=== PATIENT | female | born 1950 | race Caucasian/White ===

== ENCOUNTER 2017-06-29 15:04 | Outpatient (CLI) | payer MEDICARE, OTHER | END 2017-06-29 15:05 | disposition critical access hospital (66) | LOC: EMS 15:04 | PROVIDERS: ATTEND Surgery | DX: R51 Headache (principal); M79.602 Pain in left arm; W01.198A Fall on same level from slipping, tripping and stumbling with subsequent striking against other object, initial encounter; Y93.01 Activity, walking, marching and hiking; Y92.512 Supermarket, store or market as the place of occurrence of the external cause | CPT/HCPCS: A0425; A0429 ==

== ENCOUNTER 2017-06-29 19:14 | Outpatient (CLI) | payer MEDICARE, OTHER | END 2017-06-29 19:15 | disposition short-term general hospital (02) | LOC: EMS 19:14 | PROVIDERS: ATTEND Surgery | DX: R51 Headache (principal); M25.532 Pain in left wrist | CPT/HCPCS: A0425; A0428 ==

== ENCOUNTER 2017-07-17 08:43 | Day surgery (SDC) | payer MEDICARE, OTHER ==
[~2017-07-17 08:43] MED LIST: ceFAZolin 2 GM/50 ML 2 GM/50 ML BAG IV ONE
[2017-07-17] MEDS ORDERED: LACTATED RINGERS 1,000 ML IV ONE ×2 (09:26→12:40)
[2017-07-17] MEDS ORDERED: MIDAZOLAM 2 MG/2 ML VIAL IVP ONE (12:00)
[2017-07-17] MEDS ORDERED: LIDOCAINE-MPF 2% 5 ML VIAL IM ONE (12:00)
[2017-07-17] MEDS ORDERED: DEXAMETHASONE 4 MG/ML VIAL IVP ONE (12:00)
[2017-07-17] MEDS ORDERED: ONDANSETRON 4 MG/2 ML VIAL IVP ONE (12:00)
[2017-07-17] MEDS ORDERED: PROPOFOL 200 MG/20 ML VIAL IVP ONE (12:00)
[2017-07-17] MEDS ORDERED: fentaNYL 100 MCG/2 ML VIAL IVP ONE (12:00)
[2017-07-17] MEDS ORDERED: ROPIVACAINE 0.5% PF 20 ML AMPULE EP ONE (12:00)
--- NOTE | 2017-07-17 12:46 | XRAY Report ---
INTRAOPERATIVE IMAGING OF LEFT RADIUS FRACTURE FIXATION: 07/17/2017 CLINICAL INDICATION: Radial fracture. COMPARISON: 06/29/2017. FINDINGS: Intraoperative frontal and lateral images of the distal radius demonstrate side plate and screw fixation. 12 seconds of fluoroscopy time was provided to Dr. Hill; 9 spot images obtained. IMPRESSION: INTRAOPERATIVE IMAGING OF DISTAL RADIAL FRACTURE FIXATION. JOB #: [id number] EXT JOB #:[id number]
[2017-07-17 13:56] VITALS: BP 127/92
--- NOTE | 2017-07-17 17:54 | OPERATIVE REPORT ---
Operative Report - General Procedure Date: 07/17/17 Planned Procedure: ORIF left distal radius Pre-Op Diagnosis: Left wrist closed comminuted distal radius and ulna fracture Procedure Performed: ORIF left distal radius with volar locking plate Post Op Diagnosis: same - Procedure Note Primary Surgeon: STORM Secondary Surgeon: GERMAIN Anesthesia Provider: JORDIN Anesthesia Technique: General LMA, Regional block Pathology: NONE Estimated Blood Loss (mL): 10 Complications: NONE - Other Other Information/Narrative: Gecko dvr SET ([employer])
--- NOTE | 2017-07-19 03:56 | OPERATIVE REPORT ---
DATE OF SURGERY: 07/17/2017 00:00:00 SURGEON: Jai Hill MD. LENS SILVERER: None. ANESTHESIA: PHILLIP Banerjee. PREOPERATIVE DIAGNOSIS: Closed comminuted distal radius fracture on the left with ulnar styloid fract ure. POSTOPERATIVE DIAGNOSIS: Closed comminuted distal radius fracture on the left with ulnar styloid frac ture. PROCEDURE PERFORMED: Open reduction internal fixation of the left distal radius. IMPLANT: The Biomet distal volar radial locking set. TOURNIQUET TIME: About 19 minutes. ESTIMATED BLOOD LOSS: A few mL. INDICATIONS: This woman had suffered the above-mentioned injury 3 weeks prior to surgery. It took a w hile to get into referral to the clinic and have surgery set up. She was tilted into greater than 20 degrees dorsal tilt, had shortening of the radius and loss of inclination. DESCRIPTION OF PROCEDURE: The patient was brought into the operating room and placed under adequate g eneral anesthesia after a supraclavicular block was administered in the preop area. The left upper ex tremity was then prepped and sterilely draped in the usual fashion. An arm tourniquet was placed to 2 50 mmHg for about 90 minutes. Timeout was then held to identify the patient, site and procedure. The usual volar incision was made along the course of the flexor carpi radialis running distally into a zigzag to allow better radial visualization. The skin was cut sharply. The subcutaneous tissue was spread with scissors and bleeding points cauter ized with the bipolar device. The inner sheath of the flexor carpi radialis was then split longitudinally after displacement of the tendon to the ulnar side. A resolving hemorrhagic muscle was encountered. This was stripped off the margin of the radius carefully. Pronator elevation was carried out around the distal radius. A self-r etaining retractor was placed. This pushed the pronator to the ulnar side and helped protect the medi an nerve from direct pressure. After muscle was removed from the radius and the surface could be seen easily, attention was directed to the radial styloid. Here the brachial radialis tendon was encountered and the distal end cut was a zigzag to allow for healing in the length and position. The fracture line was not evident. Feeling along the volar radius with a Blauvelt, I eventually identifi ed the fracture line. It was possible to introduce a Blauvelt and later an osteotome into the fracture a garry. Osteotome was angled proximally so as to gather the most distal radius as possible. A levering m otion then could be done opening up the dorsum of the fracture where it had been trying to heal. It w as possible to bring the distal fragment back to a neutral tilt position, although further tilting re quired quite a lot of strain. Decision was made not to try to overdo this. The distal volar radial plate from the [employer] system was placed. It was the standard width, standard length. This was pinned in place. Positions were adjusted twice, moving the pins to allow for better positioning. A screw was gotten in the slot proximally and with tension, the plate could be levered down elevating the distal radius. Multiple smooth and threaded pins were placed in the distal segment. One additional bicortical screw was placed proximally, as well as 2 locking screws. C-arm fluoroscopy was used throughout the procedure with good views. At the end of the procedure, the construct was checked carefully. There did not appear to be any scre ws entering the joint. The radial styloid screw appeared to be very well anchored. The radial inclina tion had been restored. There was still possibly a small amount of radial length not restored. The wound was irrigated throughout the procedure and at the end. The pronator could not be reapproxim ated. The flexor carpi radialis sheath was then reapproximated superficial to the flexor carpi radial is tendon. The skin was closed with running 3-0 Prolene subcuticular stitches. A sterile bandage was applied. A bulky bandage was used to allow for some stiffening at the wrist, but avoid over-compressi on. The patient was awakened, extubated and taken to recovery room in good condition having tolerated the procedure well. 13:9:00 JOB #: [id number] EXT JOB #:[id number]
== END 2017-07-17 08:44 | disposition home or self-care (01) ==
LOC: SDS 08:43
PROVIDERS: ATTEND Orthopaedic Surgery
PROC: 0PSJ04Z Reposition Left Radius with Internal Fixation Device, Open Approach (ICD-10-PCS; principal; 2017-07-17 09:45)
DX: S52.612A Displaced fracture of left ulna styloid process, initial encounter for closed fracture (principal); S52.552A Other extraarticular fracture of lower end of left radius, initial encounter for closed fracture
CPT/HCPCS: 25607; C1713; J0690; J7120

== ENCOUNTER 2018-07-01 14:36 | Outpatient (CLI) | payer MEDICARE, OTHER | END 2018-07-01 14:37 | disposition critical access hospital (66) | LOC: EMS 14:36 | PROVIDERS: ATTEND Surgery | DX: S09.90XA Unspecified injury of head, initial encounter (principal); M25.562 Pain in left knee; M25.531 Pain in right wrist; W18.30XA Fall on same level, unspecified, initial encounter; Z91.81 History of falling; Y92.002 Bathroom of unspecified non-institutional (private) residence as the place of occurrence of the external cause | CPT/HCPCS: A0425; A0429 ==

== ENCOUNTER 2018-07-01 14:39 | Inpatient (IN) | payer MEDICARE, OTHER ==
[2018-07-01] MEDS ORDERED: HYDROcod/ACETAM 5/325 MG TABLET PO STA (14:45)
--- NOTE | 2018-07-01 14:48 | ED Physician Documentation ---
PD HPI Fall - Stated complaint Stated Complaint: GLF - History obtained from History obtained from: Patient, EMS - History of Present Illness Mechanism of injury: Lost balance (67-year-old woman with frequent falls. She was last seen here about a year ago, had a wrist fracture and also a tiny traumatic intracranial hemorrhage and was transferred. She falls frequently but has not really been hurt since that time. Today she was walking at home and fell and hit the back of her head on the drywall and also hurt her right wrist and left greater than right knee. She is unable to walk or bear weight. There was no syncopal episode today. She does not know why she falls. She is supposed to follow-up with a neurologist but has not yet made an appointment. She is on a couple of medications that might make her dizzy including Seroquel and Ativan.) Review of Systems Ten Systems: 10 systems reviewed and negative Constitutional: reports: Reviewed and negative Nose: reports: Reviewed and negative Throat: reports: Reviewed and negative Cardiac: reports: Reviewed and negative Respiratory: reports: Reviewed and negative PD PAST MEDICAL HISTORY - Past Medical History Cardiovascular: High cholesterol, Atrial fibrillation Respiratory: Pneumonia Endocrine/Autoimmune: HyPOthyroidism GI: Chronic diarrhea, Chronic constipation, Hemorrhoids : Incontinence, Nocturia, Frequency HEENT: Chronic vision loss Psych: Depression, Anxiety, Bipolar disorder, Panic attacks, ADD/ADHD, Post traumatic stress disorder, Obsessive compulsive disorder, Eating disorder Musculoskeletal: None Derm: None - Past Surgical History General: 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, 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, 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, Other - Present Medications Home Medications: Ambulatory Orders Medication Instructions Recorded Confirmed Lorazepam [Ativan] 1 mg PO DAILY PRN 07/14/17 07/01/18 Quetiapine Fumarate [Seroquel] 400 mg PO DAILY PM 07/14/17 07/01/18 RX: Buspirone HCl 30 mg PO QPM 07/14/17 07/01/18 RX: Levothyroxine Sodium 75 mcg PO QDAC 07/14/17 07/01/18 buPROPion HCl [Bupropion HCl Sr] 200 mg PO 0600,1500 07/14/17 07/01/18 RX: Amphetamine Sulfate [Evekeo] 20 mg PO QPMX3D 07/01/18 07/01/18 RX: Clomipramine HCl 200 mg PO QPM 07/01/18 07/01/18 - Allergies Allergies/Adverse Reactions: Allergies Allergy/AdvReac Type Severity Reaction Status Date / Time tetracycline Allergy Unknown Verified 06/29/17 15:38 - Social History Does the pt smoke?: No Smoking Status: Never smoker Does the pt drink ETOH?: No Does the pt have substance abuse?: No PD ED PE NORMAL - Vitals Vital signs reviewed: Yes - General General: Alert and oriented X 3, No acute distress - HEENT HEENT: PERRL, EOMI (No nystagmus) - Neck Neck: Supple, no meningeal sign, No bony TTP - Cardiac Cardiac: RRR, No murmur, Other (TTP R lat Chest wall) - Respiratory Respiratory: No respiratory distress, Clear bilaterally - Abdomen Abdomen: Normal bowel sounds, Soft, Non tender - Extremities Extremities: Other (There is a slight deformity of the right wrist and it is exquisitely tender and she is unable to range it at all. She has normal neurovascular function in the hand. She is tender over the left patella and tibial plateau and unable to lift it off the bed, she is less tender over the right knee, that is more at the proximal fibular head. Also Mild TTP about the right elbow, but decent ROM.) - Neuro Neuro: Alert and oriented X 3, Normal speech Eye Opening: Spontaneous Motor: Obeys Commands Verbal: Oriented GCS Score: 15 - Psych Psych: Normal mood, Normal affect Results - Vitals Vitals: Vital Signs - 24 hr 07/01/18 14:46 Temperature 36.8 C Heart Rate 81 Respiratory 18 Rate Blood Pressure 133/88 H O2 Saturation 100 Oxygen O2 Source Room air - Labs Labs: Laboratory Tests 07/01/18 07/01/18 07/01/18 16:45 16:45 16:45 WBC 5.6 RBC 4.04 L Hgb 13.3 Hct 38.9 MCV 96.1 MCH 32.9 H MCHC 34.2 RDW 13.7 Plt Count 110 L MPV 7.6 L Neut # (Auto) 3.8 Lymph # (Auto) 1.2 L [place] # (Auto) 0.5 Eos # (Auto) 0.1 Baso # (Auto) 0.0 Absolute Nucleated RBC 0.00 Nucleated RBC % 0.0 PT 13.4 H INR 1.2 Sodium 140 Potassium 4.0 Chloride 101 Carbon Dioxide 29 Anion Gap 10.0 BUN 19 Creatinine 1.0 Estimated GFR (MDRD) 55 L Glucose 98 Calcium 9.0 Total Bilirubin 0.3 AST 27 ALT 35 Alkaline Phosphatase 62 Total Protein 5.8 L Albumin 4.1 Globulin 1.7 L Albumin/Globulin Ratio 2.4 H Lipase 43 - Rads (name of study) 3 views of the right elbow Radiology: EMP read contemporaneously (Negative) 4 views of both knees Radiology: EMP read contemporaneously (Comminuted displaced left patellar fracture with large effusion) CT of the head Radiology: EMP read contemporaneously (No acute disease) R wrist 4v Radiology: EMP read contemporaneously (Comminuted intra-articular impaction distal radius fracture) Procedures - Splint (location) R wrist Splint applied by: Physician Type of splint: Fiberglass, Short arm, Volar cock up Other: Patient tolerated well, No complications, Neurovascular intact PD MEDICAL DECISION MAKING - ED course ED course: 67-year-old woman is with balance problems and frequent today, thoroughly imaged and findings include a comminuted impacted right wrist fracture and a displaced patellar fracture and unable to fire the quadricep. Given the multiple orthopedic injuries and bad baseline status should probably stay in the hospital until this is fixed and I spoke with Dr. Morin, the on-call orthopedist who agrees and defers to the hospitalist for observation and I spoke with Dr. Viramontes for observation at 4:30 PM. Departure - Departure Disposition: ED Place in Observation Clinical Impression: Head injury, Neck sprain, Right wrist fracture, Left patella fracture, Contusion of right chest wall Condition: Serious Discharge Date/Time: 07/01/18 18:11
--- NOTE | 2018-07-01 15:52 | XRAY Report ---
Reason: fall, r wrist inj Procedure Date: 07/01/2018 Accession Number: [id number] / [id number] Procedure: XR - Wrist 4 View RT CPT Code: FULL RESULT: EXAM: RIGHT WRIST RADIOGRAPHY EXAM DATE: 07/01/2018 03:05 PM. CLINICAL HISTORY: Fall, r wrist inj. COMPARISON: None. TECHNIQUE: 3 views. FINDINGS: Bones: Normal. No fractures or bone lesions. Joints: Comminuted intra-articular impaction fracture of the distal right radial metaphysis. Soft Tissues: Normal. No soft tissue swelling. IMPRESSION: Comminuted intra-articular impaction fracture of the distal right radial metaphysis. RADIA
--- NOTE | 2018-07-01 15:53 | XRAY Report ---
Reason: elbow inj fall Procedure Date: 07/01/2018 Accession Number: [id number] / [id number] Procedure: XR - Elbow 3 View RT CPT Code: FULL RESULT: EXAM: RIGHT ELBOW RADIOGRAPHY EXAM DATE: 07/01/2018 03:05 PM. CLINICAL HISTORY: Elbow inj fall. COMPARISON: None. TECHNIQUE: 3 views. FINDINGS: Bones: Normal. No fractures or bone lesions. Joints: Normal. No effusion. No subluxation. Soft Tissues: Normal. No soft tissue swelling. IMPRESSION: Normal elbow radiography. RADIA
--- NOTE | 2018-07-01 15:54 | XRAY Report ---
Reason: fall, both knee inj Procedure Date: 07/01/2018 Accession Number: [id number] / [id number] Procedure: XR - Knee 4 View BILAT CPT Code: FULL RESULT: EXAMS: 1. Right Knee Radiography 2. Left Knee Radiography EXAM DATE:07/01/2018 03:05 PM. CLINICAL HISTORY:Fall, both knee inj. COMPARISON: None. TECHNIQUE: 4 views each. FINDINGS: Right Knee: Bones: Normal. No fractures or bone lesions. Joints: Normal. No effusion. No subluxations. Soft Tissues: Normal. No soft tissue swelling. Left Knee: Bones: Comminuted displaced fracture of the left patella. Joints: Large joint effusion. Soft Tissues: Normal. No soft tissue swelling. IMPRESSION: Comminuted displaced fracture of the left patella with a large joint effusion. RADIA
--- NOTE | 2018-07-01 16:14 | CT Report ---
Reason: fall, head inj Procedure Date: 07/01/2018 Accession Number: [id number] / [id number] Procedure: CT - Head W/O CPT Code: FULL RESULT: EXAM: CT HEAD EXAM DATE: 07/01/2018 03:56 PM. CLINICAL HISTORY: Fall, head inj. COMPARISON: None. TECHNIQUE: Multiaxial CT images were obtained from the foramen magnum to the vertex. Reformats: Sagittal and coronal. IV contrast: None. In accordance with CT protocol optimization, one or more of the following dose reduction techniques were utilized for this exam: automated exposure control, adjustment of mA and/or KV based on patient size, or use of iterative reconstructive technique. FINDINGS: Parenchyma: No intraparenchymal hemorrhage. No evidence of mass, midline shift, or CT findings of infarction. Schultz-white differentiation is distinct. Extraaxial Spaces: Normal for age. No subdural or epidural collections identified. Ventricles: Normal in size and position. Sinuses and Orbits: Imaged paranasal sinuses, orbits, and mastoids show no significant abnormality. Bones: No evidence of fracture or calvarial defect. Other: None. IMPRESSION: No acute intracranial abnormality. RADIA
--- NOTE | 2018-07-01 16:20 | CT Report ---
Reason: R chest wall inj Procedure Date: 07/01/2018 Accession Number: [id number] / [id number] Procedure: CT - Chest W/O CPT Code: FULL RESULT: EXAM: CT CHEST EXAM DATE: 07/01/2018 03:56 PM. CLINICAL HISTORY: R chest wall inj. COMPARISONS: None. TECHNIQUE: Routine helical CT imaging was performed through the chest. IV contrast: None. Reconstructions: Coronal and sagittal. In accordance with CT protocol optimization, one or more of the following dose reduction techniques were utilized for this exam: automated exposure control, adjustment of mA and/or KV based on patient size, or use of iterative reconstructive technique. FINDINGS: Lungs/Pleura: No nodules, bronchial thickening, consolidation, or edema. Pulmonary vasculature is normal. No pericardial or pleural effusion. No pneumothorax. Mediastinum: Small hiatal hernia.. No adenopathy or masses. The heart and great vessels are normal. Bones: Healed fracture of the right 11th, 10th and ninth ribs. Visualized Abdomen: Unremarkable. Other: None. IMPRESSION: 1. Healing nondisplaced fractures of the right ninth, 10th and 11th ribs. 2. No focal consolidation or pleural effusion or pneumothorax. RADIA
--- NOTE | 2018-07-01 16:32 | CT Report ---
Reason: fall, head inj Procedure Date: 07/01/2018 Accession Number: [id number] / [id number] Procedure: CT - Cervical Spine W/O CPT Code: FULL RESULT: EXAM: CT CERVICAL SPINE WITHOUT CONTRAST DATE: 07/01/2018 03:56 PM. HISTORY: Fall, head inj. COMPARISONS: None. TECHNIQUE: Thin-section axial images were acquired of the cervical spine without contrast. Post-processing: Coronal and sagittal reformats. Other: None. In accordance with CT protocol optimization, one or more of the following dose reduction techniques were utilized for this exam: automated exposure control, adjustment of mA and/or KV based on patient size, or use of iterative reconstructive technique. FINDINGS: Alignment: No scoliosis or spondylolisthesis. Bones: No fracture or bone lesion. Interspace Levels/Facets: C1-C2: Unremarkable. C2-C3: Unremarkable. C3-C4: Unremarkable. C4-C5: Unremarkable. C5-C6: Unremarkable. C6-C7: Unremarkable. C7-T1: Unremarkable. Musculature: Normal. No fatty atrophy. Other: The paravertebral and prevertebral soft tissues are unremarkable. The lung apices are clear. IMPRESSION: No acute cervical spine fracture or listhesis. RADIA
[2018-07-01] MEDS ORDERED: ONDANSETRON 4 MG/2 ML VIAL IVP PRN (16:51)
[2018-07-01] MEDS ORDERED: PROCHLORPERAZINE 10 MG/2 ML VIAL IVP PRN (16:51)
[2018-07-01] MEDS ORDERED: TEMAZEPAM 15 MG CAPSULE PO PRN (16:51)
[2018-07-01 16:55] LABS: BASOPHILS % (AUTO) 0.3 %; EOSINOPHILS # (AUTO) 0.1 10^3/uL (0.0-0.7); EOSINOPHILS % (AUTO) 1.6 %; HGB - HEMOGLOBIN 13.3 g/dL (12.0-16.0); LYMPHOCYTES # (AUTO) 1.2 10^3/uL (1.5-3.5); LYMPHOCYTES % (AUTO) 21.4 %; MEAN CORPUSCULAR HEMOGLOBIN 32.9 pg (27.0-31.0); MEAN CORPUSCULAR HGB CONC 34.2 g/dL (32.0-36.0); MEAN CORPUSCULAR VOLUME 96.1 fL (81.0-99.0); MEAN PLATELET VOLUME 7.6 fL (7.9-10.8); MONOCYTES # (AUTO) 0.5 10^3/uL (0.0-1.0); MONOCYTES % (AUTO) 9.2 %; NEUTROPHILS # (AUTO) 3.8 10^3/uL (1.5-6.6); NEUTROPHILS % (AUTO) 67.5 %; PLT - PLATELET COUNT 110 10^3/uL (130-450); RED BLOOD COUNT 4.04 10^6/uL (4.20-5.40); RED CELL DISTRIBUTION WIDTH 13.7 % (12.0-15.0); WHITE BLOOD COUNT 5.6 x10^3/uL (4.8-10.8)
[2018-07-01 17:02] LABS: INR 1.2 (0.8-1.2); PT - PROTHROMBIN TIME 13.4 secs (9.9-12.6)
[2018-07-01 17:04] LABS: ALBUMIN 4.1 g/dL (3.2-5.5); ALBUMIN/GLOBULIN RATIO 2.4 (1.0-2.2); BILIRUBIN,TOTAL 0.3 mg/dL (0.2-1.0); TOTAL PROTEIN 5.8 g/dL (6.7-8.2)
--- NOTE | 2018-07-01 18:20 | HISTORY & PHYSICAL EXAMINATION ---
Chief Complaint - Chief Complaint Chief Complaint: Knee and wrist pain History of Present Illness - Admitted From Admitted From:: ED - History Obtained From Records Reviewed: Previous hospital records in [facility] History obtained from: Patient Exam Limitations: R arm and L knee in splint - History of Present Illness HPI Comment/Other: Pt is a 67 y.o. female with PMH of recurrent falling, known since > 10 years, and hx of PTSD, OCD, bipolar, anxiety, agoraphobia who was walking in her home today and sustained an unprovoked fall in her bathroom. She fell in a manner to hit her head on the drywall (which left a dent) and land on vinyl floor and injured her L knee and R wrist. She reports that she was "out of it" for the fall, but denies true LOC, which is apparently an ongoing issue for her according to her and her , and as per chart review. She denied chest pain, sob, or presyncope prior to the fall and denies any mechanical trigger to cause the fall. She was taken to ED by EMS where she was evaluated with multiple imaging modalities leading to most significantly a diagnosis of a transverse fracture of the L patella, and complex fracture of the R wrist. Orthopedics was called from ED and she was recommended to have fixation of the L patellar fracture, with probably non-operative management of the R wrist. The hospitalist service was called to admit the patient and perform a pre- operative evaluation and medical optimization. History - Past Medical History Cardiovascular: reports: High cholesterol. denies: Coronary artery disease, Angina, Arrhythmia Respiratory: denies: COPD, Shortness of breath, CPAP use Neuro: reports: Headaches, Seizure disorder (Possible - per pt has been told may be type of seizure (Petit mal?) but has not seen neuro), Other (Balance and gait abnormality). 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 Lifestyle related per pt), Father: Cancer, Brother: Cancer Family History Comment/Other: Pt one of 7 kids, knows limited info Re: FH Living arrangement: At home Living Situation: With spouse/s.o. - Substance History Use: Uses substance without health or social issues: NONE, Anxiolytic, Psychoactive Drug (High probability that falls are medicine related - but this has not yet been diagnosed) Abuse: Recurrent use of substance despite neg consequences: NONE Dependence: Experiences withdrawal or developed tolerances: NONE Tobacco Details: Other (Quit 20 years ago, 20 pack year hx) - POLST Patient has POLST: No POLST Status: Full Code Meds/Allgy - Home Medications Home Medications: Ambulatory Orders Medication Instructions Recorded Confirmed Buspirone HCl 30 mg PO QPM 07/14/17 07/01/18 Levothyroxine Sodium 75 mcg PO QDAC 07/14/17 07/01/18 Lorazepam [Ativan] 1 mg PO DAILY PRN 07/14/17 07/01/18 Quetiapine Fumarate [Seroquel] 400 mg PO DAILY PM 07/14/17 07/01/18 buPROPion HCl [Bupropion HCl Sr] 200 mg PO 0600,1500 07/14/17 07/01/18 Amphetamine Sulfate [Evekeo] 20 mg PO QPMX3D 07/01/18 07/01/18 Clomipramine HCl 200 mg PO QPM 07/01/18 07/01/18 - Allergies Allergies/Adverse Reactions: Allergies Allergy/AdvReac Type Severity Reaction Status Date / Time tetracycline Allergy Unknown Verified 06/29/17 15:38 Review of Systems - Constitutional Constitutional: reports: Weakness - Eyes Eyes: denies: Blurred vision, Vision loss, Dipolpia - Cardiovascular Cariovascular: denies: Irregular heart rate, Chest pain, Lightheadedness, Syncope, Exertional dyspnea, Decr. exercise tolerance, Orthopnea - Respiratory Respiratory: denies: Cough, Wheezing, SOB at rest, SOB with exertion - Gastrointestinal Gastrointestinal: reports: Constipation. denies: Abdominal pain, Diarrhea - Musculoskeletal Musculoskeletal: reports: Limited range of motion, Joint pain, Joint swelling - Neurological Neurological: reports: Abnormal gait - Psychiatric Psychiatric: reports: Anxiety Prior Level of Functionality: Independent in home but rarely goes out due to social anxiety Exam - Vital Signs Reviewed Vital Signs: Yes Vital Signs: Vital Signs x48h Temp Pulse Resp BP Pulse Ox 07/01/18 17:10 78 12 134/84 H 99 07/01/18 14:46 36.8 C 81 18 133/88 H 100 - Physical Exam General Appearance: positive: No acute distress Eyes Bilateral: positive: Normal inspection, EOMI Neck: positive: Nml inspection Respiratory: positive: No respiratory distress, Breath sounds nml, Wheezes Cardiovascular: positive: Regular rate & rhythm, No murmur, No gallop Abdomen: positive: Non-tender, No organomegaly, Nml bowel sounds, No distention Skin: positive: Color nml Extremities: positive: Other (L knee in extension splint, LLE neurovascularly intact. R Wrist in splint - neurovascularly intact) Neurologic/Psychiatric: positive: Oriented x3 Conclusion/Plan - Problem List (1) Pre-operative examination for internal medicine Conclusion/Plan: Pt has no known cardiac or pulmonary hx other than a-fib documented in chart but probable paroxysmal as pt sinus on exam. She has no limitations due to chest pain or sob. No known dyspnea on exertion or orthopnea. She has remote hx of smoking. She has tolerated surgery in the past as recently as 1 year ago in this hospital with no post operative complications She has no known FH of anasthesia complications such as malignant hyperthermia. Her revised cardiac risk index is 0.4%-0.5%. I do not identify any barriers or contraindications for orthopedic surgery and feel that she is medically optimized (2) Falls frequently Conclusion/Plan: Possible medication related. Chronic problem, extent of workup unclear, but would recommend completion as outpt. May need placement in SNF due to likely prolonged non-weight bearing status of the LLE and poor home support with hx of falling and elderly spouse. Will get PT consult. Will try to minimize sedating meds and PRN anxiet meds. (3) Left patella fracture Conclusion/Plan: Transverse - medically indicated to fix surgically as patellar tendon and quad tendon will continue to sperate if not fixed. Ortho on board, will keep NPO PM and OR in am. Qualifiers: Encounter type: initial encounter Fracture type: closed Fracture morphology: comminuted Fracture alignment: displaced Qualified Code(s): S82.042A - Displaced comminuted fracture of left patella, initial encounter for closed fracture (4) Right wrist fracture Qualifiers: Encounter type: initial encounter Fracture type: closed Qualified Code(s): S62.101A - Fracture of unspecified carpal bone, right wrist, initial encounter for closed fracture - Lab Results Lab results reviewed: Yes Fish Bones: 07/01/18 16:45 07/01/18 16:45 - Diagnostic Imaging Results Diagnostic Imaging Results: positive: Final report reviewed, Read independently
[2018-07-01] MEDS: ACETAMINOPHEN 325 MG TABLET PO PRN ×2 (18:50→22:25)
[2018-07-01] MEDS: oxyCODONE 5 MG TABLET PO PRN ×2 (18:50→22:24)
[2018-07-01] MEDS: SODIUM CHLORIDE FLUSH 0.9% 10 ML SYRINGE IVP PRN (19:13)
[2018-07-01] MEDS: SODIUM CHLORIDE FLUSH 0.9% 10 ML SYRINGE IVP SCH (19:21)
[2018-07-01] MEDS ORDERED: AMPHETAMINE SULFATE PO SCH (21:00)
[2018-07-01] MEDS: busPIRone 5 MG TABLET PO SCH (22:07)
[2018-07-01] MEDS: QUEtiapine 100 MG TABLET PO SCH (22:07)
[2018-07-01] MEDS: CLOMIPRAMINE HCL 200 MG PO SCH (22:26)
[2018-07-02] MEDS: SODIUM CHLORIDE FLUSH 0.9% 10 ML SYRINGE IVP SCH ×3 (02:15→17:00)
[2018-07-02] MEDS: buPROPion SR 100 MG TABLET PO SCH ×2 (05:26→14:34)
[2018-07-02] MEDS: oxyCODONE 5 MG TABLET PO PRN ×4 (05:26→18:17)
[2018-07-02] MEDS: SODIUM CHLORIDE FLUSH 0.9% 10 ML SYRINGE IVP PRN (05:42)
[2018-07-02] MEDS: SODIUM CHLORIDE 0.9% 1,000 ML IV SCH ×2 (05:42→18:17)
[2018-07-02] MEDS: LEVOTHYROXINE 75 MCG TABLET PO SCH (07:18)
[2018-07-02] MEDS ORDERED: AMPHETAMINE SULFATE PO SCH (08:07)
[2018-07-02] MEDS: ACETAMINOPHEN 325 MG TABLET PO PRN (08:20)
[2018-07-02] MEDS: LORazepam 1 MG TABLET PO PRN (08:21)
[2018-07-02] MEDS: FAMOTIDINE 20 MG/50 ML 50 ML IV SCH (08:25)
[2018-07-02] MEDS: POLYETHYLENE GLYCOL 3350 17 GM PACKET PO SCH ×2 (08:27→16:59)
--- NOTE | 2018-07-02 10:34 | PROVIDER PROGRESS NOTE ---
Subjective - Prog Note Date Prog Note Date: 07/02/18 Prog Note Time: 10:33 - Subjective Pt reports feeling: No change Subjective: Pt c/o pain in the upper back, and along the R thorax/ribs/chest wall. Current Medications - Current Medications Current Medications: Active Medications Acetaminophen (Tylenol) 650 mg PO Q4HR PRN PRN Reason: Pain 1 to 4 Last Admin: 07/02/18 08:20 Dose: 650 mg Bupropion HCl (Wellbutrin Sr) 200 mg PO 0600,1500 [facility] Last Admin: 07/02/18 05:26 Dose: 200 mg Buspirone HCl (Buspar) 30 mg PO QPM [facility] Last Admin: 07/01/18 22:07 Dose: 30 mg Famotidine (Pepcid 20 Mg/50 Ml) 50 mls @ 100 mls/hr IV DAILY [facility] Last Infusion: 07/02/18 09:00 Dose: Infused Sodium Chloride (Normal Saline 0.9%) 1,000 mls @ 83.333 mls/hr IV .Q12H [facility] Last Admin: 07/02/18 05:42 Dose: 83.333 mls/hr Levothyroxine Sodium (Synthroid) 75 mcg PO QDAC [facility] Last Admin: 07/02/18 07:18 Dose: 75 mcg Lorazepam (Ativan) 1 mg PO DAILY PRN PRN Reason: Anxiety Last Admin: 07/02/18 08:21 Dose: 1 mg Non-Formulary Medication (Clomipramine Hcl [Clomipramine Hcl]) 200 mg PO QPM [facility] Last Admin: 07/01/18 22:26 Dose: 200 mg Ondansetron HCl (Zofran Inj) 4 mg IVP Q6HR PRN PRN Reason: Nausea / Vomiting Oxycodone HCl (Roxicodone) 10 mg PO Q4HR PRN PRN Reason: Pain 8 to 10 Last Admin: 07/02/18 05:26 Dose: 10 mg (Amphetamine Sulfate (20 Mg) Tab) 1 each PO QPM [facility] Stop: 07/03/18 21:01 Polyethylene Glycol (Miralax) 17 gm PO DAILY [facility] Last Admin: 07/02/18 08:27 Dose: Not Given Prochlorperazine Edisylate (Compazine Inj) 10 mg IVP Q6HR PRN PRN Reason: Nausea / Vomiting Quetiapine Fumarate (Seroquel) 400 mg PO QPM [facility] Last Admin: 07/01/18 22:07 Dose: 400 mg Sodium Chloride (Normal Saline Flush 0.9%) 10 ml IVP PRN PRN PRN Reason: NEEDED PER PROVIDER ORDERS Last Admin: 07/02/18 05:42 Dose: 10 ml Sodium Chloride (Normal Saline Flush 0.9%) 10 ml IVP 0100,0900,1700 [facility] Last Admin: 07/02/18 08:28 Dose: Not Given Temazepam (Restoril) 15 mg PO QPM PRN PRN Reason: Insomnia Last Admin: 07/01/18 22:25 Dose: 15 mg Buspirone HCl 30 mg PO QPM 07/14/17 Levothyroxine Sodium 75 mcg PO QDAC 07/14/17 Lorazepam [Ativan] 1 mg PO DAILY PRN 07/14/17 Quetiapine Fumarate [Seroquel] 400 mg PO DAILY PM 07/14/17 buPROPion HCl [Bupropion HCl Sr] 200 mg PO 0600,1500 07/14/17 Amphetamine Sulfate [Evekeo] 20 mg PO QPMX3D 07/01/18 Clomipramine HCl 200 mg PO QPM 07/01/18 Objective - Vital Signs/Intake & Output Vital Signs: Vital Signs x48h Temp Pulse Pulse Resp BP Pulse Ox 07/02/18 08:36 36.7 C 85 19 94 07/02/18 07:57 36.7 C 85 19 115/72 93 07/02/18 03:37 104/66 Intake & Output: Intake & Output 06/29/18 06/30/18 07/01/18 07/02/18 23:59 23:59 23:59 23:59 Intake Total 700 170 Output Total 500 Balance 700 -330 - Objective General Appearance: positive: No acute distress Eyes Bilateral: positive: Normal inspection Neck: positive: Nml inspection, Thyroid nml Respiratory: positive: Breath sounds nml Cardiovascular: positive: Regular rate & rhythm, No murmur, No gallop Abdomen: positive: Non-tender, No organomegaly, Nml bowel sounds Back: positive: Other (TTP along the R upper back, w/ bruising) Skin: positive: Other (Echymosis to the R upper back and less so chest wall) Extremities: positive: Other (RUE in short arm splint - not removed for exam, neurovascularly intact to the distal extremities) Neurologic/Psychiatric: positive: Oriented x3, CN's nml (2-12), Motor nml, Sensation nml - Lab Results Fish Bones: 07/01/18 16:45 07/01/18 16:45 Other Labs: Lab Results x24hrs 07/01/18 07/01/18 07/01/18 Range/Units 16:45 16:45 16:45 WBC 5.6 (4.8-10.8) x10^3/uL RBC 4.04 L (4.20-5.40) 10^6/uL Hgb 13.3 (12.0-16.0) g/dL Hct 38.9 (37.0-47.0) % MCV 96.1 (81.0-99.0) fL MCH 32.9 H (27.0-31.0) pg MCHC 34.2 (32.0-36.0) g/dL RDW 13.7 (12.0-15.0) % Plt Count 110 L (130-450) 10^3/uL MPV 7.6 L (7.9-10.8) fL Neut # (Auto) 3.8 (1.5-6.6) 10^3/uL Lymph # (Auto) 1.2 L (1.5-3.5) 10^3/uL [place] # (Auto) 0.5 (0.0-1.0) 10^3/uL Eos # (Auto) 0.1 (0.0-0.7) 10^3/uL Baso # (Auto) 0.0 (0.0-0.1) 10^3/uL Absolute Nucleated RBC 0.00 x10^3/uL Nucleated RBC % 0.0 /100WBC PT 13.4 H (9.9-12.6) secs INR 1.2 (0.8-1.2) Sodium 140 (135-145) mmol/L Potassium 4.0 (3.5-5.0) mmol/L Chloride 101 (101-111) mmol/L Carbon Dioxide 29 (21-32) mmol/L Anion Gap 10.0 (6-13) BUN 19 (6-20) mg/dL Creatinine 1.0 (0.4-1.0) mg/dL Estimated GFR (MDRD) 55 L (>89) Glucose 98 (70-100) mg/dL Calcium 9.0 (8.5-10.3) mg/dL Total Bilirubin 0.3 (0.2-1.0) mg/dL AST 27 (10-42) IU/L ALT 35 (10-60) IU/L Alkaline Phosphatase 62 (42-121) IU/L Total Protein 5.8 L (6.7-8.2) g/dL Albumin 4.1 (3.2-5.5) g/dL Globulin 1.7 L (2.1-4.2) g/dL Albumin/Globulin Ratio 2.4 H (1.0-2.2) Lipase 43 (22-51) U/L - Diagnostic Imaging Diagnostic Imaging Results: positive: Final report reviewed, Read independently ABX Reporting Has patient been on IV antibiotics over the past 48 hours?: No Assessment/Plan - Problem List (2) Falls frequently Impression: Chronic problem, not acute syncope. Has had some outpt w/u, but not with neurology. Likely 2/2 polypharmacy with varios psych meds. Cont to monitor, but no reversible metabolic sources identified up to this point on this admission. (3) Left patella fracture Impression: D/W Dr De La Garza this am at bedside. Will need fixation, pending availability of hardware needed for [place] have to be [place]. Not having surgery today, probably tomorrow. Qualifiers: Encounter type: initial encounter Fracture type: closed Fracture morphology: comminuted Fracture alignment: displaced Qualified Code(s): S82.042A - Displaced comminuted fracture of left patella, initial encounter for closed fracture (4) Right wrist fracture Impression: Impacted articular fracture of radial metaphysis. Ortho currently decided on operative vs non-operative tx, pending results of CT. Not going to OR today, and if this is operable, will need prolonged OR time. Meanwhile, pain controlled with current pain meds, cont splint. Qualifiers: Encounter type: initial encounter Fracture type: closed Qualified Code(s): S62.101A - Fracture of unspecified carpal bone, right wrist, initial encounter for closed fracture (5) Psychiatric disorder Impression: Per pt, pt has multiple pscyh problems including bipolar, OCD, PTSD. Unclear extend of true diagosis. Pt states she recently "fired" her psychiatrist. For now, cont home meds. These may need to be adjusted outpt, but will need to be weaned.
--- NOTE | 2018-07-02 13:03 | CT Report ---
Reason: RIGHT WRIST EVAL INTRARTIC RADIUS. Procedure Date: 07/02/2018 Accession Number: [id number] / [id number] Procedure: CT - Upper Extremity Right W/O CPT Code: FULL RESULT: EXAM: RIGHT WRIST CT WITHOUT CONTRAST EXAM DATE: 07/02/2018 11:05 AM. CLINICAL HISTORY: Fracture. COMPARISON: Radiographs 06/23/2018. TECHNIQUE: Thin-section axial images were acquired of the wrist without contrast. Post-processing: Coronal and sagittal reformats. Other: None. In accordance with CT protocol optimization, one or more of the following dose reduction techniques were utilized for this exam: automated exposure control, adjustment of mA and/or KV based on patient size, or use of iterative reconstructive technique. FINDINGS: Bones: Mildly comminuted, displaced, and impacted intra-articular fracture distal radius. Primary fracture line extends transversely through the metaphysis with extension into the distal radial ulnar joint. Impaction at the dorsal and ulnar aspect of the articular surface results in dorsal angulation of the articular surface measuring 21 degrees relative to the diaphysis. Comminution of the fracture results in a region of articular surface disruption measuring 0.5 x 2.1 cm, AP by transverse. A 2 mm linear fracture fragment present between the articular surfaces at this site. Additional fracture line extends obliquely into the volar aspect of the articular surface. Overall, fracture involves greater than 50% of the articular surface. Mildly comminuted and displaced ulnar styloid fracture. No discrete displaced fracture visualized in the carpus. Joints: Dorsal angulation of the articular surface distal radius. Widening of the scapholunate interval measuring 0.5 cm. Mild widening also present in the pisotriquetral joint with diastases of the osseous fragments measuring 0.5 cm. Small radiocarpal and midcarpal joint effusions. Punctate ossific fragments at the dorsal aspect of the proximal pole of the scaphoid and triquetral. Musculature: No gross fatty atrophy. Evaluation for muscle edema limited on CT. Evaluation of the tendons limited on CT. Other: Mild subcutaneous edema over the dorsal and volar aspects of the wrist. IMPRESSION: 1. Mildly comminuted, displaced, and impacted intra-articular fracture distal radius. 2. 21 degrees dorsal angulation of the articular surface distal radius. 3. Fracture also extends into the distal radial ulnar joint. 4. Small radiocarpal and midcarpal joint effusions. 5. 2 mm ossific fragment between the articular surfaces distal radius and lunate. Two punctate ossific fragments project at the dorsal margin radiocarpal joint. 6. Mildly comminuted and displaced ulnar styloid fracture. 7. Widening of the scapholunate interval, age-indeterminate, suggestive of scapholunate ligament injury. 8. Widening of the pisotriquetral joint, age-indeterminate. RADIA
--- NOTE | 2018-07-02 13:12 | CONSULTATION NOTE ---
Referring Provider Name of Referring Provider:: Amador Escobar MD Consult Date: 07/02/18 (asked to evaluate patient for left patella fracture) Chief Complaint - Chief Complaint Chief Complaint: consultation requested for left patella fracture History of Present Illness - History of Present Illness HPI Comment/Other: Nika is a 67-year-old female with multiple medical/psychiatric history in her usual state of health until 07/01/2018 when she sustained a fall. She reportedly has been falling quite a bit over the last number of months for unclear reasons. Patient reportedly injured her left patella and orthopedics was consulted to evaluate for left patella fracture. Incidentally the patient was reported to have a right wrist fracture as well. The patient was admitted form multiple reasons including safety and inability to care for herself given the concommitant right upper extremity and left lower extremity injuries as well as her history and unclear reasons for her falling. History - Past Medical History Cardiovascular: reports: High cholesterol, Atrial fibrillation Respiratory: reports: Pneumonia Neuro: reports: Headaches, Seizure disorder, Other Endocrine/Autoimmune: reports: HyPOthyroidism GI: reports: Chronic diarrhea, Chronic constipation, Hemorrhoids : reports: Incontinence, Nocturia, Frequency HEENT: reports: Chronic vision loss Psych: reports: Depression, Anxiety, Bipolar disorder, Panic attacks, ADD/ADHD, Post traumatic stress disorder, Obsessive compulsive disorder, Eating disorder Musculoskeletal: reports: None Derm: reports: None MRSA Hx?: No Other Past Medical History: possible seizures, loss of balance with frequent falls (unaware of falling). Difficulty with word finding. 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 Lifestyle related per pt), Father: Cancer, Brother: Cancer Family History Comment/Other: Pt one of 7 kids, knows limited info Re: FH Living arrangement: At home Living Situation: With spouse/s.o. - Substance History Use: Uses substance without health or social issues: NONE, Anxiolytic, Psychoactive Drug (High probability that falls are medicine related - but this has not yet been diagnosed) Abuse: Recurrent use of substance despite neg consequences: NONE Dependence: Experiences withdrawal or developed tolerances: NONE Tobacco Details: Other (Quit 20 years ago, 20 pack year hx) - POLST Patient has POLST: No POLST Status: Full Code Meds/Allgy - Home Medications Home Medications: Ambulatory Orders Medication Instructions Recorded Confirmed Buspirone HCl 30 mg PO QPM 07/14/17 07/01/18 Levothyroxine Sodium 75 mcg PO QDAC 07/14/17 07/01/18 Lorazepam [Ativan] 1 mg PO DAILY PRN 07/14/17 07/01/18 Quetiapine Fumarate [Seroquel] 400 mg PO DAILY PM 07/14/17 07/01/18 buPROPion HCl [Bupropion HCl Sr] 200 mg PO 0600,1500 07/14/17 07/01/18 Amphetamine Sulfate [Evekeo] 20 mg PO QPMX3D 07/01/18 07/01/18 Clomipramine HCl 200 mg PO QPM 07/01/18 07/01/18 Calcium Carbonate [Antacid] 400 mg PO BID 07/02/18 07/02/18 Polyethylene Glycol 3350 [Miralax] 17 gm PO Q3D 07/02/18 07/02/18 - Allergies Allergies/Adverse Reactions: Allergies Allergy/AdvReac Type Severity Reaction Status Date / Time tetracycline Allergy Unknown Verified 06/29/17 15:38 Review of Systems - Other Findings Other Findings: Patient reports some minimal right wrist and left knee pain. She denies head or neck injury denies constitutional symptoms at this time or cardiovascular neurovascular type symptoms preceding or after the fall. Exam - Vital Signs Vital Signs: Vital Signs x48h Temp Pulse Pulse Resp BP Pulse Ox 07/02/18 08:36 36.7 C 85 19 94 07/02/18 07:57 36.7 C 85 19 115/72 93 - Physical Exam Comments/Other: Patient's right upper extremity is in a splint the edges of the splint noted to be padded no skin violation noted she is able to demonstrate gross radial median ulnar motor and sensory function with digits warm throughout with good cap refill less than 2 seconds generally. Patient's left lower extremity is in a knee immobilizer with soft padding underneath the knee skin is intact though there is significant effusion in the prepatellar and left knee joint region. Calf thigh soft nontender she is able to initiate flexion extension ankle and toes but is not able to actively extend the knee. Conclusion/Plan - Diagnosis Diagnosis: Comminuted intra-articular right distal radius fracture and left comminuted intra-articular patella fracture - Plan Plan: Discussed mary grace CT scan of her right wrist and her x-rays of the left knee. We talked about options and we forward for evaluation treatment and operative and nonoperative treatment. Talked about the natural history and relevant literature for these types of injuries. She has experience with a contralateral left distal radius fracture and surgery in the past. We discussed the severity of her injuries in particular the intra-articular and comminuted nature is. We talked about for the right wrist and potentially left knee the potential for failure of surgery the potential for hardware prominence and need to remove hardware all potential for need for additional procedures or even wrist fusion on the right side or other salvage procedure should the above fail specifically as it pertains to the fact that she has a significantly comminuted intra-articular component to her fracture. Went into general risk benefits alternatives of operative and nonoperative treatment. Talked about potential operative risks including but not limited to infection wound problems nerve or blood vessel injury numbness tingling weakness pain stiffness decreased range of motion decreased strength decreased function worsening of her condition failure to "cure" patient problem iatrogenic injury bleeding blood loss blood clot blood clot embolus positioning complications anesthetic complications including but not limited to . Nika verbalized understanding above she verbalized her experience with surgery in the past ve rbalized wish to proceed with operative intervention for the right wrist and left knee. Informed consent was given. We did discuss rehabilitation course. Talked about perioperative management. And we will plan to proceed with operative intervention once appropriate equipment and OR time have been established and patient is found to be optimized from medical perspective. see Hospitalist input. Procedure is right distal radius open reduction internal fixation left patella open reduction internal fixation. - Lab Results Lab results reviewed: Yes Fish Bones: 07/01/18 16:45 07/01/18 16:45
[2018-07-02] MEDS: busPIRone 5 MG TABLET PO SCH (20:57)
[2018-07-02] MEDS: CLOMIPRAMINE HCL 200 MG PO SCH (20:57)
[2018-07-02] MEDS: QUEtiapine 100 MG TABLET PO SCH (20:57)
[2018-07-03] MEDS: SODIUM CHLORIDE FLUSH 0.9% 10 ML SYRINGE IVP SCH ×3 (01:14→17:07)
[2018-07-03] MEDS: ACETAMINOPHEN 325 MG TABLET PO PRN (01:14)
[2018-07-03] MEDS: SODIUM CHLORIDE 0.9% 1,000 ML IV SCH ×2 (05:57→18:43)
[2018-07-03] MEDS: buPROPion SR 100 MG TABLET PO SCH ×2 (06:06→14:28)
[2018-07-03] MEDS: LEVOTHYROXINE 75 MCG TABLET PO SCH (06:06)
[2018-07-03] MEDS: oxyCODONE 5 MG TABLET PO PRN ×3 (06:06→21:25)
[2018-07-03] MEDS: FAMOTIDINE 20 MG/50 ML 50 ML IV SCH (09:18)
--- NOTE | 2018-07-03 11:00 | PROVIDER PROGRESS NOTE ---
Subjective - Prog Note Date Prog Note Date: 07/03/18 Prog Note Time: 11:02 - Subjective Pt reports feeling: No change Subjective: We are waiting for the hardware to arrive today. Surgery will be tomorrow. The plan is for the wrist and the need to be operated on. She is a right-handed dominant patient. Is on full disability and 100% service- connected with the [employer]. However she prefers to use her Medicare benefit. She is asking for home health aides. Current Medications - Current Medications Current Medications: Active Medications Acetaminophen (Tylenol) 650 mg PO Q4HR PRN PRN Reason: Pain 1 to 4 Last Admin: 07/03/18 01:14 Dose: 650 mg Bupropion HCl (Wellbutrin Sr) 200 mg PO 0600,1500 [facility] Last Admin: 07/03/18 06:06 Dose: 200 mg Buspirone HCl (Buspar) 30 mg PO QPM [facility] Last Admin: 07/02/18 20:57 Dose: 30 mg Famotidine (Pepcid 20 Mg/50 Ml) 50 mls @ 100 mls/hr IV DAILY [facility] Last Infusion: 07/03/18 10:49 Dose: Infused Sodium Chloride (Normal Saline 0.9%) 1,000 mls @ 83.333 mls/hr IV .Q12H [facility] Last Admin: 07/03/18 05:57 Dose: 83.333 mls/hr Levothyroxine Sodium (Synthroid) 75 mcg PO QDAC [facility] Last Admin: 07/03/18 06:06 Dose: 75 mcg Lorazepam (Ativan) 1 mg PO DAILY PRN PRN Reason: Anxiety Last Admin: 07/02/18 08:21 Dose: 1 mg Non-Formulary Medication (Clomipramine Hcl [Clomipramine Hcl]) 200 mg PO QPM [facility] Last Admin: 07/02/18 20:57 Dose: 200 mg Ondansetron HCl (Zofran Inj) 4 mg IVP Q6HR PRN PRN Reason: Nausea / Vomiting Oxycodone HCl (Roxicodone) 10 mg PO Q4HR PRN PRN Reason: Pain 8 to 10 Last Admin: 07/03/18 10:12 Dose: 10 mg (Amphetamine Sulfate (20 Mg) Tab) 1 each PO QPM [facility] Stop: 07/03/18 21:01 Last Admin: 07/02/18 21:07 Dose: 1 each Polyethylene Glycol (Miralax) 17 gm PO DAILY [facility] Last Admin: 07/02/18 16:59 Dose: 17 gm Prochlorperazine Edisylate (Compazine Inj) 10 mg IVP Q6HR PRN PRN Reason: Nausea / Vomiting Quetiapine Fumarate (Seroquel) 400 mg PO QPM [facility] Last Admin: 07/02/18 20:57 Dose: 400 mg Sodium Chloride (Normal Saline Flush 0.9%) 10 ml IVP PRN PRN PRN Reason: NEEDED PER PROVIDER ORDERS Last Admin: 07/02/18 05:42 Dose: 10 ml Sodium Chloride (Normal Saline Flush 0.9%) 10 ml IVP 0100,0900,1700 [facility] Last Admin: 07/03/18 09:18 Dose: Not Given Temazepam (Restoril) 15 mg PO QPM PRN PRN Reason: Insomnia Last Admin: 07/01/18 22:25 Dose: 15 mg Buspirone HCl 30 mg PO QPM 07/14/17 Levothyroxine Sodium 75 mcg PO QDAC 07/14/17 Lorazepam [Ativan] 1 mg PO DAILY PRN 07/14/17 Quetiapine Fumarate [Seroquel] 400 mg PO DAILY PM 07/14/17 buPROPion HCl [Bupropion HCl Sr] 200 mg PO 0600,1500 07/14/17 Amphetamine Sulfate [Evekeo] 20 mg PO QPMX3D 07/01/18 Clomipramine HCl 200 mg PO QPM 07/01/18 Calcium Carbonate [Antacid] 400 mg PO BID 07/02/18 Polyethylene Glycol 3350 [Miralax] 17 gm PO Q3D 07/02/18 Objective - Vital Signs/Intake & Output Reviewed Vital Signs: Yes Vital Signs: Vital Signs x48h Temp Pulse Resp BP Pulse Ox 07/03/18 08:00 37.1 C 89 16 114/65 97 Intake & Output: Intake & Output 06/30/18 07/01/18 07/02/18 07/03/18 23:59 23:59 23:59 23:59 Intake Total 700 2440 1712.218 Output Total 2150 1200 Balance 700 290 512.218 - Objective General Appearance: positive: No acute distress, Alert, Other (Thin white female who looks her stated age, vivacious personality, is using her left hand to eat her breakfast of scrambled eggs and bravo.) Eyes Bilateral: positive: PERRL, EOMI ENT: positive: Pharynx nml Neck: positive: No JVD. negative: Stiff neck, Carotid bruit Respiratory: positive: Chest non-tender. negative: Wheezes, Rales, Rhonchi Cardiovascular: positive: Regular rate & rhythm, No murmur. negative: Gallop/S4, Friction rub Abdomen: positive: Non-tender, No organomegaly, Nml bowel sounds, No distention Skin: positive: No rash, Warm, Dry Extremities: positive: No pedal edema, Other (Right arm from elbow down to the hand is in a soft brace with Dereck wrap surrounding that. Fingertips are pink, mobile.) Neurologic/Psychiatric: positive: Oriented x3, CN's nml (2-12), Motor nml - Lab Results Fish Bones: 07/01/18 16:45 07/01/18 16:45 ABX Reporting Has patient been on IV antibiotics over the past 48 hours?: No Assessment/Plan - Problem List (1) Falls frequently Impression: Chronic problem, not acute syncope. Has had some outpt w/u, but not with neurology. Likely 2/2 polypharmacy with varios psych meds. Cont to monitor, but no reversible metabolic sources identified up to this point on this admission. I have asked case management to speak to the patient about her benefits under versus Medicare. She needs education on what she is qualified for in the home. The patient expresses fears regarding her home stay because her has his own "health issues" and may not be able to help take care of her. (2) Left patella fracture Impression: D/W Dr Morin at bedside 07/02 Will need fixation, pending availability of hardware needed for [place] have to be ordered. Surgery is tomorrow. Her revised cardiac index is 0 points, class I risk, 0.4% risk of major cardiac event. Qualifiers: Encounter type: initial encounter Fracture type: closed Fracture morpho logy: comminuted Fracture alignment: displaced Qualified Code(s): S82.042A - Displaced comminuted fracture of left patella, initial encounter for closed fracture (3) Right wrist fracture Impression: Impacted articular fracture of radial metaphysis. Ortho currently decided on operative vs non-operative tx. Not going to OR today bc no hardware available, will need prolonged OR time. Meanwhile, pain controlled with current pain meds, cont splint. Qualifiers: Encounter type: initial encounter Fracture type: closed Qualified Code(s): S62.101A - Fracture of unspecified carpal bone, right wrist, initial en counter for closed fracture (4) Psychiatric disorder Impression: Per pt, pt has multiple pscyh problems including bipolar, OCD, PTSD. Unclear extend of true diagosis. Pt states she recently "fired" her psychiatrist. For now, cont home meds. These may need to be adjusted outpt, but will need to be weaned.
--- NOTE | 2018-07-03 15:59 | PROVIDER PROGRESS NOTE ---
Subjective - Prog Note Date Prog Note Date: 07/03/18 - Subjective Pt reports feeling: No change (pt seen with Jg at bedside. She says she is approximately the same with regards to her right wrist and left knee.) Objective - Vital Signs/Intake & Output Vital Signs: Vital Signs x48h Temp Pulse Resp BP Pulse Ox 07/03/18 15:44 37.1 C 90 18 108/63 97 07/03/18 08:00 37.1 C 89 16 114/65 97 Intake & Output: Intake & Output 06/30/18 07/01/18 07/02/18 07/03/18 23:59 23:59 23:59 23:59 Intake Total 700 2440 2222.218 Output Total 2150 1200 Balance 295 212 7978.218 - Lab Results Fish Bones: 07/01/18 16:45 07/01/18 16:45 - Other Results/Comments Other Results/Comments: Patient's right upper extremity remains neurovascular unchanged distally left lower extremity remains neurovascular grossly unchanged distally. Skin edges around the right wrist splint intact. She is able to move her digits. Patient's left knee shows significant swelling but skin prepatellar is intact. Assessment/Plan - Problem List (1) Left patella fracture Impression: patient unchanged regarding right comminuted intraarticular distal radius fracture and left comminuted intraarticular patella fracture. discussed r/b/a of op and non op with patient again and with Jg. questions answered. reviewed dc planning and recommended rehab/snf given multi trauma and patient nor spouse not able to care for patient. they have interest in home nursing and will see if this is an option, though I have emphasized the concern for safety and need for 24hr help. A snf/rehab facility would also allow for PT opportunities. Plan for dc if post-op stable, on 07/05. reviewed with pt and . continue with plan for right distal radius orif with brachioradialis tenotomy and left patella orif tomorrow. npo past midnight. Qualifiers: Encounter type: subsequent encounter Fracture type: closed Fracture morphology: comminuted Fracture alignment: displaced (2) Right wrist fracture Qualifiers: Encounter type: subsequent encounter Fracture type: closed
[2018-07-03] MEDS: CLOMIPRAMINE HCL 200 MG PO SCH (21:29)
[2018-07-03] MEDS: busPIRone 5 MG TABLET PO SCH (21:29)
[2018-07-03] MEDS: QUEtiapine 100 MG TABLET PO SCH (21:29)
[2018-07-04] MEDS: SODIUM CHLORIDE FLUSH 0.9% 10 ML SYRINGE IVP SCH ×3 (01:38→16:34)
[2018-07-04] MEDS: buPROPion SR 100 MG TABLET PO SCH ×2 (06:17→14:17)
[2018-07-04] MEDS: oxyCODONE 5 MG TABLET PO PRN ×2 (06:18→16:32)
[2018-07-04] MEDS: LEVOTHYROXINE 75 MCG TABLET PO SCH (06:18)
[2018-07-04] MEDS ORDERED: BUPIVACAINE 0.25% PF 30 ML VIAL ONE (06:56)
[2018-07-04] MEDS ORDERED: BUPIVACAINE 0.5% PF 30 ML VIAL ONE (06:57)
--- NOTE | 2018-07-04 07:16 | ANESTHESIA ---
Pre-Anesthesia VS, & Labs - Diagnosis Diagnosis Comminuted intra-articular right distal radius fracture and left comminuted intra-articular patella fracture - Procedure left patella ORID, right radius ORIF Vital Signs: Temp Pulse Resp BP Pulse Ox 37.3 C 97 18 130/75 98 07/03/18 23:35 07/03/18 23:35 07/03/18 23:35 07/03/18 23:35 07/03/18 23:35 Height 5 ft Weight (kg) 60 kg Body Mass Index 25.4 - NPO >8 hours (except meds with sip at 6am) - Is Patient ?: Not Applicable - Lab Results Current Lab Results: Laboratory Tests 07/01/18 16:45: Sodium 140, Potassium 4.0, Chloride 101, Carbon Dioxide 29, Anion Gap 10.0, BUN 19, Creatinine 1.0, Estimated GFR (MDRD) 55 L, Glucose 98, Calcium 9.0, Total Bilirubin 0.3, AST 27, ALT 35, Alkaline Phosphatase 62, Total Protein 5.8 L, Albumin 4.1, Globulin 1.7 L, Albumin/Globulin Ratio 2.4 H, Lipase 43 07/01/18 16:45: PT 13.4 H, INR 1.2 07/01/18 16:45: WBC 5.6, RBC 4.04 L, Hgb 13.3, Hct 38.9, MCV 96.1, MCH 32.9 H, MCHC 34.2, RDW 13.7, Plt Count 110 L, MPV 7.6 L, Neut # (Auto) 3.8, Lymph # (Auto) 1.2 L, [place] # (Auto) 0.5, Eos # (Auto) 0.1, Baso # (Auto) 0.0, Absolute Nucleated RBC 0.00, Nucleated RBC % 0.0 Lab results reviewed: Yes Fish Bones: 07/01/18 16:45 07/01/18 16:45 Home Medications and Allergies Home Medications: Ambulatory Orders Amphetamine Sulfate [Evekeo] 20 mg PO QPMX3D 07/01/18 Clomipramine HCl 200 mg PO QPM 07/01/18 Calcium Carbonate [Antacid] 400 mg PO BID 07/02/18 Polyethylene Glycol 3350 [Miralax] 17 gm PO Q3D 07/02/18 Active Medications Acetaminophen (Tylenol) 650 mg PO Q4HR PRN PRN Reason: Pain 1 to 4 Last Admin: 07/03/18 01:14 Dose: 650 mg Bupropion HCl (Wellbutrin Sr) 200 mg PO 0600,1500 [facility] Last Admin: 07/04/18 06:17 Dose: 200 mg Buspirone HCl (Buspar) 30 mg PO QPM [facility] Last Admin: 07/03/18 21:29 Dose: 30 mg Famotidine (Pepcid 20 Mg/50 Ml) 50 mls @ 100 mls/hr IV DAILY [facility] Last Infusion: 07/03/18 10:49 Dose: Infused Sodium Chloride (Normal Saline 0.9%) 1,000 mls @ 83.333 mls/hr IV .Q12H [facility] Last Infusion: 07/04/18 07:04 Dose: Infused Levothyroxine Sodium (Synthroid) 75 mcg PO QDAC [facility] Last Admin: 07/04/18 06:18 Dose: 75 mcg Lorazepam (Ativan) 1 mg PO DAILY PRN PRN Reason: Anxiety Last Admin: 07/02/18 08:21 Dose: 1 mg Non-Formulary Medication (Clomipramine Hcl [Clomipramine Hcl]) 200 mg PO QPM [facility] Last Admin: 07/03/18 21:29 Dose: 200 mg Ondansetron HCl (Zofran Inj) 4 mg IVP Q6HR PRN PRN Reason: Nausea / Vomiting Oxycodone HCl (Roxicodone) 10 mg PO Q4HR PRN PRN Reason: Pain 8 to 10 Last Admin: 07/04/18 06:18 Dose: 10 mg (Amphetamine Sulfate (20 Mg) Tab) 1 each PO DAILY [facility] Stop: 07/05/18 09:01 Polyethylene Glycol (Miralax) 17 gm PO DAILY [facility] Last Admin: 07/02/18 16:59 Dose: 17 gm Prochlorperazine Edisylate (Compazine Inj) 10 mg IVP Q6HR PRN PRN Reason: Nausea / Vomiting Quetiapine Fumarate (Seroquel) 400 mg PO QPM [facility] Last Admin: 07/03/18 21:29 Dose: 400 mg Sodium Chloride (Normal Saline Flush 0.9%) 10 ml IVP PRN PRN PRN Reason: NEEDED PER PROVIDER ORDERS Last Admin: 07/02/18 05:42 Dose: 10 ml Sodium Chloride (Normal Saline Flush 0.9%) 10 ml IVP 0100,0900,1700 LISA Last Admin: 07/04/18 01:38 Dose: Not Given Temazepam (Restoril) 15 mg PO QPM PRN PRN Reason: Insomnia Last Admin: 07/01/18 22:25 Dose: 15 mg Buspirone HCl 30 mg PO QPM 07/14/17 Levothyroxine Sodium 75 mcg PO QDAC 07/14/17 Lorazepam [Ativan] 1 mg PO DAILY PRN 07/14/17 Quetiapine Fumarate [Seroquel] 400 mg PO DAILY PM 07/14/17 buPROPion HCl [Bupropion HCl Sr] 200 mg PO 0600,1500 07/14/17 Amphetamine Sulfate [Evekeo] 20 mg PO QPMX3D 07/01/18 Clomipramine HCl 200 mg PO QPM 07/01/18 Calcium Carbonate [Antacid] 400 mg PO BID 07/02/18 Polyethylene Glycol 3350 [Miralax] 17 gm PO Q3D 07/02/18 Allergies/Adverse Reactions: Allergies Allergy/AdvReac Type Severity Reaction Status Date / Time tetracycline Allergy Unknown Verified 06/29/17 15:38 Anes History & Medical History - Anesthetic History Anesthesia Complications: reports: No previous complications - Medical History Cardiovascular: reports: High cholesterol, Atrial fibrillation Pulmonary: reports: Pneumonia Gastrointestinal: reports: Chronic diarrhea, Chronic constipation, Hemorrhoids Urinary: reports: Incontinence, Nocturia, Frequency Neuro: reports: Headaches, Seizure disorder, Other (recurrent falls, was scheduled to see neurologist) Musculoskeletal: reports: None Endocrine/Autoimmune: reports: HyPOthyroidism Blood Disorders: reports: None Skin: reports: None Smoking Status: Never smoker Psychosocial: reports: Other (bipolar) Other Past Medical History: possible seizures, loss of balance with frequent falls (unaware of falling). Difficulty with word finding. T-11 fracture - Surgical History General: 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, Other Gynecologic: Hysterectomy, Oophrectomy, Other Exam General: Alert Dental: WNL Mouth Openin Fingerbreadth Mallampati classification: II Thyromental Distance: 4-6 cm Respiratory: Lungs clear Cardiovascular: Regular rate Mental/Cognitive Status: Alert/Oriented X3 Plan Anesthesia Type: General, Supraclavicular Block (if needed in PACU) Consent for Procedure(s) Verified and Reviewed: Yes Code Status: Attempt Resuscitation ASA classification: 2-Mild systemic disease Is this case an emergency?: No
--- NOTE | 2018-07-04 07:29 | PROVIDER PROGRESS NOTE ---
Objective - Vital Signs/Intake & Output Vital Signs: Vital Signs x48h Temp Pulse Resp BP Pulse Ox 07/03/18 23:35 37.3 C 97 18 130/75 98 Intake & Output: Intake & Output 07/01/18 07/02/18 07/03/18 07/04/18 23:59 23:59 23:59 23:59 Intake Total 700 2440 3858.218 1000 Output Total 2150 2500 500 Balance 191 675 7333.218 500 - Lab Results Fish Bones: 07/01/18 16:45 07/01/18 16:45 Assessment/Plan - Problem List (1) Left patella fracture Impression: Patient with right intra-articular comminuted displaced distal radius fracture and left displaced comminuted intra-articular left patella fracture. Patient was seen and examined this morning. Consent and risk benefits alternatives again reviewed. Will continue with plan for open reduction internal fixation right distal radius fracture with possible brachioradialis tenotomy. We will continue with plans for left patella open reduction internal fixation. Qualifiers: Encounter type: subsequent encounter Fracture type: closed Fracture morphology: comminuted Fracture alignment: displaced (2) Right wrist fracture Qualifiers: Encounter type: subsequent encounter Fracture type: closed
[2018-07-04] MEDS ORDERED: ceFAZolin 2 GM/50 ML 2 GM/50 ML BAG IV ONE (07:46)
[2018-07-04] MEDS ORDERED: BUPIVACAINE 0.25%-EPI 1:200000 PF 30 ML VIAL ONE (07:59)
[2018-07-04] MEDS ORDERED: BUPIVACAINE 0.25%-EPI 1:200000 PF 10 ML VIAL SUBQ ONE (08:20)
[2018-07-04] MEDS ORDERED: BUPIVACAINE 0.25% PF 30 ML VIAL SUBQ ONE (08:20)
[2018-07-04] MEDS ORDERED: LACTATED RINGERS 1,000 ML IV ONE ×2 (08:21→10:00)
--- NOTE | 2018-07-04 08:36 | PROVIDER PROGRESS NOTE ---
Subjective - Prog Note Date Prog Note Date: 07/04/18 Prog Note Time: 19:17 - Subjective Pt reports feeling: No change Subjective: She went to the operating room this morning. So far is tolerated everything well. Current Medications - Current Medications Current Medications: Active Medications Acetaminophen (Tylenol) 650 mg PO Q4HR PRN PRN Reason: Pain 1 to 4 Bupropion HCl (Wellbutrin Sr) 200 mg PO 0600,1500 ON LICENSE OF [facility] Last Admin: 07/04/18 14:17 Dose: 200 mg Buspirone HCl (Buspar) 30 mg PO QPM LISA Last Admin: 07/03/18 21:29 Dose: 30 mg Calcium Citrate () 250 mg PO BID ON LICENSE OF [facility] Last Admin: 07/04/18 16:33 Dose: 250 mg Cholecalciferol (Vitamin D3) 2,000 unit PO DAILY ON LICENSE OF [facility] Last Admin: 07/04/18 16:33 Dose: 2,000 unit Famotidine (Pepcid 20 Mg/50 Ml) 50 mls @ 100 mls/hr IV DAILY ON LICENSE OF [facility] Last Infusion: 07/04/18 15:10 Dose: Infused Sodium Chloride (Normal Saline 0.9%) 1,000 mls @ 83.333 mls/hr IV .Q12H ON LICENSE OF [facility] Last Admin: 07/04/18 14:18 Dose: 83.3 mls/hr Cefazolin Sodium/Dextrose (Ancef 2 Gm/50 Ml) 2 gm in 50 mls @ 100 mls/hr IV Q8H ON LICENSE OF [facility] Last Infusion: 07/04/18 17:59 Dose: Infused Levothyroxine Sodium (Synthroid) 75 mcg PO QDAC ON LICENSE OF [facility] Last Admin: 07/04/18 06:18 Dose: 75 mcg Lorazepam (Ativan) 1 mg PO DAILY PRN PRN Reason: Anxiety Last Admin: 07/02/18 08:21 Dose: 1 mg Morphine Sulfate (Morphine (Carpuject)) 1 - 2 mg IVP Q3HR PRN PRN Reason: PAIN Last Admin: 07/04/18 18:28 Dose: 2 mg Non-Formulary Medication (Clomipramine Hcl [Clomipramine Hcl]) 200 mg PO QPM LISA Last Admin: 07/03/18 21:29 Dose: 200 mg Ondansetron HCl (Zofran Inj) 4 mg IVP Q6HR PRN PRN Reason: Nausea / Vomiting Oxycodone HCl (Roxicodone) 10 mg PO Q4HR PRN PRN Reason: Pain 8 to 10 Last Admin: 07/04/18 16:32 Dose: 10 mg Oxycodone HCl (Roxicodone) 5 mg PO Q4HR PRN PRN Reason: Pain 5 to 7 (Amphetamine Sulfate (20 Mg) Tab) 1 each PO DAILY ON LICENSE OF [facility] Stop: 07/05/18 09:01 Last Admin: 07/04/18 14:18 Dose: 1 each Polyethylene Glycol (Miralax) 17 gm PO DAILY ON LICENSE OF [facility] Prochlorperazine Edisylate (Compazine Inj) 10 mg IVP Q6HR PRN PRN Reason: Nausea / Vomiting Quetiapine Fumarate (Seroquel) 400 mg PO QPM ON LICENSE OF [facility] Last Admin: 07/03/18 21:29 Dose: 400 mg Saccharomyces Boulardii (Florastor) 250 mg PO BIDWM ON LICENSE OF [facility] Last Admin: 07/04/18 16:33 Dose: 250 mg Sodium Chloride (Normal Saline Flush 0.9%) 10 ml IVP PRN PRN PRN Reason: NEEDED PER PROVIDER ORDERS Last Admin: 07/02/18 05:42 Dose: 10 ml Sodium Chloride (Normal Saline Flush 0.9%) 10 ml IVP 0100,0900,1700 ON LICENSE OF [facility] Last Admin: 07/04/18 16:34 Dose: Not Given Temazepam (Restoril) 15 mg PO QPM PRN PRN Reason: Insomnia Last Admin: 07/01/18 22:25 Dose: 15 mg Throat Lozenges (Cepacol) 1 lozenge MM Q2HR PRN PRN Reason: Throat pain Last Admin: 07/04/18 14:19 Dose: 1 lozenge Buspirone HCl 30 mg PO QPM 07/14/17 Levothyroxine Sodium 75 mcg PO QDAC 07/14/17 Lorazepam [Ativan] 1 mg PO DAILY PRN 07/14/17 Quetiapine Fumarate [Seroquel] 400 mg PO DAILY PM 07/14/17 buPROPion HCl [Bupropion HCl Sr] 200 mg PO 0600,1500 07/14/17 Amphetamine Sulfate [Evekeo] 20 mg PO QPMX3D 07/01/18 Clomipramine HCl 200 mg PO QPM 07/01/18 Calcium Carbonate [Antacid] 400 mg PO BID 10/29/18 Polyethylene Glycol 3350 [Miralax] 17 gm PO Q3D 07/02/18 Objective - Vital Signs/Intake & Output Reviewed Vital Signs: Yes Intake & Output: Intake & Output 07/01/18 07/02/18 07/03/18 07/04/18 23:59 23:59 23:59 23:59 Intake Total 700 2440 3858.218 1000 Output Total 2150 2500 500 Balance 453 419 0249.218 500 - Objective General Appearance: positive: No acute distress, Alert Eyes Bilateral: positive: PERRL, EOMI ENT: positive: Pharynx nml Neck: positive: No JVD. negative: Carotid bruit Respiratory: positive: Chest non-tender. negative: Wheezes, Rales, Rhonchi Cardiovascular: positive: Regular rate & rhythm. negative: Gallop/S4, Friction rub Abdomen: positive: Non-tender, No organomegaly, Nml bowel sounds, No distention Skin: positive: Warm, Dry Neurologic/Psychiatric: positive: Oriented x3, CN's nml (2-12), Motor nml - Lab Results Fish Bones: 07/01/18 16:45 07/01/18 16:45 ABX Reporting Has patient been on IV antibiotics over the past 48 hours?: No Assessment/Plan - Problem List (1) Left patella fracture Impression: D/W Dr Morin at bedside 07/02 Will need fixation, pending availability of hardware needed for surgery - [place] and will have to be ordered. Surgery was today. POD #0 for open reduction internal fixation right distal radius fracture with possible brachioradialis tenotomy as well as left patella open reduction internal fixation. Her revised cardiac index is 0 points, class I risk, 0.4% risk of major cardiac event. Qualifiers: Encounter type: initial encounter Fracture type: closed Fracture morphology: comminuted Fracture alignment: displaced Qualified Code(s): S82.042A - Displaced comminuted fracture of left patella, initial encounter for closed fracture (2) Right wrist fracture Impression: Impacted articular fracture of radial metaphysis. Ortho currently decided on operative vs non-operative tx. Did not go to OR yesterday bc no hardware available, will need prolonged OR time. Meanwhile, pain controlled with current pain meds, cont splint. Surgery was today. POD #0 Qualifiers: Encounter type: initial encounter Fracture type: closed Qualified Code(s): S62.101A - Fracture of unspecified carpal bone, right wrist, initial encounter for closed fracture (3) Psychiatric disorder Impression: Per pt, pt has multiple pscyh problems including bipolar, OCD, PTSD. Unclear extend of true diagosis. Pt states she recently "fired" her psychiatrist. For now, cont home meds. These may need to be adjusted outpt, but will need to be weaned. (5) Falls frequently Impression: Chronic problem, not acute syncope. Has had some outpt w/u, but not with neurology. Likely 2/2 polypharmacy with varios psych meds. Cont to monitor, but no reversible metabolic sources identified up to this point on this admission. I have asked case management to speak to the patient about her benefits under versus Medicare. She needs education on what she is qualified for in the home. The patient expresses fears regarding her home stay because her has his own "health issues" and may not be able to help take care of her. Case management did see her: I went and talked to the patient she said that she could use [facility] for [facility] out patient care and wanted to do that so called the [facility] talked to Deepthi who said they might pay for an aid at home. care manage needs to follow up with [facility] tomorrow Deepthi said to call the clinical social work aide at and talk to Shweta Dupree and she can help set up an aid for home message left for care manger to follow up on tomorrow.
[2018-07-04] MEDS ORDERED: ROPIVACAINE 0.5% PF 20 ML AMPULE ONE (09:12)
--- NOTE | 2018-07-04 11:37 | XRAY Report ---
Reason: ORIF PATELLA Procedure Date: 07/04/2018 Accession Number: [id number] / [id number] Procedure: [place] - OR C-Arm Procedure CPT Code: FULL RESULT: EXAM: FLUOROSCOPIC GUIDANCE EXAM DATE: 07/04/2018 09:24 AM. CLINICAL HISTORY: ORIF patella. COMPARISON: None. FINDINGS: Images demonstrate a patellar tension band construct. IMPRESSION: Fluoroscopic guidance provided for orthopedic procedure. Total fluoroscopy time: 0.3 minutes. Number of images: 3. RADIA
[2018-07-04] MEDS ORDERED: SENNA 8.6 MG TABLET PO SCH (12:00)
[2018-07-04] MEDS ORDERED: DOCUSATE SODIUM 250 MG CAPSULE PO SCH (12:00)
[2018-07-04] MEDS ORDERED: oxyCODONE 5 MG TABLET PO PRN (12:21)
[2018-07-04] MEDS ORDERED: ACETAMINOPHEN 325 MG TABLET PO PRN (12:21)
--- NOTE | 2018-07-04 12:21 | IMMEDIATE POSTOPERATIVE NOTE ---
Immediate Postoperative Note - Procedure Note Procedure Date: 07/04/18 Pre-Op Diagnosis: RIGHT DISTAL RADIUS FRACTURE, LEFT PATELLA FRACTURE Procedure: ORIF RIGHT DISTAL RADIUS, ORIF LEFT PATELLA Post-Op Diagnosis: SAME Primary Surgeon: VIANEY Pleater Hand: NONE Anesthesia Type: General LMA, Local, Regional block Complications: No complications Plan of Care: NWB RUE AND LLE, CONTINUE MEDICAL CARE, KEEP DRESSING CLEAN DRY INTACT. PLAN FOR SNF/REHAB TOMORROW
[2018-07-04] MEDS: ceFAZolin 2 GM/50 ML 2 GM/50 ML BAG IV SCH ×2 (13:11→16:33)
[2018-07-04] MEDS: SODIUM CHLORIDE 0.9% 1,000 ML IV SCH ×2 (14:18→20:09)
[2018-07-04] MEDS: FAMOTIDINE 20 MG/50 ML 50 ML IV SCH (14:18)
[2018-07-04] MEDS: AMPHETAMINE SULFATE PO SCH (14:18)
[2018-07-04] MEDS: BENZOCAINE/MENTHOL LOZENGE MM PRN (14:19)
[2018-07-04] MEDS: CHOLECALCIFEROL 1,000 UNIT TABLET PO SCH (16:33)
[2018-07-04] MEDS: CALCIUM CITRATE 250 MG TABLET PO SCH ×2 (16:33→20:58)
[2018-07-04] MEDS: SACCHAROMYCES BOULARDII 250 MG CAPSULE PO SCH (16:33)
[2018-07-04] MEDS: MORPHINE 2 MG/ML CARPUJECT IVP PRN ×2 (18:28→22:23)
[2018-07-04] MEDS: LORazepam 2 MG/ML VIAL IVP PRN ×2 (20:25→22:22)
[2018-07-04] MEDS: busPIRone 5 MG TABLET PO SCH (20:57)
[2018-07-04] MEDS: QUEtiapine 100 MG TABLET PO SCH (20:58)
[2018-07-04] MEDS: CLOMIPRAMINE HCL 200 MG PO SCH (21:00)
[2018-07-05] MEDS: LORazepam 2 MG/ML VIAL IVP PRN ×6 (00:24→23:32)
[2018-07-05] MEDS: SODIUM CHLORIDE FLUSH 0.9% 10 ML SYRINGE IVP SCH ×3 (00:24→18:21)
[2018-07-05] MEDS: ceFAZolin 2 GM/50 ML 2 GM/50 ML BAG IV SCH ×3 (00:25→18:18)
[2018-07-05] MEDS: oxyCODONE 5 MG TABLET PO PRN ×5 (00:25→20:09)
[2018-07-05] MEDS ORDERED: ACETAMINOPHEN 325 MG TABLET PO PRN (00:45)
--- NOTE | 2018-07-05 00:57 | XRAY Report ---
Reason: SOB and fever Procedure Date: 07/05/2018 Accession Number: [id number] / [id number] Procedure: XR - Chest 1 View X-Ray CPT Code: 79618 FULL RESULT: EXAM: CHEST RADIOGRAPHY EXAM DATE: 07/05/2018 12:47 AM. CLINICAL HISTORY: Shortness of breath and fever after knee surgery. COMPARISON: CHEST 1 VIEW 06/29/2017 4:19 PM. TECHNIQUE: 1 view. FINDINGS: Lungs/Pleura: Small lung volumes. Possible pulmonary vascular congestion. Mild bibasilar atelectasis or infiltrate. No pleural effusion. No pneumothorax. Mediastinum: Within exam limitations, the cardiomediastinal contour is normal. Other: None. IMPRESSION: 1. Small lung volumes with mild bibasilar atelectasis or infiltrate. 2. Possible mild pulmonary vascular congestion. RADIA
[2018-07-05 01:17] LABS: ALBUMIN/GLOBULIN RATIO 1.5 (1.0-2.2); ALKALINE PHOSPHATASE 46 IU/L (42-121); ALT ALANINE AMINOTRANSFERASE 27 IU/L (10-60); AST ASPARTATE AMINOTRANSFERASE 30 IU/L (10-42); BILIRUBIN,TOTAL 0.4 mg/dL (0.2-1.0); BUN - BLOOD UREA NITROGEN 13 mg/dL (6-20); CALCIUM 7.2 mg/dL (8.5-10.3); CARBON DIOXIDE - CO2 21 mmol/L (21-32); CHLORIDE 105 mmol/L (101-111); CREATININE 0.6 mg/dL (0.4-1.0); GFR - MDRD 100 (>89); GLUCOSE 132 mg/dL (70-100); SODIUM 135 mmol/L (135-145)
[2018-07-05 01:28] LABS: BILIRUBIN,URINE NEGATIVE (NEGATIVE); GLUCOSE, URINE (UA) NEGATIVE (NEGATIVE); KETONES,URINE (UA) NEGATIVE (NEGATIVE); LEUKOCYTE ESTERASE, URINE NEGATIVE (NEGATIVE); NITRITE,URINE NEGATIVE (NEGATIVE); OCCULT BLOOD,URINE SMALL (NEGATIVE); PH,URINE 7.5 PH (5.0-7.5); PROTEIN,URINE NEGATIVE (NEGATIVE); UROBILINOGEN,URINE 0.2 (NORMAL) E.U./dL (NORMAL)
[2018-07-05 01:37] LABS: BASOPHILS # (AUTO) 0.1 10^3/uL (0.0-0.1); BASOPHILS % (AUTO) 0.8 %; HGB - HEMOGLOBIN 9.9 g/dL (12.0-16.0); LYMPHOCYTES # (AUTO) 0.8 10^3/uL (1.5-3.5); LYMPHOCYTES % (AUTO) 10.4 %; MEAN CORPUSCULAR HEMOGLOBIN 33.1 pg (27.0-31.0); MEAN CORPUSCULAR HGB CONC 33.8 g/dL (32.0-36.0); MEAN CORPUSCULAR VOLUME 97.8 fL (81.0-99.0); MEAN PLATELET VOLUME 8.2 fL (7.9-10.8); MONOCYTES % (AUTO) 12.3 %; NEUTROPHILS # (AUTO) 6.2 10^3/uL (1.5-6.6); NEUTROPHILS % (AUTO) 76.5 %; PLT - PLATELET COUNT 99 10^3/uL (130-450); RED BLOOD COUNT 2.99 10^6/uL (4.20-5.40); RED CELL DISTRIBUTION WIDTH 13.7 % (12.0-15.0); WHITE BLOOD COUNT 8.1 x10^3/uL (4.8-10.8)
[2018-07-05 01:39] LABS: BACTERIA,URINE Rare /HPF (None Seen); CLARITY,URINE CLEAR (CLEAR); SQUAMOUS EPITHELIAL CELL,UR RARE Squamous (<= Few)
[2018-07-05 02:06] LABS: VBG PH 7.415 (7.31-7.41)
[2018-07-05] MEDS: SODIUM CHLORIDE 0.9% 1,000 ML IV SCH ×2 (03:05→18:18)
[2018-07-05] MEDS: buPROPion SR 100 MG TABLET PO SCH ×2 (05:23→14:00)
[2018-07-05] MEDS: LEVOTHYROXINE 75 MCG TABLET PO SCH (05:24)
--- NOTE | 2018-07-05 07:42 | PROVIDER PROGRESS NOTE ---
Subjective - Prog Note Date Prog Note Date: 07/05/18 - Subjective Subjective: Nika is seen and examined while in her hospital room. She is somnolent but arousable and somewhat cooperative with physical examination.She does not indicate any pain at this time. Objective - Vital Signs/Intake & Output Vital Signs: Vital Signs x48h Temp Pulse Resp BP Pulse Ox 07/05/18 04:30 37.8 C H 98 20 126/69 92 07/05/18 01:39 38.1 C H 07/04/18 23:58 39.1 C H 102 H 18 117/85 H 92 Intake & Output: Intake & Output 07/02/18 07/03/18 07/04/18 07/05/18 23:59 23:59 23:59 23:59 Intake Total 2440 3858.218 1600 1050.000 Output Total 2150 2500 2100 225 Balance 290 1358.218 -500 825.000 - Lab Results Fish Bones: 07/05/18 00:50 07/05/18 00:50 Other Labs: Lab Results x24hrs 07/05/18 07/05/18 07/05/18 Range/Units 02:00 01:15 00:50 WBC 8.1 (4.8-10.8) x10^3/uL RBC 2.99 L (4.20-5.40) 10^6/uL Hgb 9.9 L (12.0-16.0) g/dL Hct 29.3 L (37.0-47.0) % MCV 97.8 (81.0-99.0) fL MCH 33.1 H (27.0-31.0) pg MCHC 33.8 (32.0-36.0) g/dL RDW 13.7 (12.0-15.0) % Plt Count 99 L (130-450) 10^3/uL MPV 8.2 (7.9-10.8) fL Neut # (Auto) 6.2 (1.5-6.6) 10^3/uL Lymph # (Auto) 0.8 L (1.5-3.5) 10^3/uL [place] # (Auto) 1.0 (0.0-1.0) 10^3/uL Eos # (Auto) 0.0 (0.0-0.7) 10^3/uL Baso # (Auto) 0.1 (0.0-0.1) 10^3/uL Absolute Nucleated RBC 0.00 x10^3/uL Nucleated RBC % 0.0 /100WBC VBG pH 7.415 H (7.31-7.41) Sodium (135-145) mmol/L Potassium (3.5-5.0) mmol/L Chloride (101-111) mmol/L Carbon Dioxide (21-32) mmol/L Anion Gap (6-13) BUN (6-20) mg/dL Creatinine (0.4-1.0) mg/dL Estimated GFR (MDRD) (>89) Glucose (70-100) mg/dL Lactic Acid (0.5-2.2) mmol/L Calcium (8.5-10.3) mg/dL Ionized Calcium 0.97 L Total Bilirubin (0.2-1.0) mg/dL AST (10-42) IU/L ALT (10-60) IU/L Alkaline Phosphatase (42-121) IU/L Total Protein (6.7-8.2) g/dL Albumin (3.2-5.5) g/dL Globulin (2.1-4.2) g/dL Albumin/Globulin Ratio (1.0-2.2) Urine Color YELLOW Urine Clarity CLEAR (CLEAR) Urine pH 7.5 (5.0-7.5) PH Ur Specific [place] 1.015 (1.002-1.030) Urine Protein NEGATIVE (NEGATIVE) mg/dL Urine Glucose (UA) NEGATIVE (NEGATIVE) mg/dL Urine Ketones NEGATIVE (NEGATIVE) mg/dL Urine Occult Blood SMALL H (NEGATIVE) Urine Nitrite NEGATIVE (NEGATIVE) Urine Bilirubin NEGATIVE (NEGATIVE) Urine Urobilinogen 0.2 (NORMAL) (NORMAL) E.U./dL Ur Leukocyte Esterase NEGATIVE (NEGATIVE) Urine RBC 6-10 H (0-5) /HPF Urine WBC 0-3 (0-5) /HPF Ur Squamous Epith Cells RARE Squamous (<= Few) Urine Bacteria Rare (None Seen) /HPF Urine Culture Comments NOT INDICATED 07/05/18 07/05/18 Range/Units 00:50 00:50 WBC (4.8-10.8) x10^3/uL RBC (4.20-5.40) 10^6/uL Hgb (12.0-16.0) g/dL Hct (37.0-47.0) % MCV (81.0-99.0) fL MCH (27.0-31.0) pg MCHC (32.0-36.0) g/dL RDW (12.0-15.0) % Plt Count (130-450) 10^3/uL MPV (7.9-10.8) fL Neut # (Auto) (1.5-6.6) 10^3/uL Lymph # (Auto) (1.5-3.5) 10^3/uL [place] # (Auto) (0.0-1.0) 10^3/uL Eos # (Auto) (0.0-0.7) 10^3/uL Baso # (Auto) (0.0-0.1) 10^3/uL Absolute Nucleated RBC x10^3/uL Nucleated RBC % /100WBC VBG pH (7.31-7.41) Sodium 135 (135-145) mmol/L Potassium 3.9 (3.5-5.0) mmol/L Chloride 105 (101-111) mmol/L Carbon Dioxide 21 (21-32) mmol/L Anion Gap 9.0 (6-13) BUN 13 (6-20) mg/dL Creatinine 0.6 (0.4-1.0) mg/dL Estimated GFR (MDRD) 100 (>89) Glucose 132 H (70-100) mg/dL Lactic Acid 1.8 (0.5-2.2) mmol/L Calcium 7.2 L (8.5-10.3) mg/dL Ionized Calcium YES Total Bilirubin 0.4 (0.2-1.0) mg/dL AST 30 (10-42) IU/L ALT 27 (10-60) IU/L Alkaline Phosphatase 46 (42-121) IU/L Total Protein 5.0 L (6.7-8.2) g/dL Albumin 3.0 L (3.2-5.5) g/dL Globulin 2.0 L (2.1-4.2) g/dL Albumin/Globulin Ratio 1.5 (1.0-2.2) Urine Color Urine Clarity (CLEAR) Urine pH (5.0-7.5) PH Ur Specific [place] (1.002-1.030) Urine Protein (NEGATIVE) mg/dL Urine Glucose (UA) (NEGATIVE) mg/dL Urine Ketones (NEGATIVE) mg/dL Urine Occult Blood (NEGATIVE) Urine Nitrite (NEGATIVE) Urine Bilirubin (NEGATIVE) Urine Urobilinogen (NORMAL) E.U./dL Ur Leukocyte Esterase (NEGATIVE) Urine RBC (0-5) /HPF Urine WBC (0-5) /HPF Ur Squamous Epith Cells (<= Few) Urine Bacteria (None Seen) /HPF Urine Culture Comments - Other Results/Comments Other Results/Comments: Right upper extremity in a short arm splint. Good warmth throughout all digits. She is able to flex and extend first through fifth digits. She has good comfort with this. Splint is intact. No evidence of skin breakdown at the edges. Left lower extremity has knee immobilizer in place. Dressing clean dry and i ntact. Patient initiate flexion extension of her toes and her ankle with good comfort. No focal calf tenderness. Assessment/Plan - Problem List (1) Left patella fracture Impression: Postoperative day #1 for right distal radius open reduction internal fixation and left patella open reduction internal fixation. Patient is orthopedically stable. She is somewhat somnolent this morning but arousable. I would recomme nd stopping her IV morphine. She may ultimately be discharged to prison facility/rehab or other appropriate safe disposition from orthopedic perspective, if okay from the Medical Hospitalist's perspective. With regards to the right upper extremity and left lower extremity, the patient should be nonweightbearing. She is encouraged to move her fingers on the right hand but should not do any lifting pushing or pulling there. The splint should be kept clean dry and intact. With regards to the left knee she is asked to avoid active knee extension. The knee immobilizer should be kept in place. She is encouraged to move her foot and ankle. She will need assistance and assistive device for transfers and likely wheelchair ambulation. She may follow-up in 10-14 days in the orthopedic clinic or sooner on an as-needed basis. (2) Right wrist fracture Qualifiers: Encounter type: subsequent encounter Fracture type: closed
[2018-07-05] MEDS: SACCHAROMYCES BOULARDII 250 MG CAPSULE PO SCH ×2 (07:54→18:21)
[2018-07-05] MEDS: POLYETHYLENE GLYCOL 3350 17 GM PACKET PO SCH (10:23)
[2018-07-05] MEDS: FAMOTIDINE 20 MG/50 ML 50 ML IV SCH (10:23)
[2018-07-05] MEDS: AMPHETAMINE SULFATE PO SCH (10:24)
[2018-07-05] MEDS: CHOLECALCIFEROL 1,000 UNIT TABLET PO SCH (10:31)
[2018-07-05] MEDS: CALCIUM CITRATE 250 MG TABLET PO SCH ×3 (10:31→20:32)
--- NOTE | 2018-07-05 11:53 | OPERATIVE REPORT ---
DATE OF SERVICE: 07/04/2018 Physician: Kehinde Morin MD SURGEON: Kehinde Morin MD. TRIMMING CUTTER: None. ANESTHESIA TYPE/PROVIDER: General anesthesia; Franky Ram CRNA. FLUIDS: 1800 mL lactated Ringer's. TOURNIQUET TIME 1. Left knee 96 minutes at 250 mmHg. 2. 99 minutes right upper extremity at 250 mmHg. PREOPERATIVE ANTIBIOTICS: 2 grams weight-based IV Ancef. ESTIMATED BLOOD LOSS 1. On left patella ORIF 100 mL. 2. Right wrist 50 mL. ORTHOPEDIC IMPLANTS 1. Left knee include 18-gauge wire, as well as 0.062 K-wire x2, as well as stainless steel modular hand screw. 2. Right wrist include Biomet DVR narrow right plate with associated 2.7 locking and nonlocking screws. COMPRESSION DEVICE: Right calf SCD boot. POSTOPERATIVE DIAGNOSES 1. Right distal radius intraarticular comminuted displaced fracture. 2. Left patella intraarticular comminuted displaced fracture. POSTOPERATIVE DIAGNOSES 1. Right distal radius intraarticular comminuted displaced fracture. 2. Left patella intraarticular comminuted displaced fracture. NAME OF PROCEDURES 1. Left patella open reduction and internal fixation. 2. Right distal radius open reduction and internal fixation with brachioradialis tenotomy. HISTORY OF PRESENT ILLNESS AND INDICATIONS: The patient is a 67-year-old female, with multiple medical/psychiatric history, in her usual state of health until a number of days ago, when she injured both her right wrist and left knee from a fall. She has a history of falls of unclear origin. She was indicated for operative treatment, given the significant intraarticular displaced nature of her fractures. We previously reviewed with her and her risks, benefits, alternatives. Potential operative risks discussed included, but were not limited to, infection, wound problems, nerve or blood vessel injury, numbness, tingling, weakness, pain, stiffness, decreased range of motion, decreased function in any manner, worsening of her condition, failure to "cure" patient's problem, iatrogenic injury, bleeding, blood loss, blood clot embolus, tourniquet complications, positioning complications, anesthetic complications including, but not limited to, major cardiovascular/neurovascular complication, even . We talked about the significant comminuted nature of the injuries, particular of the distal radius fracture, and the potential for need for additional surgeries in the right wrist or left knee, potential need for hardware removal, potential hardware prominence, potential for failure of the surgery and joint irregularity, and need for additional procedures in the future all the way up through and including potential fusion. The patient verbalized understanding of the above. She verbalized her wish to proceed with operative treatment. Informed consent was given. DESCRIPTION OF PROCEDURE: On 07/04/2018, patient is identified in her hospital room. Her right wrist and left knee are signed. She is brought to the operating room. Antibiotics were given. General anesthesia is given. Patient is placed in a comfortable and safe position with regard to her head, neck, and extremities to avoid peripheral nerve stretch and compression. First portion of the procedure involved the left knee. Patient's left lower extremity has her immobilizer removed. A well-padded tourniquet is placed high in the left thigh, taking care to avoid encumbrance of genitalia. Patient's left knee and left lower extremity are then prescrubbed with chlorhexidine solution and then prepped and draped in the usual sterile fashion. At this time, surgical pause identifies the left patella as operative site. At this point, Esmarch bandage is used to exsanguinate the patient's limb, and tourniquet was inflated. At this point, a lengthwise incision made in the prepatellar region, spreading dissection carried out to the bursal tissues and down to the fracture site. Hematoma is evacuated. Fracture edges are freshened with a knife and cleared of periosteum and hematoma. This joint is copiously irrigated. There are 2 major fracture fragments distally, 1 major fracture fragment proximally. The smaller of the 2 distal fragments is identified and shown to have some compression and reduced to the proximal fragment and then ultimately held with a small held with a modular hand screw. It should be noted that the joint surface is within 1-2 mm, and this is secondary to where the fracture keys in and element of compression of the bone as it is anatomically reduced anteriorly and within 1-2 mm in the joint. This is similar for the more major distal fragment, as there is some compression that is within 1-2 mm on the articular surface, whereas it keys in for the remainder of the fracture and is otherwise anatomically reduced. After fixation of the small fragment, the larger fragment is held with a reduction clamp, and then K-wires are driven in parallel from proximal to distal for the planned tension band construct. Once they are fired, there are noted to be extraarticular. The fracture is noted to be maximally reduced, and then cerclage technique is used, and the tension band 18-gauge wire is passed just posterior to the wires proximally and distally, and then ultimately with tension relieved on the patella, the medial and lateral aspects of this tension band are tightened, and then ultimately the ends are cut and then bent posteriorly to avoid soft tissue irritation. This holds the patella well, and with range of motion, there is no notable creep in the system. At this point, the K-wires are bent and then twisted posteriorly again to avoid soft tissue irritation. They are cut appropriate length. At this point, the joint is copiously irrigated. Medial and lateral retinacular splits are repaired with 0 Vicryl. Skin is closed with 0 Vicryl, 2-0 Vicryl, interrupted nylon suture after copious irrigation, hemostasis at every level. At this point, the local anesthesia is infused, which is 30 mL 0.25% Marcaine with epinephrine, around the patellar incision, and then the skin washed and dried. Xeroform dressing applied. Dry sterile dressing, soft roll, GALDINO wrap, and the knee immobilizer are applied. At this point, attention is directed towards the right upper extremity. The patient is positioned appropriately for this, again avoiding awkward positioning and protecting head, neck and extremities. It should be noted that the left lower extremity tourniquet had been removed. At this point, the right upper extremity has a well-padded tourniquet placed high on the arm, taking care to avoid encumbrance of the axilla. The patient is prepared with removal of her splint, the right upper extremity prescrubbed with chlorhexidine solution and prepping and draping anew. The entire operative set is changed, and no instruments from the previous left patella procedure are used. At this point, surgical pause identifies the right distal radius as operative site. At this point, Esmarch bandage is used to exsanguinate the limb, and tourniquet is inflated. Incision is made then over the FCR and then angled towards the wrist crease, spreading dissection carried out to the FCR, which sheath is incised anteriorly. Then, the tendon is brought aside, and then the posterior aspect of the sheath is incised and then spreading dissection carried out down to the pronator quadratus, which is then elevated off the distal radius in an L-shaped fashion. At this point, the first dorsal extensor compartment is identified and protected, and the brachioradialis is lifted off the radial styloid. At this point, the fracture site is identified and removed of hematoma and periosteum. There is noted to be a sagittal split involving the lunate fossa, and this is reduced maximally with a reduction maneuver and held in place, such that the initial fixation would be of the ulnar compartment with a threaded screw and then ultimately fixation of the radial compartment. In fixation of the shaft, it should be noted that a narrow plate DVR fit the best and was seated to an appropriate position, such that the screws would remain extraarticular. They are intended to be immediately in the subchondral bone, as the thickness of the fragment was quite small, and there would be no purchase more proximally. Extraarticular positioning of the screw is confirmed with live fluoroscopic image and fluoroscopic images in multiple planes. After appropriate fixation, not only of the locking screws distally, but of the nonlocking and locking screws proximally in the shaft, fracture is noted to be acceptably reduced with fixation of radial and ulnar columns and extraarticular hardware with good range of motion of the wrist. At this point, the wound is copiously irrigated. The pronator quadratus is repaired using 0 Vicryl and then this is again copiously irrigated, and then the skin was closed in a layered fashion using 0 Vicryl, 2-0 Vicryl, and interrupted nylon suture. Skin was washed and dried. Xeroform dressing is applied. Dry sterile dressing applied. Soft roll is applied, and patient is placed in a clamshell splint. Patient tolerated the procedure well. Instrument and sponge counts were correct. Patient was transferred to the recovery room in stable condition. The patient did have a supraclavicular nerve block by Anesthesia prior to leaving the operating room. Patient would follow standard postoperative right distal radius ORIF and left patella ORIF protocol. Patient will be nonweightbearing right upper extremity and left lower extremity. She would avoid getting the splints wet. She will keep knee immobilizer on the left knee and avoid active knee extension. She would use assistance for ambulation presumably in wheelchair, though may use left upper extremity assistive device if needed. Patient would be on appropriate analgesic medications and SCDs for DVT prophylaxis. ADDITIONAL PROCEDURE: Patient had 4-view mini C-arm fluoroscopic image taken intraoperatively. RADIOGRAPHIC INDICATIONS: Evaluate for distal radius reduction and hardware placement. Radiographic findings demonstrate nearly anatomically reduced distal radius fracture with metallic plate and screw in place, appears to be extraarticular. There is noted to be some dorsal comminution, but significant improvement in fracture position compared to preoperative films, and there is no evidence of hardware in the DRUJ. RADIOGRAPHIC IMPRESSION: Right wrist x-rays as above. TD: 07/05/2018 08:39 VIMAL
[2018-07-05] MEDS: SODIUM CHLORIDE FLUSH 0.9% 10 ML SYRINGE IVP PRN (13:50)
--- NOTE | 2018-07-05 15:06 | PROVIDER PROGRESS NOTE ---
Subjective - Prog Note Date Prog Note Date: 07/05/18 Prog Note Time: 18:01 - Subjective Subjective: As the day wore on yesterday, the patient became increasingly more frightened. Panic stricken. She was demanding that the nurse call 911 because she was dying and no one was taking care of her. By 8:00 last night she had escalated to a full-blown panic attack where she was sobbing uncontrollably, yelling at the nurses, and had to have Ativan. She wanted to know what we had done to her. She had no recollection of being in the OR. Even though she had spoken to the orthopedic surgeon and had everything explained to her in the postoperative setting, she did not remember any of those conversations. She also did not remember having a conversation with social work. She was supposed to be going to a detention facility today because she is unable to take care of herself with the right hand and arm in a cast and the left knee being immobile. She was angry. Said that she never agreed to that. We needed to do a lot of proactive soothing to get her calm down last night and this morning. As such she has been sedated most of the day after being on Ativan last night. She also had a fever overnight. Up to 38.8. Not congested a chest x-ray, blood cultures, UA. No real source of infection found in that chest x-ray is negative, UA negative. She was placed on Ancef in the perioperative setting. All day today she is been afebrile. Now tonight, at 1800 she is again ramping up. She is angry. Wants to go home. She says that she can walk down the hallway, get in her car, and drive away without any help. She is oriented to place. Not time. Again does not remember that she had surgery. Again does not remember that she agreed to go to a detention facility for placement. Current Medications - Current Medications Current Medications: Active Medications Acetaminophen (Tylenol) 650 mg PO Q4HR PRN PRN Reason: Pain or Fever > 38C (100.4F) Bupropion HCl (Wellbutrin Sr) 200 mg PO 0600,1500 [facility] Last Admin: 07/05/18 14:00 Dose: 200 mg Buspirone HCl (Buspar) 30 mg PO QPM [facility] Last Admin: 07/04/18 20:57 Dose: 30 mg Calcium Citrate () 250 mg PO BID [facility] Last Admin: 07/05/18 10:31 Dose: 250 mg Cholecalciferol (Vitamin D3) 2,000 unit PO DAILY [facility] Last Admin: 07/05/18 10:31 Dose: 2,000 unit Docusate Sodium (Colace 250mg Capsule) 250 - 500 mg PO DAILY [facility] Famotidine (Pepcid 20 Mg/50 Ml) 50 mls @ 100 mls/hr IV DAILY [facility] Last Infusion: 07/05/18 11:33 Dose: Infused Sodium Chloride (Normal Saline 0.9%) 1,000 mls @ 83.333 mls/hr IV .Q12H [facility] Last Infusion: 07/05/18 15:43 Dose: Infused Cefazolin Sodium/Dextrose (Ancef 2 Gm/50 Ml) 2 gm in 50 mls @ 100 mls/hr IV Q8H [facility] Last Infusion: 07/05/18 10:50 Dose: Infused Levothyroxine Sodium (Synthroid) 75 mcg PO QDAC [facility] Last Admin: 07/05/18 05:24 Dose: 75 mcg Lorazepam (Ativan) 1 mg PO DAILY PRN PRN Reason: Anxiety Last Admin: 07/02/18 08:21 Dose: 1 mg Lorazepam (Ativan Inj (Vial)) 1 mg IVP Q2H PRN PRN Reason: Anxiety Last Admin: 07/05/18 13:49 Dose: 1 mg Non-Formulary Medication (Clomipramine Hcl [Clomipramine Hcl]) 200 mg PO QPM [facility] Last Admin: 07/04/18 21:00 Dose: 200 mg Ondansetron HCl (Zofran Inj) 4 mg IVP Q6HR PRN PRN Reason: Nausea / Vomiting Oxycodone HCl (Roxicodone) 10 mg PO Q4HR PRN PRN Reason: Pain 8 to 10 Last Admin: 07/05/18 13:49 Dose: 10 mg Oxycodone HCl (Roxicodone) 5 mg PO Q4HR PRN PRN Reason: Pain 5 to 7 Polyethylene Glycol (Miralax) 17 gm PO DAILY [facility] Last Admin: 07/05/18 10:23 Dose: 17 gm Prochlorperazine Edisylate (Compazine Inj) 10 mg IVP Q6HR PRN PRN Reason: Nausea / Vomiting Quetiapine Fumarate (Seroquel) 400 mg PO QPM [facility] Last Admin: 07/04/18 20:58 Dose: 400 mg Saccharomyces Boulardii (Florastor) 250 mg PO BIDWM [facility] Last Admin: 07/05/18 07:54 Dose: 250 mg Senna (Senokot) 8.6 - 17.2 mg PO DAILY [facility] Sodium Chloride (Normal Saline Flush 0.9%) 10 ml IVP PRN PRN PRN Reason: NEEDED PER PROVIDER ORDERS Last Admin: 07/05/18 13:50 Dose: 10 ml Sodium Chloride (Normal Saline Flush 0.9%) 10 ml IVP 0100,0900,1700 [facility] Last Admin: 07/05/18 10:24 Dose: Not Given Temazepam (Restoril) 15 mg PO QPM PRN PRN Reason: Insomnia Last Admin: 07/01/18 22:25 Dose: 15 mg Throat Lozenges (Cepacol) 1 lozenge MM Q2HR PRN PRN Reason: Throat pain Last Admin: 07/04/18 14:19 Dose: 1 lozenge Buspirone HCl 30 mg PO QPM 07/14/17 Levothyroxine Sodium 75 mcg PO QDAC 07/14/17 Lorazepam [Ativan] 1 mg PO DAILY PRN 07/14/17 Quetiapine Fumarate [Seroquel] 400 mg PO DAILY PM 07/14/17 buPROPion HCl [Bupropion HCl Sr] 200 mg PO 0600,1500 07/14/17 Amphetamine Sulfate [Evekeo] 20 mg PO QPMX3D 07/01/18 Clomipramine HCl 200 mg PO QPM 07/01/18 Calcium Carbonate [Antacid] 400 mg PO BID 07/02/18 Polyethylene Glycol 3350 [Miralax] 17 gm PO Q3D 07/02/18 Objective - Vital Signs/Intake & Output Reviewed Vital Signs: Yes Vital Signs: Vital Signs x48h Temp Pulse Resp BP Pulse Ox 07/05/18 07:51 36.7 C 99 16 117/67 93 Intake & Output: Intake & Output 07/02/18 07/03/18 07/04/18 07/05/18 23:59 23:59 23:59 23:59 Intake Total 2440 3858.218 1600 1390.000 Output Total 2150 2500 2100 325 Balance 290 1358.218 -500 1065.000 - Objective General Appearance: positive: Moderate distress (With anger, anxiety) Eyes Bilateral: positive: PERRL, EOMI ENT: positive: Pharynx nml Neck: positive: No JVD. negative: Stiff neck, Carotid bruit Respiratory: positive: Chest non-tender, No respiratory distress. negative: Wheezes, Rales, Rhonchi Cardiovascular: positive: Tachycardia. negative: Gallop/S4, Friction rub (Right at this moment in time. She has been in the 80s and 90s all day today. Right now with her anger I am counting a pulse of around 110) Abdomen: positive: Non-tender, No organomegaly, Nml bowel sounds, No distention Skin: positive: Warm, Dry Extremities: positive: Full ROM, No pedal edema, Other (Right wrist and arm in cast. Left leg in immobilizer and cast.) Neurologic/Psychiatric: positive: CN's nml (2-12), Motor nml, Disoriented to time. negative: Mood/affect nml - Lab Results Fish Bones: 07/05/18 00:50 07/05/18 00:50 Other Labs: Lab Results x24hrs 07/05/18 07/05/18 07/05/18 Range/Units 02:00 01:15 00:50 WBC 8.1 (4.8-10.8) x10^3/uL RBC 2.99 L (4.20-5.40) 10^6/uL Hgb 9.9 L (12.0-16.0) g/dL Hct 29.3 L (37.0-47.0) % MCV 97.8 (81.0-99.0) fL MCH 33.1 H (27.0-31.0) pg MCHC 33.8 (32.0-36.0) g/dL RDW 13.7 (12.0-15.0) % Plt Count 99 L (130-450) 10^3/uL MPV 8.2 (7.9-10.8) fL Neut # (Auto) 6.2 (1.5-6.6) 10^3/uL Lymph # (Auto) 0.8 L (1.5-3.5) 10^3/uL [place] # (Auto) 1.0 (0.0-1.0) 10^3/uL Eos # (Auto) 0.0 (0.0-0.7) 10^3/uL Baso # (Auto) 0.1 (0.0-0.1) 10^3/uL Absolute Nucleated RBC 0.00 x10^3/uL Nucleated RBC % 0.0 /100WBC VBG pH 7.415 H (7.31-7.41) Sodium (135-145) mmol/L Potassium (3.5-5.0) mmol/L Chloride (101-111) mmol/L Carbon Dioxide (21-32) mmol/L Anion Gap (6-13) BUN (6-20) mg/dL Creatinine (0.4-1.0) mg/dL Estimated GFR (MDRD) (>89) Glucose (70-100) mg/dL Lactic Acid (0.5-2.2) mmol/L Calcium (8.5-10.3) mg/dL Ionized Calcium 0.97 L Total Bilirubin (0.2-1.0) mg/dL AST (10-42) IU/L ALT (10-60) IU/L Alkaline Phosphatase (42-121) IU/L Total Protein (6.7-8.2) g/dL Albumin (3.2-5.5) g/dL Globulin (2.1-4.2) g/dL Albumin/Globulin Ratio (1.0-2.2) Urine Color YELLOW Urine Clarity CLEAR (CLEAR) Urine pH 7.5 (5.0-7.5) PH Ur Specific [place] 1.015 (1.002-1.030) Urine Protein NEGATIVE (NEGATIVE) mg/dL Urine Glucose (UA) NEGATIVE (NEGATIVE) mg/dL Urine Ketones NEGATIVE (NEGATIVE) mg/dL Urine Occult Blood SMALL H (NEGATIVE) Urine Nitrite NEGATIVE (NEGATIVE) Urine Bilirubin NEGATIVE (NEGATIVE) Urine Urobilinogen 0.2 (NORMAL) (NORMAL) E.U./dL Ur Leukocyte Esterase NEGATIVE (NEGATIVE) Urine RBC 6-10 H (0-5) /HPF Urine WBC 0-3 (0-5) /HPF Ur Squamous Epith Cells RARE Squamous (<= Few) Urine Bacteria Rare (None Seen) /HPF Urine Culture Comments NOT INDICATED 07/05/18 07/05/18 Range/Units 00:50 00:50 WBC (4.8-10.8) x10^3/uL RBC (4.20-5.40) 10^6/uL Hgb (12.0-16.0) g/dL Hct (37.0-47.0) % MCV (81.0-99.0) fL MCH (27.0-31.0) pg MCHC (32.0-36.0) g/dL RDW (12.0-15.0) % Plt Count (130-450) 10^3/uL MPV (7.9-10.8) fL Neut # (Auto) (1.5-6.6) 10^3/uL Lymph # (Auto) (1.5-3.5) 10^3/uL [place] # (Auto) (0.0-1.0) 10^3/uL Eos # (Auto) (0.0-0.7) 10^3/uL Baso # (Auto) (0.0-0.1) 10^3/uL Absolute Nucleated RBC x10^3/uL Nucleated RBC % /100WBC VBG pH (7.31-7.41) Sodium 135 (135-145) mmol/L Potassium 3.9 (3.5-5.0) mmol/L Chloride 105 (101-111) mmol/L Carbon Dioxide 21 (21-32) mmol/L Anion Gap 9.0 (6-13) BUN 13 (6-20) mg/dL Creatinine 0.6 (0.4-1.0) mg/dL Estimated GFR (MDRD) 100 (>89) Glucose 132 H (70-100) mg/dL Lactic Acid 1.8 (0.5-2.2) mmol/L Calcium 7.2 L (8.5-10.3) mg/dL Ionized Calcium YES Total Bilirubin 0.4 (0.2-1.0) mg/dL AST 30 (10-42) IU/L ALT 27 (10-60) IU/L Alkaline Phosphatase 46 (42-121) IU/L Total Protein 5.0 L (6.7-8.2) g/dL Albumin 3.0 L (3.2-5.5) g/dL Globulin 2.0 L (2.1-4.2) g/dL Albumin/Globulin Ratio 1.5 (1.0-2.2) Urine Color Urine Clarity (CLEAR) Urine pH (5.0-7.5) PH Ur Specific [place] (1.002-1.030) Urine Protein (NEGATIVE) mg/dL Urine Glucose (UA) (NEGATIVE) mg/dL Urine Ketones (NEGATIVE) mg/dL Urine Occult Blood (NEGATIVE) Urine Nitrite (NEGATIVE) Urine Bilirubin (NEGATIVE) Urine Urobilinogen (NORMAL) E.U./dL Ur Leukocyte Esterase (NEGATIVE) Urine RBC (0-5) /HPF Urine WBC (0-5) /HPF Ur Squamous Epith Cells (<= Few) Urine Bacteria (None Seen) /HPF Urine Culture Comments ABX Reporting Has patient been on IV antibiotics over the past 48 hours?: Yes Assessment/Plan - Problem List (1) Panic attack Impression: As the day wore on yesterday, the patient became increasingly more frightened. Panic stricken. She was demanding that the nurse call 911 because she was dying and no one was taking care of her. By 8:00 last night she had escalated to a full-blown panic attack where she was sobbing uncontrollably, yelling at the nurses, and had to have Ativan. She wanted to know what we had done to her. She had no recollection of being in the OR. Even though she had spoken to the orthopedic surgeon and had everything explained to her in the postoperative setting, she did not remember any of those conversations. She also did not remember having a conversation with social work. She was supposed to be going to a detention facility today because she is unable to take care of herself with the right hand and arm in a cast and the left knee being immobile. She was angry. Said that she never agreed to that. We needed to do a lot of proactive soothing to get her calm down last night and this morning. As such she has been sedated most of the day after being on Ativan last night. But vitals are stable. She did have a fever last night and that will be addressed in the second problem. At this moment, we will give her Ativan again. She does have a known history of alcohol abuse prior to admission. But she does not appear to be in delirium tremens. She is not hypertensive, severely tachycardic, diaphoretic, nor is she hallucination (2) Fever Impression: She did have anesthesia but I do not think this is malignant hyperthermia. This patient has been in bed for a couple of days and she could have early atele ctasis. Chest x-ray noncontributory. Blood cultures have been received and are pending. Urinalysis had a small amount of occult blood, negative leukocyte esterase, 6-10 red cells, squamous cells, bacteria. Culture is not indicated. Plan: Continue to monitor. If she has another fever spike, add empiric antibiotic therapy for broad- spectrum coverage for fever of unknown etiology. Qualifiers: Fever type: post-procedural Qualified Code(s): R50.82 - Postprocedural fever (3) Acute blood loss as cause of postoperative anemia Impression: monitor w daily cbc and transfuse as needed. (4) Left patella fracture Impression: D/W Dr Morin at bedside 07/02 Will need fixation, pending availability of hardware needed for surgery - [place] and will have to be ordered. POD #1 for open reduction internal fixation right distal radius fracture with possible brachioradialis tenotomy as well as left patella open reduction internal fixati on. Her revised cardiac index is 0 points, class I risk, 0.4% risk of major cardiac event. Qualifiers: Encounter type: initial encounter Fracture type: closed Fracture morphology: comminuted Fracture alignment: displaced Qualified Code(s): S82.042A - Displaced comminuted fracture of left patella, initial encounter for closed fracture (5) Right wrist fracture Impression: Impacted articular fracture of radial metaphysis. Ortho currently decided on operative vs non-operative tx. Did not go to OR bc no hardware available, will need prolonged OR time. Meanwhile, pain controlled with current pain meds, cont splint. POD #1 Qualifiers: Encounter type: initial encounter Fracture type: closed Qualified Code(s): S62.101A - Fracture of unspecified carpal bone, right wrist, initial encounter for closed fracture (6) Psychiatric disorder Impression: Per pt, pt has multiple pscyh problems including bipolar, OCD, PTSD. Unclear extend of true diagosis. Pt states she recently "fired" her psychiatrist. For now, cont home meds. These may need to be adjusted outpt, but will need to be weaned. Definitely having panic attacks right now. She is on her BuSpar, clomipramine, Seroquel. Also on bupropion. (7) Falls frequently Impression: Chronic problem, not acute syncope. Has had some outpt w/u, but not with neurology. Likely 2/2 polypharmacy with varios psych meds. Cont to monitor, but no reversible metabolic sources identified up to this point on this admission. I have asked case management to speak to the patient about her benefits under versus Medicare. She needs education on what she is qualified for in the home. The patient expresses fears regarding her home stay because her has his own "health issues" and may not be able to help take care of her. Case management did see her: I went and talked to the patient she said that she could use [facility] for [facility] patient care and wanted to do that so called the [facility] talked to Deepthi who said they might pay for an aid at home. care manage needs to follow up with [facility] tomorrow Deepthi said to call the psychiatric social worker supervisor at and talk to Shweta Dupree and she can help set up an aid for home message left for care manger to follow up on tomorrow. Katina will send nurse to assess pt. on Monday, Jul 06. Yesica will call abt 9:30am with time.
[2018-07-05] MEDS: SENNA 8.6 MG TABLET PO SCH (18:21)
[2018-07-05] MEDS: DOCUSATE SODIUM 250 MG CAPSULE PO SCH (18:21)
[2018-07-05] MEDS: QUEtiapine 100 MG TABLET PO SCH (20:09)
[2018-07-05] MEDS: busPIRone 5 MG TABLET PO SCH (20:10)
[2018-07-05] MEDS: CLOMIPRAMINE HCL 200 MG PO SCH (20:10)
[2018-07-06] MEDS: oxyCODONE 5 MG TABLET PO PRN (00:45)
[2018-07-06] MEDS: SODIUM CHLORIDE FLUSH 0.9% 10 ML SYRINGE IVP SCH ×3 (01:36→17:36)
[2018-07-06] MEDS: SODIUM CHLORIDE 0.9% 1,000 ML IV SCH ×2 (05:54→19:05)
[2018-07-06] MEDS: buPROPion SR 100 MG TABLET PO SCH ×2 (05:57→14:03)
[2018-07-06] MEDS: LEVOTHYROXINE 75 MCG TABLET PO SCH (05:57)
[2018-07-06] MEDS ORDERED: MAGNESIUM HYDROXIDE 2,400 MG/30 ML UDC PO ONE (06:00)
[2018-07-06] MEDS: DOCUSATE SODIUM 250 MG CAPSULE PO SCH (08:16)
[2018-07-06] MEDS: CHOLECALCIFEROL 1,000 UNIT TABLET PO SCH (08:16)
[2018-07-06] MEDS: SACCHAROMYCES BOULARDII 250 MG CAPSULE PO SCH ×2 (08:16→17:36)
[2018-07-06] MEDS: CALCIUM CITRATE 250 MG TABLET PO SCH ×2 (08:16→22:24)
[2018-07-06] MEDS: SENNA 8.6 MG TABLET PO SCH ×3 (08:16→23:52)
[2018-07-06] MEDS: FAMOTIDINE 20 MG/50 ML 50 ML IV SCH (08:17)
[2018-07-06] MEDS: POLYETHYLENE GLYCOL 3350 17 GM PACKET PO SCH (08:17)
--- NOTE | 2018-07-06 08:43 | PROVIDER PROGRESS NOTE ---
Subjective - Prog Note Date Prog Note Date: 07/06/18 - Subjective Pt reports feeling: Improved (patient somnolent but awake this AM and cooperative with exam, able to state that she is in the "[facility]" and says she remembers that she had surgery) Objective - Vital Signs/Intake & Output Vital Signs: Vital Signs x48h Temp Pulse Resp BP Pulse Ox 07/06/18 08:00 37.3 C 100 20 128/79 97 Intake & Output: Intake & Output 07/03/18 07/04/18 07/05/18 07/06/18 23:59 23:59 23:59 23:59 Intake Total 3858.218 1600 3260.000 1166.20 Output Total 2500 2100 1625 2000 Balance 1358.218 -500 1635.000 -833.80 - Lab Results Fish Bones: 07/05/18 00:50 07/05/18 00:50 - Other Results/Comments Other Results/Comments: Demonstrates RUE R/M/U motor and sensory, splint intact. edges well padded with no evidence of skin break down. able to move digits though stiff. full motion with AAROM. LLE ankle flex ex without judy AROM and PROM. calves s/nt. SCD in place RLE. Knee brace and bulky mauro dressing in place and dry. Assessment/Plan - Problem List (1) Left patella fracture Impression: Pt with multiple medical/psychiatric hx. appreciate events above. ok regarding post op right wrist and left knee. will plan to keep dressings/splints on and intact for protection. Recommend skin checks at edges of splints/dressings. PT/OT for RUE digital ROM and transfer training -with full assist. Pt also en couraged to flex and extend left ankle and toes. NWB RUE and LLE. Continue SCD Ok from Ortho perspective for dc to snf/rehab pending resolution/stabilization of med/psych issues. Defer to Hospitalist in this regard. otherwise cont current mgt. if dc'd may f/u in approx 10 days ortho clinic or sooner prn (2) Right wrist fracture Qualifiers: Encounter type: subsequent encounter Fracture type: closed
[2018-07-06] MEDS: LORazepam 1 MG TABLET PO PRN (18:21)
--- NOTE | 2018-07-06 21:08 | PROVIDER PROGRESS NOTE ---
Subjective - Prog Note Date Prog Note Date: 07/06/18 Prog Note Time: 21:06 - Subjective Subjective: After last night, she did receive Ativan. Against that most of the day. This evening seems to be calmer. Not as agitated. However in the middle of the day she refused to meet with [employer] [facility] employee for assessment. As such [facility] has declined. We are now looking for placement through her [facility] benefits. She has not had any further fever 24 hours. At this point in time no chest pain, cough, shortness of breath. Current Medications - Current Medications Current Medications: Active Medications Acetaminophen (Tylenol) 650 mg PO Q4HR PRN PRN Reason: Pain or Fever > 38C (100.4F) Last Admin: 07/06/18 18:22 Dose: 650 mg Bupropion HCl (Wellbutrin Sr) 200 mg PO 0600,1500 [facility] Last Admin: 07/06/18 14:03 Dose: 200 mg Buspirone HCl (Buspar) 30 mg PO QPM [facility] Last Admin: 07/05/18 20:10 Dose: 30 mg Calcium Citrate () 250 mg PO BID [facility] Last Admin: 07/06/18 08:16 Dose: 250 mg Cholecalciferol (Vitamin D3) 2,000 unit PO DAILY [facility] Last Admin: 07/06/18 08:16 Dose: 2,000 unit Docusate Sodium (Colace 250mg Capsule) 250 - 500 mg PO DAILY [facility] Last Admin: 07/06/18 08:16 Dose: 250 mg Famotidine (Pepcid 20 Mg/50 Ml) 50 mls @ 100 mls/hr IV DAILY [facility] Last Infusion: 07/06/18 08:47 Dose: Infused Sodium Chloride (Normal Saline 0.9%) 1,000 mls @ 83.333 mls/hr IV .Q12H [facility] Last Admin: 07/06/18 19:05 Dose: 83.3 mls/hr Levothyroxine Sodium (Synthroid) 75 mcg PO QDAC [facility] Last Admin: 07/06/18 05:57 Dose: 75 mcg Lorazepam (Ativan) 1 mg PO DAILY PRN PRN Reason: Anxiety Last Admin: 07/06/18 18:21 Dose: 1 mg Lorazepam (Ativan Inj (Vial)) 1 mg IVP Q2H PRN PRN Reason: Anxiety Last Admin: 07/05/18 23:32 Dose: 1 mg Non-Formulary Medication (Clomipramine Hcl [Clomipramine Hcl]) 200 mg PO QPM [facility] Last Admin: 07/05/18 20:10 Dose: 200 mg Ondansetron HCl (Zofran Inj) 4 mg IVP Q6HR PRN PRN Reason: Nausea / Vomiting Oxycodone HCl (Roxicodone) 10 mg PO Q4HR PRN PRN Reason: Pain 8 to 10 Last Admin: 07/06/18 00:45 Dose: 10 mg Oxycodone HCl (Roxicodone) 5 mg PO Q4HR PRN PRN Reason: Pain 5 to 7 Polyethylene Glycol (Miralax) 17 gm PO DAILY [facility] Last Admin: 07/06/18 08:17 Dose: 17 gm Prochlorperazine Edisylate (Compazine Inj) 10 mg IVP Q6HR PRN PRN Reason: Nausea / Vomiting Quetiapine Fumarate (Seroquel) 400 mg PO QPM [facility] Last Admin: 07/05/18 20:09 Dose: 400 mg Saccharomyces Boulardii (Florastor) 250 mg PO BIDWM [facility] Last Admin: 07/06/18 17:36 Dose: Not Given Senna (Senokot) 8.6 - 17.2 mg PO DAILY [facility] Last Admin: 07/06/18 08:16 Dose: 8.6 mg Senna (Senokot) 17.2 - 25.8 mg PO Q6H [facility] Stop: 07/07/18 12:01 Last Admin: 07/06/18 18:22 Dose: 25.8 mg Sodium Chloride (Normal Saline Flush 0.9%) 10 ml IVP PRN PRN PRN Reason: NEEDED PER PROVIDER ORDERS Last Admin: 07/05/18 13:50 Dose: 10 ml Sodium Chloride (Normal Saline Flush 0.9%) 10 ml IVP 0100,0900,1700 [facility] Last Admin: 07/06/18 17:36 Dose: Not Given Temazepam (Restoril) 15 mg PO QPM PRN PRN Reason: Insomnia Last Admin: 07/01/18 22:25 Dose: 15 mg Throat Lozenges (Cepacol) 1 lozenge MM Q2HR PRN PRN Reason: Throat pain Last Admin: 07/04/18 14:19 Dose: 1 lozenge Buspirone HCl 30 mg PO QPM 07/14/17 Levothyroxine Sodium 75 mcg PO QDAC 07/14/17 Lorazepam [Ativan] 1 mg PO DAILY PRN 07/14/17 Quetiapine Fumarate [Seroquel] 400 mg PO DAILY PM 07/14/17 buPROPion HCl [Bupropion HCl Sr] 200 mg PO 0600,1500 07/14/17 Amphetamine Sulfate [Evekeo] 20 mg PO QPMX3D 07/01/18 Clomipramine HCl 200 mg PO QPM 07/01/18 Calcium Carbonate [Antacid] 400 mg PO BID 07/02/18 Polyethylene Glycol 3350 [Miralax] 17 gm PO Q3D 07/02/18 Objective - Vital Signs/Intake & Output Reviewed Vital Signs: Yes Vital Signs: Vital Signs x48h Temp Pulse Resp BP Pulse Ox 07/06/18 15:51 37.3 C 95 20 128/77 96 Intake & Output: Intake & Output 07/03/18 07/04/18 07/05/18 07/06/18 23:59 23:59 23:59 23:59 Intake Total 3858.218 1600 3260.000 2926.28 Output Total 2500 2100 1625 3500 Balance 1358.218 -500 1635.000 -573.72 - Objective General Appearance: positive: No acute distress, Other (Sleeping, wakes with voice introduction, but then asked me to leave the room because she does not want to be examined. She reluctantly agrees with a quick exam and then again asked me to leave the room so she can go back to sleep.) Eyes Bilateral: positive: PERRL ENT: positive: Pharynx nml Neck: positive: No JVD. negative: Stiff neck, Carotid bruit Respiratory: positive: Chest non-tender. negative: Wheezes, Rales, Rhonchi Cardiovascular: positive: Regular rate & rhythm. negative: Gallop/S4, Friction rub Abdomen: positive: Non-tender, No organomegaly, Nml bowel sounds, No distention Skin: positive: Warm, Dry Extremities: positive: Other (Left leg with bandage, right arm is bandaged.) Neurologic/Psychiatric: positive: CN's nml (2-12), Motor nml, Disoriented to time (But oriented to person and place. Remembers that she had the surgery today.) - Lab Results Fish Bones: 07/05/18 00:50 07/05/18 00:50 ABX Reporting Has patient been on IV antibiotics over the past 48 hours?: Yes Assessment/Plan - Problem List (1) Panic attack Impression: As the day wore on 07/04 and 07/05, the patient became increasingly more frightened. Panic stricken. She was demanding that the nurse call 911 because she was dying and no one was taking care of her. By 8:00 last night she had escalated to a full-blown panic attack where she was sobbing uncontrollably, yelling at the nurses, and had to have Ativan. She wanted to know what we had done to her. She had no recollection of being in the OR. Even though she had spoken to the orthopedic surgeon and had everything explained to her in the postoperative setting, she did not remember any of those conversations. She also did not remember having a conversation with social work. She was supposed to be going to a [facility] facility today because she is unable to take care of herself with the right hand and arm in a cast and the left knee being immobile. She was angry. Said that she never agreed to that. We needed to do a lot of proactive soothing to get her calm down 07/04 and 07/05 am. As such she had been sedated most of the last 2 days after being on Ativan at night. But vitals are stable. She did have a fever 07/04 and that will be addressed in the second problem. At this moment, are giving her Ativan prn. Although sleepy, less angry but still not wanting to see SNF lighting director. She does have a known history of alcohol abuse prior to admission. But she does not appear to be in delirium tremens. She is not hypertensive, severely tachycardic, diaphoretic, nor is she hallucination (2) Fever Impression: She did have anesthesia but I do not think this is malignant hyperthermia. This patient has been in bed for a couple of days and she could have early a telectasis. Chest x-ray noncontributory. Blood cultures have been received and are negative. Urinalysis had a small amount of occult blood, negative leukocyte esterase, 6-10 red cells, squamous cells, bacteria. Culture is not indicated. Plan: Continue to monitor. If she has another fever spike, add empiric antibiotic therapy for broad- spectrum coverage for fever of unknown etiology. So far no further fever. Qualifiers: Fever type: post-procedural Qualified Code(s): R50.82 - Postprocedural fever (3) Acute blood loss as cause of postoperative anemia Impression: monitor w daily cbc and transfuse as needed. (4) Left patella fracture Impression: D/W Dr Morin at bedside 07/02 Will need fixation, pending availability of hardware needed for surgery [place] and will have to be ordered. POD #2 for open reduction internal fixation right distal radius fracture with possible brachioradialis tenotomy as well as left patella open reduction internal fixation. Her revised cardiac index is 0 points, class I risk, 0.4% risk of major cardiac event. Qualifiers: Encounter type: initial encounter Fracture type: closed Fracture morphology: comminuted Fracture alignment: displaced Qualified Code(s): S82.042A - Displaced comminuted fracture of left patella, initial encounter for closed fracture (5) Right wrist fracture Impression: Impacted articular fracture of radial metaphysis. Ortho currently decided on operative vs non-operative tx. Did not go to OR bc no hardware available, will need prolonged OR time. Meanwhile, pain controlled with current pain meds, cont splint. POD #2 Qualifiers: Encounter type: initial encounter Fracture type: closed Qualified Code(s): S62.101A - Fracture of unspecified carpal bone, right wrist, initial encounter for closed fracture (6) Psychiatric disorder Impression: Per pt, pt has multiple pscyh problems including bipolar, OCD, PTSD. Unclear extend of true diagosis. Pt states she recently "fired" her psychiatrist. For now, cont home meds. These may need to be adjusted outpt, but will need to be weaned. Definitely having panic attacks right now. She is on her BuSpar, clomipramine, Seroquel. Also on bupropion. (7) Falls frequently Impression: Chronic problem, not acute syncope. Has had some outpt w/u, but not with neurology. Likely 2/2 polypharmacy with varios psych meds. Cont to monitor, but no reversible metabolic sources identified up to this point on this admission. I have asked case management to speak to the patient about her benefits under versus Medicare. She needs education on what she is qualified for in the home. The patient expresses fears regarding her home stay because her has his own "health issues" and may not be able to help take care of her. Case management did see her: I went and talked to the patient she said that she could use the VA for her out patient care and wanted to do that so called the VA talked to Deepthi who said they might pay for an aid at home. care dianne needs to follow up with va tomorrow Deepthi said to call the social economist at and talk to Shweta Dupree and she can help set up an aid for home message left for care manger to follow up on tomorrow. Katina will send nurse to assess pt. today and they have declined. We are now looking for help thru her 100% service connected VA benefits.
[2018-07-06] MEDS: QUEtiapine 100 MG TABLET PO SCH (22:24)
[2018-07-06] MEDS: busPIRone 5 MG TABLET PO SCH (22:24)
[2018-07-06] MEDS: CLOMIPRAMINE HCL 200 MG PO SCH (22:24)
[2018-07-07] MEDS: SODIUM CHLORIDE FLUSH 0.9% 10 ML SYRINGE IVP SCH ×2 (00:37→07:25)
[2018-07-07] MEDS: SENNA 8.6 MG TABLET PO SCH ×3 (06:39→11:34)
[2018-07-07] MEDS: buPROPion SR 100 MG TABLET PO SCH (06:39)
[2018-07-07] MEDS: SODIUM CHLORIDE 0.9% 1,000 ML IV SCH (06:39)
[2018-07-07] MEDS: LEVOTHYROXINE 75 MCG TABLET PO SCH (06:39)
[2018-07-07] MEDS: CALCIUM CITRATE 250 MG TABLET PO SCH (08:16)
[2018-07-07] MEDS: DOCUSATE SODIUM 250 MG CAPSULE PO SCH (08:16)
[2018-07-07] MEDS: oxyCODONE 5 MG TABLET PO PRN (08:16)
[2018-07-07] MEDS: BENZOCAINE/MENTHOL LOZENGE MM PRN (08:16)
[2018-07-07] MEDS: CHOLECALCIFEROL 1,000 UNIT TABLET PO SCH (08:16)
[2018-07-07] MEDS: POLYETHYLENE GLYCOL 3350 17 GM PACKET PO SCH (08:16)
[2018-07-07] MEDS: SACCHAROMYCES BOULARDII 250 MG CAPSULE PO SCH (08:16)
[2018-07-07] MEDS: FAMOTIDINE 20 MG/50 ML 50 ML IV SCH (08:17)
[2018-07-07 08:27] VITALS: BP 136/79
[2018-07-07] MEDS ORDERED: DEXAMETHASONE 4 MG/ML VIAL IVP ONE (10:40)
[2018-07-07] MEDS ORDERED: fentaNYL 250 MCG/5 ML VIAL IVP ONE (10:40)
[2018-07-07] MEDS ORDERED: ePHEDrine 50 MG/ML AMP IVP ONE (10:40)
[2018-07-07] MEDS ORDERED: LIDOCAINE-MPF 2% 5 ML VIAL IM ONE (10:40)
[2018-07-07] MEDS ORDERED: ONDANSETRON 4 MG/2 ML VIAL IVP ONE (10:40)
[2018-07-07] MEDS ORDERED: MIDAZOLAM 2 MG/2 ML VIAL IVP ONE (10:40)
[2018-07-07] MEDS ORDERED: ROCURONIUM 50 MG/5 ML VIAL IVP ONE (10:40)
[2018-07-07] MEDS ORDERED: PROPOFOL 200 MG/20 ML VIAL IVP ONE (10:40)
--- NOTE | 2018-07-07 10:54 | Discharge Plan ---
"Discharge Plan for SNF / [facility] - Discharge Plan And Transition Orders Disposition: 03 SNF DC/Xfer Condition: Good Allergies and Adverse Reactions: Allergies Allergy/AdvReac Type Severity Reaction Status Date / Time tetracycline Allergy Unknown Verified 06/29/17 15:38 - SNF / RESIDENTIAL Transition Orders Admit to (Facility): [facility] Discharge Diagnosis: 1. Comminuted, displaced fracture of the left patella, status post open reduction internal fixation 2. Right impacted articular fracture of radial metaphysis, status post open reduction internal fixation with brachial radialis tenotomy 3. History of recurrent syncope, unknown etiology 4. Panic attacks 5. PTSD, OCD, anxiety, depression 6. Acute blood loss because of postoperative anemia, admission hemoglobin 13.3 with discharge hemoglobin 9.9, no transfusion needed 7. Hypothyroidism 8. Hyperlipidemia 9. Gait abnormality with loss of balance frequently Medicare Certification Statement: I certify that [facility] residential care is medically necessary on a continuing basis for any of the conditions for which she/he is receiving care during hospitalization. Notify PCP of admission and forward orders to primary provider for signature. Weight on admission and: Monthly Other Notification Orders: Call PCP immediately if patient develops dyspnea, chest pain/tightness or edema. House Bowel Program: Yes Additional Bowel Program Orders: If no BM after 2 days, nurse may give M.O.M. 30ml PO PRN and/or ducolax Supp 1 MA and/or LUIS 250mg P.O., and/or senna 1-2 tabs PO. On day 3 nurse may give repeat above order until residents constipation is resolved. Annual Influenza Vaccine (between May 05 and December 02): Yes Two-step PPD per [facility] [phone] or approved exception documents: Yes Lab Tests or X-ray Orders: CBC in 1 week Medication Orders: PLEASE REFER TO THE DISCHARGE MEDICATION LIST. Insulin Orders?: No - Medications New Prescriptions: oxyCODONE [Roxicodone] 10 mg PO Q4HR PRN #30 tablet PRN Reason: Pain 8 to 10 Famotidine 20 mg PO DAILY PRN #1 tablet PRN Reason: Indigestion Lorazepam [Ativan] 1 mg PO BID PRN #15 tablet PRN Reason: Anxiety Naproxen [Naprosyn] 500 mg PO BID PRN 30 Days tablet PRN Reason: Pain - Diet Type: Geriatric Texture: Regular Liquids: Thin May have monthly special meal: Yes - Therapies | Activity Therapy: Evaluation | Treat if indicated: PT, OT Rehabilitation Potential: Return to independent living Activity: Additional Comments (Nonweightbearing right upper extremity and left lower extremity. Encouraged to move fingers on right hand but not do any lifting or pushing with right hand. Knee immobilizer should be kept in place. Splint of hand should be kept clean and dry and intact. Do skin checks every shift at outer edges of immobilizer and dressing of right hand. Follow-up with orthopedic surgery on July 13 or July 16) Weight Bearing: No Weight (LLE and RUE) Extremities: NWBLLE Assistance Devices: Wheelchair, Walker Additional Instructions: This woman is a who is 100% service-connected and is service-connected for psychiatric disorder including PTSD, OCD, anxiety disorder, panic attacks. She is recently fired her psychiatrist. She has a undiagnosed disorder where she passes out suddenly. It is possible she has a seizure disorder or orthostatic syncope. But she has not followed up with neurology referral. She fell one more time in her bathroom and resulted in admission because she broke her right wrist and left knee. She has had open reduction and internal fixation of both of these fractures She has had 2 panic attacks in the postoperative setting. One day of fever in the postoperative day 0 setting. Has had no fever since. Main issues after surgery have been controlling her panic and tearfulne ss, and controlling her pain. Right now she is on oxycodone every 4 hours. I have added naproxen in the discharge setting."
--- NOTE | 2018-07-08 10:34 | DISCHARGE SUMMARY ---
Physician: Joselyn Cazares MD DATE OF ADMISSION: 07/01/2018 DATE OF DISCHARGE: 07/07/2018 DISCHARGE DIAGNOSES 1. Comminuted displaced fracture of the left patella, status post open reduction internal fixation. 2. Right impacted articular fracture of the radial metaphysis, status post open reduction internal fixation. 3. History of recurrent syncope, unknown etiology. 4. Panic attacks. 5. Acute blood loss because of postoperative anemia. 6. Hypothyroidism. 7. Gait ataxia with frequent falls. 8. Multiple psychiatric diagnoses, including posttraumatic stress disorder, obsessive-compulsive disorder, anxiety, depression. MEDICATIONS AT DISCHARGE 1. Tylenol 650 mg p.o. q.4 hours p.r.n. fever, pain, headache. 2. Oxycodone 10 mg p.o. q.4 hours p.r.n. pain. 3. Evekeo 20 mg p.o. q.p.m. 4. Bupropion sustained release 200 mg tab at 6 a.m. and 1500 hours. 5. Buspirone 15 mg tablet, 30 mg q.p.m. 6. Calcium carbonate 400 mg p.o. b.i.d. 7. Clomipramine 200 mg p.o. q. p.m. 8. Famotidine 200 mg p.o. daily. 9. Levothyroxine 75 mcg daily. 10. Ativan 1 mg p.o. b.i.d. p.r.n. anxiety. 11. Naprosyn 500 mg p.o. b.i.d. p.r.n. pain. 12. MiraLax 17 g p.o. q.3 days p.r.n. constipation. 13. Seroquel 400 mg p.o. daily. PRINCIPAL PROCEDURES 1. Cervical spine CT with no acute cervical spine fracture or listhesis. 2. Head CT. No acute intracranial abnormality. 3. Left knee x-ray with comminuted displaced fracture of the left patella with large joint effusion. 4. Comminuted intraarticular impaction fracture of the distal right radial metaphysis. 5. Chest CT. Healing nondisplaced fractures of the right 9th, 10th, 11th ribs; no focal consolidation or pleural effusion. 6. Elbow x-ray. Normal. 7. Upper extremity CT showing: Mildly comminuted displaced impacted intraarticular fracture of the distal radius that extends to the distal radial ulnar joint. Radiocarpal and mid carpal joint effusions. Fragments of the distal radius and lunate. Mildly comminuted and displaced ulnar styloid fracture. Scapholunate ligament injury. 8. Chest x-ray. Small lung volumes with bibasilar atelectasis or infiltrate, mild pulmonary vascular congestion. 9. Blood cultures x2 sets, negative from 07/05/2018. HOSPITAL COURSE: The patient is a 67-year-old female who has multiple psychiatric disorders, including depression, bipolar disorder, anxiety, PTSD. She is 100% service connected as a because of her psychiatric disability. Unfortunately, she tells that she recently fired her psychiatrist, and it is unclear how stable her psychiatric disorders are. In addition, she has syncopal episodes or episodes of loss of consciousness that are episodic. She has been evaluated by her primary care provider, Dr. Cherry, and has had an MRI of the head 03/19/2014, which was negative; 01/03/2017, which was negative. She then had an episode of syncope 06/29/2017 while she was shopping. She had sudden collapse with no warning. She suffered a subcortical hemorrhage of the left mid frontal area and a left radius and ulna fracture. Because of the hemorrhage, she was transferred to [place]. Subsequently, she had her fractures taken care of by [facility]. Even though she has been referred to Neurology, the patient has not followed up for evaluation of her syncope. She has documentation in the emergency rooms of [facility], and [facility] [place] with ER interaction and evaluation. With this most recent admission, she was in the bathroom where she fell. Not clear if she was describing no warning or that she tripped. She can be a vague historian and has been very emotional during the stay. She was placed in observation with the anticipation of her having surgery; however, because of delay in getting hardware, the patient had to be transitioned to inpatient status and was eventually operated on 07/04/2018 for open reduction internal fixation of the right wrist fracture and left patellar fracture. In the postoperative setting, she had episodes of confusion, panic. She would start crying out, yelling, saying, "Call 911." She felt that no one was taking care of her, that she was having right-sided chest pain where her ribs were, and no one was addressing that issue. She would also not remember that she had had surgery, that she agreed to placement to take care of her. Because of the right wrist fracture and left patellar fracture, she is relatively immobile and needs quite a bit of an assist for simple things such as eating or even getting out of the bed. Once up, she is easily mobile, but activities of daily living are quite difficult for her. Her is unable to take care of her at home, and he has his own medical problems. In the postoperative setting, she did have 1 day of fever. This was when she was on perioperative antibiotics. Subsequent to that, she has not had any fever. The day before discharge, [facility]. She said she was too tired to deal with their assessment personnel and wanted them to leave her alone so she could sleep. On the day of discharge, she agreed to be assessed by [facility], and she is now amenable to be [facility]ed [facility] for acute help with activities of daily living. Hopefully, Occupational Therapy can help her learn how to stand, use her left arm for simple tasks such as feeding herself or dressing herself. Orthopedics has left the request that they want her to be nonweightbearing on the left leg, nonweightbearing of the right wrist. They want her to avoid pulling and pushing with that right wrist. She can do fingertip range of motion. To not extend the left knee and keep the knee immobilizer in. Pain was moderately controlled. On the day of discharge, she said that sometimes the oxycodone did not last long enough at q.4 hours p.r.n. As such, I have added naproxen on the day of discharge for her to use in the senior care. Because of her anxiety during the stay, I did increase her Ativan from 1 mg p.o. daily p.r.n. to 1 mg p.o. b.i.d. p.r.n. PHYSICAL EXAMINATION VITALS: At discharge, temperature was 37.1, pulse 93, blood pressure 136/79, respirations 18, 97% on room air. GENERAL: She was sitting upright in her chair, intermittently tearful because she could not use her right hand to feed herself breakfast. In an effort to see if changing the food consistency would help her with eating, she was temporarily on a pureed diet. It did not seem to help her ability to use her left hand to eat and asked that she should probably go back on a regular diet. She is intermittently tearful, fearful. CHEST: She still continues to complain of right chest wall pain that is reproduced with palpation of touching those broken ribs. It is not clear if her rib fractures were obtained with the fall in the bathroom; they may have occurred prior to this current fall. LUNGS: Occasional atelectasis. When I have her do a deep cough, she cries out in pain because of the pleuritic part of her right rib cage, but it clears the crackles at the lung bases. She has no increased respiratory effort. HEART: Regular rate and rhythm without murmurs, rubs, or gallops. ABDOMEN: Exam is benign. EXTREMITIES: Without edema. The right arm is in dressing and in immobilizer. The left knee is in an immobilizer and dressing as well. The skin edges of both areas of these immobilizers are pink, and she has mobile fingers on the right hand. PSYCHIATRIC: She is alert and oriented to person, place, and time, but very emotionally labile and occasionally tearful and occasionally panic stricken. Greater than 30 minutes was spent in coordinating discharge. TD: 07/07/2018 13:38 VIMAL
== END 2018-07-07 13:17 | DRG 511 ==
LOC: EDUNIT# → ED 14:39 → MS2 16:51
PROVIDERS: ADMIT Family Medicine Sports Medicine; ATTEND Specialist
PROC: 0PSH04Z Reposition Right Radius with Internal Fixation Device, Open Approach (ICD-10-PCS; principal; 2018-07-04 07:30)
PROC: 0QSF04Z Reposition Left Patella with Internal Fixation Device, Open Approach (ICD-10-PCS; 2018-07-04 07:30)
DX: S09.90XA Unspecified injury of head, initial encounter (principal); S13.9XXA Sprain of joints and ligaments of unspecified parts of neck, initial encounter; S82.042A Displaced comminuted fracture of left patella, initial encounter for closed fracture; S52.571A Other intraarticular fracture of lower end of right radius, initial encounter for closed fracture; S20.211A Contusion of right front wall of thorax, initial encounter; M25.561 Pain in right knee; M25.521 Pain in right elbow; S52.611A Displaced fracture of right ulna styloid process, initial encounter for closed fracture; Y92.009 Unspecified place in unspecified non-institutional (private) residence as the place of occurrence of the external cause; S22.41XA Multiple fractures of ribs, right side, initial encounter for closed fracture; F41.0 Panic disorder [episodic paroxysmal anxiety]; D62 Acute posthemorrhagic anemia; S62.121A Displaced fracture of lunate [semilunar], right wrist, initial encounter for closed fracture; F90.9 Attention-deficit hyperactivity disorder, unspecified type; R26.89 Other abnormalities of gait and mobility; R50.82 Postprocedural fever; W18.30XA Fall on same level, unspecified, initial encounter; Y92.002 Bathroom of unspecified non-institutional (private) residence as the place of occurrence of the external cause; R55 Syncope and collapse; E03.9 Hypothyroidism, unspecified; R29.6 Repeated falls; R26.0 Ataxic gait; F43.10 Post-traumatic stress disorder, unspecified; F42.9 Obsessive-compulsive disorder, unspecified; F40.01 Agoraphobia with panic disorder; F31.9 Bipolar disorder, unspecified; F10.10 Alcohol abuse, uncomplicated; E78.5 Hyperlipidemia, unspecified; Z87.820 Personal history of traumatic brain injury; Z87.81 Personal history of (healed) traumatic fracture; Z91.81 History of falling; Z87.891 Personal history of nicotine dependence; Z79.899 Other long term (current) drug therapy; Z86.79 Personal history of other diseases of the circulatory system
CPT/HCPCS: 29125; 36415; 70450; 71045; 71250; 72125; 80053; 81001; 82330; 83605; 83690; 85025; 85610; 87040; 87086; 99283; 99285

== ENCOUNTER 2018-07-25 09:58 | Observation (INO) | payer MEDICARE, OTHER ==
[~2018-07-25 09:58] MED LIST changes: +BUPIVACAINE 0.25%-EPI 1:200000 PF 30 ML VIAL ONE; +BUPIVACAINE 0.5% PF 30 ML VIAL ONE; -ceFAZolin 2 GM/50 ML 2 GM/50 ML BAG IV ONE
[2018-07-25] MEDS ORDERED: LACTATED RINGERS 1,000 ML IV ONE ×2 (10:20→11:50)
[2018-07-25] MEDS ORDERED: ceFAZolin 2 GM/50 ML 2 GM/50 ML BAG IV ONE (10:25)
--- NOTE | 2018-07-25 10:32 | ANESTHESIA ---
Pre-Anesthesia VS, & Labs - Diagnosis Failed left patella ORIF - Procedure ORIF left patella revision Vital Signs: Temp Pulse Resp BP Pulse Ox 36.9 C 108 H 18 95/59 L 99 07/25/18 10:25 07/25/18 10:25 07/25/18 10:25 07/25/18 10:25 07/25/18 10:25 Height 5 ft Body Mass Index 25.4 - NPO >8 hours - Is Patient ?: No - Lab Results Lab results reviewed: Yes Home Medications and Allergies Allergies/Adverse Reactions: Allergies Allergy/AdvReac Type Severity Reaction Status Date / Time tetracycline Allergy Unknown Verified 06/29/17 15:38 Anes History & Medical History - Anesthetic History Anesthesia Complications: reports: Other-see comment (complains of being out of her mind for 3 days after last anesthetic) Family history of Anesthesia Complications: Denies Family history of Malignant Hyperthermia: Denies - Medical History Cardiovascular: reports: High cholesterol, Atrial fibrillation Pulmonary: reports: Pneumonia Gastrointestinal: reports: GI bleed, Chronic diarrhea, Chronic constipation, Hemorrhoids Urinary: reports: Incontinence, Nocturia, Frequency Neuro: reports: Headaches, Seizure disorder, Other (recurrent falls, was scheduled to see neurologist) Musculoskeletal: reports: None Endocrine/Autoimmune: reports: HyPOthyroidism Blood Disorders: reports: None Skin: reports: None Smoking Status: Never smoker - Surgical History General: 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, Other Gynecologic: Hysterectomy, Oophrectomy, Other Exam General: Alert, Oriented x3 Dental: WNL Mouth Opening: Greater than 4 Fingerbreadths Neck Mobility: Normal Mallampati classification: II Thyromental Distance: 4-6 cm Respiratory: Lungs clear Cardiovascular: Regular rate Mental/Cognitive Status: Alert/Oriented X3, Other (Patient extremely frustrated and angry regarding entire care situation, verbalizing her anger) Cognitive Status: Within normal limits Plan Anesthesia Type: Spinal Consent for Procedure(s) Verified and Reviewed: Yes Code Status: Attempt Resuscitation ASA classification: 2-Mild systemic disease Is this case an emergency?: No
[2018-07-25 10:49] LABS: BASOPHILS # (AUTO) 0.1 10^3/uL (0.0-0.1); BASOPHILS % (AUTO) 1.3 %; EOSINOPHILS # (AUTO) 0.2 10^3/uL (0.0-0.7); EOSINOPHILS % (AUTO) 2.8 %; HGB - HEMOGLOBIN 12.9 g/dL (12.0-16.0); LYMPHOCYTES # (AUTO) 2.1 10^3/uL (1.5-3.5); LYMPHOCYTES % (AUTO) 28.4 %; MEAN CORPUSCULAR HEMOGLOBIN 32.1 pg (27.0-31.0); MEAN CORPUSCULAR HGB CONC 33.4 g/dL (32.0-36.0); MEAN CORPUSCULAR VOLUME 96.1 fL (81.0-99.0); MONOCYTES # (AUTO) 0.7 10^3/uL (0.0-1.0); MONOCYTES % (AUTO) 9.4 %; NEUTROPHILS # (AUTO) 4.2 10^3/uL (1.5-6.6); NEUTROPHILS % (AUTO) 58.1 %; PLT - PLATELET COUNT 246 10^3/uL (130-450); RED CELL DISTRIBUTION WIDTH 14.8 % (12.0-15.0); WHITE BLOOD COUNT 7.3 x10^3/uL (4.8-10.8)
[2018-07-25 11:20] LABS: CALCIUM 8.1 mg/dL (8.5-10.3); CREATININE 0.9 mg/dL (0.4-1.0)
[2018-07-25] MEDS ORDERED: BUPIVACAINE 0.25%-EPI 1:200000 PF 30 ML VIAL SUBQ ONE ×2 (12:02→13:32)
[2018-07-25] MEDS ORDERED: PROPOFOL 200 MG/20 ML VIAL IVP ONE (12:48)
--- NOTE | 2018-07-25 13:58 | XRAY Report ---
Reason: ORIF LEFT PATELLA Procedure Date: 07/25/2018 Accession Number: [id number] / [id number] Procedure: XR - Knee 3 View LT CPT Code: FULL RESULT: EXAM: INTRAOPERATIVE LEFT KNEE RADIOGRAPHY EXAM DATE: 07/25/2018 01:10 PM. CLINICAL HISTORY: ORIF left patella. COMPARISON: KNEE 4 VIEW BILAT 07/01/2018 3:05 PM. TECHNIQUE: 4 views. FINDINGS: 4 intraoperative radiographs of the left knee focused on a fractured patella now undergoing tension band construct reconstruction are submitted for review. Images demonstrate wire placement and tension band construction with a final configuration that is without evidence of failure. IMPRESSION: Intraoperative imaging as described. RADIA
[2018-07-25] MEDS ORDERED: ONDANSETRON 4 MG/2 ML VIAL IVP PRN (14:15)
[2018-07-25] MEDS: oxyCODONE 5 MG TABLET PO PRN ×3 (14:53→23:27)
--- NOTE | 2018-07-25 16:13 | IMMEDIATE POSTOPERATIVE NOTE ---
Immediate Postoperative Note - Procedure Note Procedure Date: 07/25/18 Pre-Op Diagnosis: right patella fracture s/p orif Procedure: right patella revision orif, hardware removal Post-Op Diagnosis: same Primary Surgeon: Mikel Pot Pusher: AP Anesthesia Type: Local, Spinal Findings: Comminuted failed left patella open reduction internal fixation. Post reduction and revision fixation there is near anatomic alignment of the articular surface of the joint and stable construct. Complications: No complications Estimated Blood Loss (in cc): 50 Plan of Care: Strict nonweightbearing left lower extremity and right upper extremity. Dressing and brace to remain in place left lower extremity right upper extremity cast. Patient should have full assistance for transfers. Patient will be nonweightbearing left lower extremity and right upper extremity. She would be observed for pain management neuro checks and social work consultation for appropriate placement.
[2018-07-25] MEDS: MORPHINE 2 MG/ML CARPUJECT IVP PRN ×2 (16:28→21:10)
--- NOTE | 2018-07-25 16:42 | CONSULTATION NOTE ---
Referring Provider Name of Referring Provider:: Dr. Morin Consult Date: 07/25/18 Chief Complaint - Chief Complaint Chief Complaint: Post-op care and SNF placement difficulties, medically complexity of pt hx. History of Present Illness - Admitted From Admitted From:: direct, day surgery - History Obtained From Records Reviewed: yes History obtained from: chart review, patient Exam Limitations: none - History of Present Illness HPI Comment/Other: Nika Frazier is a 68-year old female with a complex past medical history of PTSD, OCD, bipolar, anxiety, agoraphobia, and recent falls. [place] recent left patellar repair and right wrist repair, but had a planned outpatient surgery advised by our orthopedic surgeons after at least 2 accidental falls at the half-way facility. She is now post op and the Hospitalist team will be on her case to assist with her possible difficult placement, medication management given the complexity of her home meds, and overall medical management. History - Past Medical History Cardiovascular: reports: High cholesterol, Atrial fibrillation Respiratory: reports: Asthma, Pneumonia Neuro: reports: Dementia (short term memory loss, word finding difficulties), Headaches, Seizure disorder, Other (recurrent falls, was scheduled to see neurologist) Endocrine/Autoimmune: reports: HyPOthyroidism GI: reports: GI bleed, Chronic diarrhea, Chronic constipation, Hemorrhoids MEDICAL BILLING CLERK: reports: Ectopic , Ovarian cysts : reports: Incontinence, Nocturia, Frequency HEENT: reports: Chronic vision loss, Chronic sinusitis Psych: reports: Depression, Anxiety, Bipolar disorder, Panic attacks, Post traumatic stress disorder, Obsessive compulsive disorder, Eating disorder Musculoskeletal: reports: Osteoarthritis, Osteoporosis, Fatigue Derm: reports: None MRSA Hx?: No - Past Surgical History General: reports: 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, Other Ortho: reports: Knee replacement /MEDICAL BILLING CLERK: reports: Hysterectomy, Oophrectomy, Other - Family & Social History Family History: Mother: , Cancer (Brother past away @ 50 2/2 heart disease. Lifestyle related per pt), Father: , Cancer, Brother: , Cancer Family History Comment/Other: Pt one of 7 kids, knows limited info Re: FH Living arrangement: assisted - Substance History Use: Uses substance without health or social issues: NONE, Anxiolytic, Psychoactive Drug (High probability that falls are medicine related - but this has not yet been diagnosed) Abuse: Recurrent use of substance despite neg consequences: NONE Dependence: Experiences withdrawal or developed tolerances: NONE - POLST Patient has POLST: No POLST Status: Full Code Meds/Allgy - Home Medications Home Medications: Ambulatory Orders Medication Instructions Recorded Confirmed Buspirone HCl 30 mg PO QPM #0 07/07/18 07/25/18 Clomipramine HCl 200 mg PO QPM #0 07/07/18 07/25/18 Levothyroxine Sodium 75 mcg PO QDAC #0 07/07/18 07/25/18 Lorazepam [Ativan] 1 mg PO BID PRN #15 tablet 07/07/18 07/25/18 Polyethylene Glycol 3350 [Miralax] 17 gm PO Q3D #0 07/07/18 07/25/18 Quetiapine Fumarate [Seroquel] 400 mg PO DAILY PM #0 07/07/18 07/25/18 buPROPion HCl [Bupropion HCl Sr] 200 mg PO 0600,1500 #0 07/07/18 07/25/18 oxyCODONE [Roxicodone] 10 mg PO Q4HR PRN #30 tablet 07/07/18 07/25/18 - Allergies Allergies/Adverse Reactions: Allergies Allergy/AdvReac Type Severity Reaction Status Date / Time tetracycline Allergy Unknown Verified 06/29/17 15:38 Review of Systems - Constitutional Constitutional: reports: Fatigue, Weakness - Eyes Eyes: reports: Vision loss - Ears, Nose & Throat Ears, Nose & Throat: reports: Nasal congestion - Cardiovascular Cariovascular: reports: Decr. exercise tolerance - Respiratory Respiratory: reports: SOB with exertion - Gastrointestinal Gastrointestinal: reports: Nausea, Reflux/heartburn - Genitourinary Genitourinary: reports: Frequency, Nocturia - Musculoskeletal Musculoskeletal: reports: Muscle aches - Neurological Neurological: reports: General weakness, Headache, Memory problems, Pre-existing deficit, Abnormal gait - Psychiatric Psychiatric: reports: Depression, Anxiety, Other (PTSD,bipolar, agoraphobia) - All Other Systems All Other Systems: reports: Reviewed and negative Exam - Vital Signs Reviewed Vital Signs: Yes Vital Signs: Vital Signs x48h Temp Pulse Pulse Resp BP BP Pulse Ox 07/25/18 15:19 36.9 C 89 19 133/68 H 100 07/25/18 14:49 36.8 C 88 18 126/74 99 07/25/18 14:30 38.2 C H 87 19 127/82 H 100 07/25/18 14:15 89 13 123/74 100 07/25/18 14:10 85 20 119/72 99 07/25/18 14:05 85 11 L 119/68 98 07/25/18 14:00 37.4 C 85 17 119/69 98 07/25/18 13:55 86 13 116/64 98 07/25/18 13:50 87 13 113/52 L 100 07/25/18 13:44 36.6 C 87 19 113/68 100 07/25/18 10:25 36.9 C 108 H 18 95/59 L 99 - Physical Exam General Appearance: positive: No acute distress, Alert Eyes Bilateral: positive: PERRL ENT: positive: Pharynx nml, No signs of dehydration Neck: positive: Nml inspection, No JVD, Trachea midline Respiratory: positive: Chest non-tender, No respiratory distress, Breath sounds nml Cardiovascular: positive: Regular rate & rhythm, No gallop, Systolic murmur Peripheral Pulses: positive: 2+ Abdomen: positive: Non-tender, No distention, Other (rounded, soft) Back: positive: Nml inspection Skin: positive: No rash, Warm, Dry, Pallor Extremities: positive: Pedal edema, Joint swelling, Other (normal post-op swelling to left knee) Neurologic/Psychiatric: positive: Oriented x3, CN's nml (2-12), Weakness, Depressed mood/affect Reflexes: Bicep (R): 2+, Bicep (L): 2+ Conclusion/Plan - Diagnosis Diagnosis: Fracture of unsp carpal bone, right wrist, init for clos fx (S62.101A). Unsp fracture of left patella, init for clos fx (S82.002A). Bipolar disorder, unspecified (F31.9). Post-traumatic stress disorder, unspecified (F43.10). Panic disorder [episodic paroxysmal anxiety] (F41.0). Mental disorder, not otherwise specified (F99). Repeated falls (R29.6). Syncope and collapse (R55). Obsessive-compulsive disorder, unspecified (F42.9) - Plan Plan: After spending an extended amount of time for counseling, history review, examination, and to address the patient's concerns; The plan will be to work with social work in finding appropriate placement to prevent harm to her new post-op left knee- of which she should bear NO weight. Make appropriate adjustments to meds or treatments based on patient's symptoms or any post op complications. - Lab Results Lab results reviewed: Yes Fish Bones: 07/25/18 10:45 07/25/18 11:07 - Diagnostic Imaging Results Diagnostic Imaging Results: positive: Prelim report reviewed
[2018-07-25] MEDS ORDERED: POLYETHYLENE GLYCOL 3350 17 GM PACKET PO SCH (17:00)
[2018-07-25] MEDS: ceFAZolin 1 GM in SODIUM CHLORIDE 0.9% MINIBAG 100 ML IV SCH (19:11)
[2018-07-25] MEDS: QUEtiapine 100 MG TABLET PO SCH (21:11)
[2018-07-25] MEDS: busPIRone 5 MG TABLET PO SCH (21:12)
[2018-07-25] MEDS: CLOMIPRAMINE HCL 200 MG PO SCH (21:17)
[2018-07-25] MEDS: LORazepam 1 MG TABLET PO PRN (23:47)
[2018-07-26] MEDS ORDERED: SODIUM CHLORIDE FLUSH 0.9% 10 ML SYRINGE ONE ×3 (00:57→05:56)
[2018-07-26] MEDS: MORPHINE 2 MG/ML CARPUJECT IVP PRN ×2 (01:00→06:09)
[2018-07-26] MEDS: oxyCODONE 5 MG TABLET PO PRN ×4 (03:40→21:34)
[2018-07-26] MEDS: ceFAZolin 1 GM in SODIUM CHLORIDE 0.9% MINIBAG 100 ML IV SCH (03:41)
[2018-07-26] MEDS: buPROPion SR 100 MG TABLET PO SCH ×2 (06:07→15:10)
[2018-07-26] MEDS: LEVOTHYROXINE 75 MCG TABLET PO SCH (06:07)
[2018-07-26] MEDS ORDERED: SODIUM CHLORIDE FLUSH 0.9% 10 ML SYRINGE IVP PRN (08:43)
--- NOTE | 2018-07-26 08:51 | PROVIDER PROGRESS NOTE ---
Subjective - Prog Note Date Prog Note Date: 07/26/18 - Subjective Pt reports feeling: Improved (Patient says that she had some of the more severe pain that she can recall last evening but that she is better this morning and more comfortable.) Objective - Vital Signs/Intake & Output Vital Signs: Vital Signs x48h Temp Pulse Resp BP Pulse Ox 07/26/18 07:42 37.1 C 97 18 106/69 99 07/26/18 03:19 37.1 C 97 18 115/75 96 Intake & Output: Intake & Output 07/23/18 07/24/18 07/25/18 07/26/18 23:59 23:59 23:59 23:59 Intake Total 1156 450 Output Total 550 900 Balance 606 -450 - Lab Results Fish Bones: 07/25/18 10:45 07/25/18 11:07 Other Labs: Lab Results x24hrs 07/25/18 07/25/18 Range/Units 11:07 10:45 WBC 7.3 (4.8-10.8) x10^3/uL RBC 4.00 L (4.20-5.40) 10^6/uL Hgb 12.9 (12.0-16.0) g/dL Hct 38.5 (37.0-47.0) % MCV 96.1 (81.0-99.0) fL MCH 32.1 H (27.0-31.0) pg MCHC 33.4 (32.0-36.0) g/dL RDW 14.8 (12.0-15.0) % Plt Count 246 (130-450) 10^3/uL MPV 7.0 L (7.9-10.8) fL Neut # (Auto) 4.2 (1.5-6.6) 10^3/uL Lymph # (Auto) 2.1 (1.5-3.5) 10^3/uL [place] # (Auto) 0.7 (0.0-1.0) 10^3/uL Eos # (Auto) 0.2 (0.0-0.7) 10^3/uL Baso # (Auto) 0.1 (0.0-0.1) 10^3/uL Absolute Nucleated RBC 0.00 x10^3/uL Nucleated RBC % 0.0 /100WBC Sodium 136 (135-145) mmol/L Potassium 4.3 (3.5-5.0) mmol/L Chloride 105 (101-111) mmol/L Carbon Dioxide 24 (21-32) mmol/L Anion Gap 7.0 (6-13) BUN 23 H (6-20) mg/dL Creatinine 0.9 (0.4-1.0) mg/dL Estimated GFR (MDRD) 62 L (>89) Glucose 83 (70-100) mg/dL Calcium 8.1 L (8.5-10.3) mg/dL - Other Results/Comments Other Results/Comments: Patient's left lower extremity is in a postoperative dressing with soft roll bulky Caro dressing from the toes to the thigh with Dereck wrap and knee immobilizer/hinged knee brace locked in extension. She is able to flex and extend her toes and ankle comfortably. She has mild to moderate tenderness about the knee and retinacular regions calf itself nontender No calf pain with passive ankle range of motion. Dressing clean dry and intact. Assessment/Plan - Problem List (1) Left patella fracture Impression: Doing well postoperative day #1 status post left patella revision open reduction internal fixation. Patient was painful last evening but says she is more comfortable today. She is comfortable in speaking and speaks in a normal tone and is appreciative of her care. We will plan on continuing precautions with nonweightbearing left lower extremity and right upper extremity. She will start aspirin DVT prophylaxis today. She will of calf SCD on the contralateral right side. She will be out of bed with physical therapy with full assist for transfers. She will use his incentive spirometer every hour while awake. Decubitus precautions. Analgesia as necessary. [facility] facility placement by social work. Continued medical management by hospitalist team. Qualifiers: Encounter type: subsequent encounter Fracture type: closed Fracture mo rphology: comminuted Fracture alignment: displaced
[2018-07-26] MEDS: POLYETHYLENE GLYCOL 3350 17 GM PACKET PO SCH (08:52)
[2018-07-26] MEDS: DOCUSATE SODIUM 250 MG CAPSULE PO SCH (08:52)
[2018-07-26] MEDS ORDERED: POLYETHYLENE GLYCOL 3350 17 GM PACKET PO SCH (09:00)
[2018-07-26] MEDS: ASPIRIN EC 81 MG TABLET PO SCH (09:14)
[2018-07-26] MEDS: SODIUM CHLORIDE FLUSH 0.9% 10 ML SYRINGE IVP SCH ×2 (09:16→20:12)
--- NOTE | 2018-07-26 11:41 | OPERATIVE REPORT ---
DATE OF SERVICE: 07/25/2018 Physician: Kehinde Morin MD SURGEON: Kehinde Morin MD QUALITY IMPROVEMENT SPECIALIST: None. ANESTHESIOLOGIST: Jose Juan Richards CRNA ANESTHESIA: Spinal with 30 mL 0.25% Marcaine with epinephrine local on the left knee. FLUIDS: 1300 mL lactated Ringer's, preoperative Ancef weight-based 2 grams IV. ORTHOPEDIC IMPLANTS: 1. 18-gauge wire as well as 0.062 K-wire x2 as well. 2. #5 FiberWire. ESTIMATED BLOOD LOSS: Less than 50 mL COMPRESSION DEVICE: Contralateral right calf SCD boot. PREOPERATIVE DIAGNOSIS: Left patella fracture, status post previous left patella open reduction and internal fixation. POSTOPERATIVE DIAGNOSIS: Left patella fracture, status post previous left patella open reduction and internal fixation. PROCEDURE 1. Left patella revision open reduction and internal fixation. 2. Left patella removal of hardware K-wires and an 18-gauge wire. INTRAOPERATIVE COMPLICATIONS: None noted. INTRAOPERATIVE FINDINGS: The patient was noted to have a comminuted displaced failed open reduction internal fixation status post fall. This shows two longitudinal K-wires with cerclage 18-gauge wire and additional comminution of the distal fragment. There was previously noted retained small modular hand screw that remains well positioned in the lateral and proximal lateral fragments. Post-reducti on there appears to be near anatomic reduction of the joint cartilage and approximation of the nonart icular bony portions with good integrity of the construct, which is a tension band construct with a c erclage FiberWire. PROCEDURE: On 07/25/2018, patient was identified in the preoperative care unit. She identifies her left knee as the operative site. This was signed by the operating surgeon. The patient received IV weight-based antibiotics. Spinal anesthesia was administered. Once the patient was brought to the o perating room sedation used as appropriate. The patient was placed supine on the operating table. H ead, neck and extremities placed in anatomically comfortable and safe position to avoid peripheral ne rve stretch and compression. The patient has a well-padded tourniquet placed high on the left thigh, taking care to avoid any trauma to the genitalia. The patient's left knee was then prepared. Minim al residual eschar and dry skin is removed from the previously noted anterior knee incision. At this point it was pre-scrubbed with chlorhexidine solution and then prepped and draped in the usual steri le fashion with ChloraPrep. At this point, surgical pause identifying the left knee as the operative site. At this point, the previous incision was re-incised and extended slightly proximally and dist ally. The skin edges are resected and curetted as well as rongeured in the subcutaneous tissues to r emove some fibrinous scar tissue and freshen the skin edges. At this point, pulsatile lavage was use d for copious irrigation and then dissection was carried out around the patella circumferentially. F racture was identified. Hematoma was evacuated. Hardware is removed by cutting the ends of the K-wi res and then pulling them out with minimizing soft tissue damage. Cerclage wire was unwound and then threaded out. The modular hand screw was left as it remains in place. At this point, after copious irrigation and freshening up of the fracture edges, tenaculum clamp helps reduce the articular carti jabari, which was near anatomic at the apex of the patella, and then 2 longitudinal K-wires were then p laced. The position of these wires was modified to go slightly medially and one a bit more anterior than the other given the poor quality of the distal bone fragment. Once these were placed, then an 1 8-gauge cerclage wire is placed, adjacent to the bone and threaded past the adjacent quad or patellar tendon using a 16-gauge Angiocath. Once this is performed then medial and lateral aspects of this w martínez are twisted with tension placed thereby completing the tension band construct. This achieved exc ellent compression across the fracture site and maintenance of the reduction. At this point, the twi sted portions of the wires are bent inward to avoid later irritation of the subcutaneous tissues and the residual wire was cut and then the medial wire bent inward as well. At this point, the K-wires a re then bent using a narrow tip sucker such that even if they were to rotate they would not, or be le ss likely to cause soft tissue irritation. At this point, once they are bent they are pointed finishing machine tender iorly into the soft tissues and then oversewn using heavy Vicryl suture to decrease the risk of rotat ion and irritation. At this point, cerclage #5 FiberWire was placed around the patella for additiona l fixation. The suture limb was cut and then oversewn. At this point, copious pulsatile lavage irri gation was performed, and then the skin was ultimately closed in a layered fashion using 0 Vicryl, 3- 0 Vicryl, and interrupted nylon suture. Local anesthetic was infused. It should be noted that copio us irrigation, hemostasis achieved at the knee level. Of note, tourniquet was used during the case. Esmarch was used prior to incision and taken down as i ndicated in nursing report. This was tourniquet time less than 2 hours. At this point, the skin was washed and dried. Large Xeroform was placed. Dry sterile dressing was p laced. Soft roll and then the patient was placed in a bulky Caro dressing from toe to thigh with Ac e wrap and Sof-Rol followed by a long hinged knee brace locked in extension. The patient tolerated the procedure well. Instrument and sponge counts were correct. The patient wa s transferred to recovery room in stable condition. She will be nonweightbearing on the left lower e xtremity. She will avoid active knee extension. She will be placed on aspirin for DVT prophylaxis o n the morning of postoperative day #1 with SCD boot to contralateral right side. She will have full assistance as she is nonweightbearing right upper extremity as well and be admitted for observation a nd [facility] facility placement. Analgesia control in the meantime and medical management. The patient will be on perioperative antibiotics for 24 hours and appropriate analgesia. TD: 07/26/2018 10:17
--- NOTE | 2018-07-26 14:58 | PROVIDER PROGRESS NOTE ---
Subjective - Prog Note Date Prog Note Date: 07/26/18 Prog Note Time: 14:57 - Subjective Pt reports feeling: Improved Subjective: Nika complains of feeling more tired today and also feels chilly at times. She denies shortness of breath, nausea, vomiting, diarrhea, a rash or chest pain. Current Medications - Current Medications Current Medications: Active Medications Acetaminophen (Tylenol) 650 mg PO Q4HR PRN PRN Reason: Pain or Fever > 38C (100.4F) Last Admin: 07/27/18 05:44 Dose: 650 mg Aspirin (Ecotrin) 162 mg PO DAILY [facility] Last Admin: 07/26/18 09:14 Dose: 162 mg Bupropion HCl (Wellbutrin Sr) 200 mg PO 0600,1500 [facility] Last Admin: 07/27/18 05:53 Dose: 200 mg Buspirone HCl (Buspar) 30 mg PO QPM [facility] Last Admin: 07/26/18 20:12 Dose: 30 mg Docusate Sodium (Colace 250mg Capsule) 250 - 500 mg PO DAILY [facility] Last Admin: 07/26/18 08:52 Dose: 250 mg Levothyroxine Sodium (Synthroid) 75 mcg PO QDAC [facility] Last Admin: 07/27/18 06:41 Dose: 75 mcg Lorazepam (Ativan) 1 mg PO BID PRN PRN Reason: Anxiety Last Admin: 07/25/18 23:47 Dose: 1 mg Morphine Sulfate (Morphine (Carpuject)) 1 - 2 mg IVP Q4HR PRN PRN Reason: PAIN Last Admin: 07/26/18 06:09 Dose: 2 mg Ondansetron HCl (Zofran Inj) 4 mg IVP Q6HR PRN PRN Reason: Nausea / Vomiting Oxycodone HCl (Roxicodone) 5 - 10 mg PO Q4HR PRN PRN Reason: PAIN Last Admin: 07/26/18 03:40 Dose: 10 mg Oxycodone HCl (Roxicodone) 10 mg PO Q4HR PRN PRN Reason: Pain 8 to 10 Last Admin: 07/26/18 21:34 Dose: 10 mg (Clomipramine Hcl [ Clomipramine Hcl] 200 Mg) Tab 1 each PO QPM [facility] Last Admin: 07/26/18 20:13 Dose: Not Given Polyethylene Glycol (Miralax) 17 gm PO DAILY [facility] Last Admin: 07/26/18 08:52 Dose: 17 gm Quetiapine Fumarate (Seroquel) 400 mg PO QPM [facility] Last Admin: 07/26/18 20:12 Dose: 400 mg Sodium Chloride (Normal Saline Flush 0.9%) 10 ml IVP PRN PRN PRN Reason: NEEDED PER PROVIDER ORDERS Sodium Chloride (Normal Saline Flush 0.9%) 10 ml IVP 0100,0900,1700 [facility] Last Admin: 07/27/18 00:09 Dose: 10 ml Objective - Vital Signs/Intake & Output Vital Signs: Vital Signs x48h Temp Pulse Pulse Resp BP Pulse Ox 07/26/18 13:11 37.1 C 90 18 96 07/26/18 13:08 37.6 C H 96 18 100/65 95 07/26/18 07:42 37.1 C 97 18 106/69 99 Intake & Output: Intake & Output 07/23/18 07/24/18 07/25/18 07/26/18 23:59 23:59 23:59 23:59 Intake Total 1156 1250 Output Total 550 1250 Balance 606 0 - Lab Results Fish Bones: 07/25/18 10:45 07/25/18 11:07 Assessment/Plan - Problem List (1) Fever Impression: The patient has now developed a fever of 38.2, so a full work up including a chest x-ray, UA, blood cultures and a lactic acid level will be obtained. On exam the patient does admit to intermittent sweats and chills today with continued lethargy. She states that she figured that this was due to her having just had surgery. Plan: Order septic work up, give tylenol for symptom control, obtain UA with straight cath and monitor vital signs. (2) Complication of surgical and medical care, unspecified, sequela Impression: The patient was just discharged on 07/19/18 after surgical repair of her right wrist and left patella (knee), but unfortunately has had at least 2 accidental falls while at the [facility]. During an out patient follow up with orthopedic surgery, it was discovered that she had re-injured her surgical left knee repair, which required a revision. She is now post op day #1 from her L knee repair. Plan: Continue to search for appropriate level of care, next site of care. Continue post-op care. (3) Left patella fracture Impression: The patient has re-injured her original left knee surgical site after at least 2 falls at the [facility]. It has been recommended that she not return to this situation. Physical therapy disagrees with an evaluation, so we are making our best efforts to provide support. The surgeon and nursing are also recommending a PT evaluation. Plan: Continue post op care and re-order a PT evaluation in the morning. Qualifiers: Encounter type: subsequent encounter Fracture type: closed Fracture morphology: comminuted Fracture alignment: displaced (4) Falls frequently Impression: Even before this episode in which the patient fell at home, her falls in general have become more and more frequent. The patient states that she is a "medical mystery" as she has been worked up for this in the past. Plan: Continue fall precautions, and attempt a PT evaluation tomorrow. (5) Psychiatric disorder Impression: The patient states that she as "every psychiatric disorder other than schizophrenia", and remains on her usual home medication schedule. Plan: Monitor mood and mental status. (6) Right wrist fracture Impression: The patient was discharged from the hospital on07/19/18 after fracturing her right wrist. She now has a red cast on her right arm that covers most of her hand as well. She should put NO weight on this during transfers which is why PT evaluation is necessary. Plan: Continue to provide good transfer techniques despite the lack of a PT evaluation. Qualifiers: Encounter type: subsequent encounter Fracture type: closed (7) Atrial fibrillation Impression: The patient denies a history of this, but this has been charted. She has regular heart sounds today on exam. Plan: Continue to monitor. Qualifiers: Atrial fibrillation type: unspecified Qualified Code(s): I48.91 - Unspecified atrial fibrillation
[2018-07-26] MEDS: ACETAMINOPHEN 325 MG TABLET PO PRN (18:22)
[2018-07-26 18:46] LABS: BILIRUBIN,URINE NEGATIVE (NEGATIVE); GLUCOSE, URINE (UA) NEGATIVE (NEGATIVE); KETONES,URINE (UA) NEGATIVE (NEGATIVE); LEUKOCYTE ESTERASE, URINE NEGATIVE (NEGATIVE); NITRITE,URINE NEGATIVE (NEGATIVE); OCCULT BLOOD,URINE TRACE-LYSE (NEGATIVE); PROTEIN,URINE NEGATIVE (NEGATIVE); UROBILINOGEN,URINE 0.2 (NORMAL) E.U./dL (NORMAL)
[2018-07-26 18:56] LABS: BACTERIA,URINE None Seen /HPF (None Seen); CLARITY,URINE CLEAR (CLEAR); RBC,URINE 0-5 /HPF (0-5); SQUAMOUS EPITHELIAL CELL,UR NONE SEEN (<= Few)
--- NOTE | 2018-07-26 19:26 | XRAY Report ---
Reason: febrile, cough Procedure Date: 07/26/2018 Accession Number: [id number] / [id number] Procedure: XR - Chest 1 View X-Ray CPT Code: 64265 FULL RESULT: EXAM: CHEST RADIOGRAPHY EXAM DATE: 07/26/2018 06:41 PM. CLINICAL HISTORY: Febrile, cough. COMPARISON: CHEST 1 VIEW 07/05/2018 12:32 AM. TECHNIQUE: 1 view. FINDINGS: Lungs/Pleura: Linear right perihilar opacity representing atelectasis or scarring. No focal consolidation or evidence of edema. No pleural effusion or pneumothorax. Mediastinum: Within exam limitations, the cardiomediastinal contour is normal. Other: The bones are unremarkable. IMPRESSION: No acute cardiopulmonary abnormality. RADIA
[2018-07-26] MEDS: QUEtiapine 100 MG TABLET PO SCH (20:12)
[2018-07-26] MEDS: busPIRone 5 MG TABLET PO SCH (20:12)
[2018-07-26] MEDS: CLOMIPRAMINE HCL 200 MG PO SCH (20:13)
[2018-07-27] MEDS: SODIUM CHLORIDE FLUSH 0.9% 10 ML SYRINGE IVP SCH ×2 (00:09→08:13)
[2018-07-27] MEDS: ACETAMINOPHEN 325 MG TABLET PO PRN ×2 (05:44→10:56)
[2018-07-27] MEDS: buPROPion SR 100 MG TABLET PO SCH ×2 (05:53→14:19)
[2018-07-27] MEDS: LEVOTHYROXINE 75 MCG TABLET PO SCH (06:41)
[2018-07-27 07:37] LABS: ALBUMIN 2.8 g/dL (3.2-5.5); ALBUMIN/GLOBULIN RATIO 0.9 (1.0-2.2); BILIRUBIN,TOTAL 0.7 mg/dL (0.2-1.0); CALCIUM 8.2 mg/dL (8.5-10.3); CREATININE 0.7 mg/dL (0.4-1.0); MAGNESIUM 2.2 mg/dL (1.7-2.8); PHOSPHORUS 3.3 mg/dL (2.5-4.6)
[2018-07-27 07:42] LABS: BASOPHILS % (AUTO) 0.5 %; EOSINOPHILS # (AUTO) 0.2 10^3/uL (0.0-0.7); EOSINOPHILS % (AUTO) 2.4 %; LYMPHOCYTES # (AUTO) 1.3 10^3/uL (1.5-3.5); LYMPHOCYTES % (AUTO) 17.2 %; MEAN CORPUSCULAR HEMOGLOBIN 32.5 pg (27.0-31.0); MEAN CORPUSCULAR HGB CONC 33.4 g/dL (32.0-36.0); MEAN CORPUSCULAR VOLUME 97.3 fL (81.0-99.0); MEAN PLATELET VOLUME 7.4 fL (7.9-10.8); MONOCYTES # (AUTO) 0.9 10^3/uL (0.0-1.0); MONOCYTES % (AUTO) 11.8 %; NEUTROPHILS # (AUTO) 5.1 10^3/uL (1.5-6.6); NEUTROPHILS % (AUTO) 68.1 %; PLT - PLATELET COUNT 175 10^3/uL (130-450); RED BLOOD COUNT 3.39 10^6/uL (4.20-5.40); RED CELL DISTRIBUTION WIDTH 14.4 % (12.0-15.0); WHITE BLOOD COUNT 7.4 x10^3/uL (4.8-10.8)
[2018-07-27] MEDS: DOCUSATE SODIUM 250 MG CAPSULE PO SCH (08:13)
[2018-07-27] MEDS: ASPIRIN EC 81 MG TABLET PO SCH (08:13)
[2018-07-27] MEDS: POLYETHYLENE GLYCOL 3350 17 GM PACKET PO SCH (08:13)
--- NOTE | 2018-07-27 08:36 | PROVIDER PROGRESS NOTE ---
Subjective - Prog Note Date Prog Note Date: 07/27/18 - Subjective Pt reports feeling: No change (Patient says comfortable if not moving.) Subjective: patient says no sig pain if not moving. appreciate events above/ fever Objective - Vital Signs/Intake & Output Vital Signs: Vital Signs x48h Temp Pulse Resp BP Pulse Ox 07/27/18 07:56 36.9 C 92 18 101/63 95 07/27/18 05:52 97 102/59 L Intake & Output: Intake & Output 07/24/18 07/25/18 07/26/18 07/27/18 23:59 23:59 23:59 23:59 Intake Total 1156 2350 Output Total 550 1800 1600 Balance 606 550 -1600 - Lab Results Fish Bones: 07/27/18 07:16 07/27/18 07:16 Other Labs: Lab Results x24hrs 07/27/18 07/27/18 07/27/18 Range/Units 07:16 07:16 07:16 WBC 7.4 (4.8-10.8) x10^3/uL RBC 3.39 L (4.20-5.40) 10^6/uL Hgb 11.0 L (12.0-16.0) g/dL Hct 33.0 L (37.0-47.0) % MCV 97.3 (81.0-99.0) fL MCH 32.5 H (27.0-31.0) pg MCHC 33.4 (32.0-36.0) g/dL RDW 14.4 (12.0-15.0) % Plt Count 175 (130-450) 10^3/uL MPV 7.4 L (7.9-10.8) fL Neut # (Auto) 5.1 (1.5-6.6) 10^3/uL Lymph # (Auto) 1.3 L (1.5-3.5) 10^3/uL [place] # (Auto) 0.9 (0.0-1.0) 10^3/uL Eos # (Auto) 0.2 (0.0-0.7) 10^3/uL Baso # (Auto) 0.0 (0.0-0.1) 10^3/uL Absolute Nucleated RBC 0.00 x10^3/uL Nucleated RBC % 0.0 /100WBC Sodium 135 (135-145) mmol/L Potassium 4.4 (3.5-5.0) mmol/L Chloride 103 (101-111) mmol/L Carbon Dioxide 25 (21-32) mmol/L Anion Gap 7.0 (6-13) BUN 21 H (6-20) mg/dL Creatinine 0.7 (0.4-1.0) mg/dL Estimated GFR (MDRD) 83 L (>89) Glucose 118 H (70-100) mg/dL Lactic Acid 1.3 (0.5-2.2) mmol/L Calcium 8.2 L (8.5-10.3) mg/dL Phosphorus 3.3 (2.5-4.6) mg/dL Magnesium 2.2 (1.7-2.8) mg/dL Total Bilirubin 0.7 (0.2-1.0) mg/dL AST 25 (10-42) IU/L ALT 28 (10-60) IU/L Alkaline Phosphatase 109 (42-121) IU/L Total Protein 6.0 L (6.7-8.2) g/dL Albumin 2.8 L (3.2-5.5) g/dL Globulin 3.2 (2.1-4.2) g/dL Albumin/Globulin Ratio 0.9 L (1.0-2.2) Urine Color Urine Clarity (CLEAR) Urine pH (5.0-7.5) PH Ur Specific [place] (1.002-1.030) Urine Protein (NEGATIVE) mg/dL Urine Glucose (UA) (NEGATIVE) mg/dL Urine Ketones (NEGATIVE) mg/dL Urine Occult Blood (NEGATIVE) Urine Nitrite (NEGATIVE) Urine Bilirubin (NEGATIVE) Urine Urobilinogen (NORMAL) E.U./dL Ur Leukocyte Esterase (NEGATIVE) Urine RBC (0-5) /HPF Urine WBC (0-5) /HPF Ur Squamous Epith Cells (<= Few) Urine Bacteria (None Seen) /HPF Urine Culture Comments 07/26/18 07/26/18 Range/Units 19:00 18:30 WBC (4.8-10.8) x10^3/uL RBC (4.20-5.40) 10^6/uL Hgb (12.0-16.0) g/dL Hct (37.0-47.0) % MCV (81.0-99.0) fL MCH (27.0-31.0) pg MCHC (32.0-36.0) g/dL RDW (12.0-15.0) % Plt Count (130-450) 10^3/uL MPV (7.9-10.8) fL Neut # (Auto) (1.5-6.6) 10^3/uL Lymph # (Auto) (1.5-3.5) 10^3/uL [place] # (Auto) (0.0-1.0) 10^3/uL Eos # (Auto) (0.0-0.7) 10^3/uL Baso # (Auto) (0.0-0.1) 10^3/uL Absolute Nucleated RBC x10^3/uL Nucleated RBC % /100WBC Sodium (135-145) mmol/L Potassium (3.5-5.0) mmol/L Chloride (101-111) mmol/L Carbon Dioxide (21-32) mmol/L Anion Gap (6-13) BUN (6-20) mg/dL Creatinine (0.4-1.0) mg/dL Estimated GFR (MDRD) (>89) Glucose (70-100) mg/dL Lactic Acid 2.4 H (0.5-2.2) mmol/L Calcium (8.5-10.3) mg/dL Phosphorus (2.5-4.6) mg/dL Magnesium (1.7-2.8) mg/dL Total Bilirubin (0.2-1.0) mg/dL AST (10-42) IU/L ALT (10-60) IU/L Alkaline Phosphatase (42-121) IU/L Total Protein (6.7-8.2) g/dL Albumin (3.2-5.5) g/dL Globulin (2.1-4.2) g/dL Albumin/Globulin Ratio (1.0-2.2) Urine Color YELLOW Urine Clarity CLEAR (CLEAR) Urine pH 7.0 (5.0-7.5) PH Ur Specific [place] <=1.005 (1.002-1.030) Urine Protein NEGATIVE (NEGATIVE) mg/dL Urine Glucose (UA) NEGATIVE (NEGATIVE) mg/dL Urine Ketones NEGATIVE (NEGATIVE) mg/dL Urine Occult Blood TRACE-LYSE (NEGATIVE) Urine Nitrite NEGATIVE (NEGATIVE) Urine Bilirubin NEGATIVE (NEGATIVE) Urine Urobilinogen 0.2 (NORMAL) (NORMAL) E.U./dL Ur Leukocyte Esterase NEGATIVE (NEGATIVE) Urine RBC 0-5 (0-5) /HPF Urine WBC 0-3 (0-5) /HPF Ur Squamous Epith Cells NONE SEEN (<= Few) Urine Bacteria None Seen (None Seen) /HPF Urine Culture Comments NOT INDICATED - Other Results/Comments Other Results/Comments: Patient sitting up eating breakfast. Appears in no distress. Observed to eat (lift) with LUE and cautioned against this. LLE: cap refill <2 sec all toes, all toes equally warm. able to easily flex/ext toes and ankle with comfort. no calf TTP noted b/l. Right with SCD. bulky Caro dressing CDI and knee brace locked in extension, well fitting. Assessment/Plan - Problem List (1) Left patella fracture Impression: Doing well POD2 s/p left patella revision ORIF from ortho perspective. Appreciate the events noted above, fever w/u, and thorough Hospitalist evaluation and care. Agree with plan as outlined. SCD's in bed, ASA DEV prophylaxis Incentive spirometer Q1h while awake NWB RUE and LLE- emphasized with patient again today. PT/OT evaluation and treatment for safe transfers and ADL's SW for placement Ortho stable, may dc to SNF when ok from Hospitalist perspective and bed available f/u Ortho 10-12 days or sooner PRN Qualifiers: Encounter type: subsequent encounter Fracture type: closed Fracture morphology: comminuted Fracture alignment: displaced
[2018-07-27] MEDS: oxyCODONE 5 MG TABLET PO PRN ×2 (10:56→16:13)
--- NOTE | 2018-07-27 13:15 | Discharge Plan ---
"Discharge Plan for SNF / [facility] - Discharge Plan And Transition Orders Disposition: 03 SNF DC/Xfer Condition: Good Allergies and Adverse Reactions: Allergies Allergy/AdvReac Type Severity Reaction Status Date / Time tetracycline Allergy Unknown Verified 06/29/17 15:38 - SNF / [facility] Transition Orders Admit to (Facility): [facility] Under the care of (Name): Dr. Santos Discharge Diagnosis: Complication of surgical and medical care, unspecified, sequela (T88.9XXS) new on this admission and likely caused by falls at her previous SNF, stable, ongoing post op care and NO weight bearing as per orthosurgery. Closed fracture of left patella (S82.002A) stable, no evidence of infection. Frequent falls (R29.6) chronic, stable, fall precautions. Right wrist fracture (S62.101A) stable, red cast in place. NO weight bearing. Psychiatric disorder (F99) chronic, continued on all home meds. Atrial fibrillation (I48.91) chronic, no evidence of arrhythmia at this time. Osteoporosis (M81.0) chronic, continue on D3 daily. Medicare Certification Statement: I certify that Post Hospital custodial care is medically necessary on a continuing basis for any of the conditions for which she/he is receiving care during hospitalization. Notify PCP of admission and forward orders to primary provider for signature. Weight on admission and: Monthly Other Notification Orders: Call PCP immediately if patient develops dyspnea, chest pain/tightness or edema. Additional Bowel Program Orders: If no BM after 2 days, nurse may give M.O.M. 30ml PO PRN and/or ducolax Supp 1 MO and/or LUIS 250mg P.O., and/or senna 1-2 tabs PO. On day 3 nurse may give repeat above order until residents constipation is resolved. Orthopedic Orders: Doing well POD2 s/p left patella revision ORIF from ortho perspective. SCD's in bed, ASA DEV prophylaxis. Incentive spirometer Q1h while awake. NWB RUE and LLE- emphasized with patient again today. PT/OT evaluation and treatment for safe transfers and ADL's. Ortho stable, may dc to SNF today. f/u Ortho 10-12 days or sooner PRN Medication Orders: PLEASE REFER TO THE DISCHARGE MEDICATION LIST. Insulin Orders?: No - Medications New Prescriptions: Aspirin Chewable [[place] Harry Aspirin] 162 mg PO DAILY #60 tablet Cholecalciferol (Vitamin D3) [Vitamin D] 2,000 unit PO DAILY #30 capsule - Diet Type: Geriatric Texture: Regular Liquids: Thin May have monthly special meal: Yes - Therapies | Activity Therapy: Evaluation | Treat if indicated: PT, OT Rehabilitation Potential: Maximize functional status, Return to independent living Weight Bearing: No Weight (to RUE and LLE) Extremities: NWBLLE Assistance Devices: Wheelchair, Walker"
--- NOTE | 2018-07-27 13:37 | DISCHARGE SUMMARY ---
Discharge Summary Admit Date: 07/25/18 Discharge Date: 07/27/18 Discharging Provider: JOHN Collins Primary Care Provider: Mendoza Cherry/Dr. Santos Code Status: Attempt Resuscitation Condition at Discharge: Good Discharge Disposition: 03 SNF DC/Xfer Discharge Facility Name: [facility] - DIAGNOSES Admission Diagnoses: Fracture of unsp carpal bone, right wrist, init for clos fx (S62.101A) Unsp fracture of left patella, init for clos fx (S82.002A) Bipolar disorder, unspecified (F31.9) Post-traumatic stress disorder, unspecified (F43.10) Panic disorder [episodic paroxysmal anxiety] (F41.0) Mental disorder, not otherwise specified (F99). Repeated falls (R29.6) Syncope and collapse (R55) Obsessive-compulsive disorder, unspecified (F42.9) Discharge Diagnoses with Status of Each Condition: Complication of surgical and medical care, unspecified, sequela (T88.9XXS) new on this admission and likely caused by falls at her previous SNF, stable, ongoing post op care and NO weight bearing as per orthosurgery. Closed fracture of left patella (S82.002A) stable, no evidence of infection. Frequent falls (R29.6) chronic, stable, fall precautions. Right wrist fracture (S62.101A) stable, red cast in place. NO weight bearing. Psychiatric disorder (F99) chronic, continued on all home meds. Atrial fibrillation (I48.91) chronic, no evidence of arrhythmia at this time. Osteoporosis (M81.0) chronic, continue on D3 daily. - HPI History of Present Illness: Nika Frazier is a 67-year old female with a past medical history of recurrent falling, atrial fibrillation, several psychiatric diagnoses including; PTSD, OCD, bipolar, anxiety, agoraphobia, eating disorder, and depression. Her original injury was on 07/01/18 and occurred at her home when she had an unprovoked fall in her bathroom. She fell in a manner to hit her head on the drywall (which left a dent) and land on vinyl floor and injured her L knee and R wrist. She reported that she was "out of it" for the fall, but denied true LOC, which is apparently an ongoing issue for her according to her and her . She denied chest pain, sob, or presyncope prior to the fall and denies any mec hanical trigger to cause the fall. She underwent a surgical repair on 07/04/18, to repair her left patella, and complex fracture of the R wrist. [place], for her recent left patellar repair and right wrist repair. She attended a planned outpatient orthosurgery office visit where imaging showed that her left patella was displaced, which required more surgery advised by our orthopedic surgeons after at least 2 accidental falls at the care home facility. The Hospitalist team was consulted for medical management and given this patient's complex past medical history. - CONSULTS | PROCEDURES Consultations: Orthopedic surgery-Dr. Castro - HOSPITAL COURSE Hospital Course: The patient underwent a re-repair of her left patella fracture after it was discovered that it had been injured after sustaining a fall at her SNF. She had a non-eventful hospital stay and was discharged to [facility] for further rehab given the profound debility that she had. Her restrictions remained to have NO weight on her RUE and LLE. She was evaluated by physical therapy, who r ecommended continued PT in a SNF setting. She was medically stable and cleared by orthopedic surgery prior to discharge. She was safely transported via cab to [facility] under the care of Dr. Santos. - ALLERGIES Allergies/Adverse Reactions: Allergies Allergy/AdvReac Type Severity Reaction Status Date / Time tetracycline Allergy Unknown Verified 06/29/17 15:38 - MEDICATIONS Home Medications: Ambulatory Orders Medication Instructions Recorded Confirmed Buspirone HCl 30 mg PO QPM #0 07/07/18 07/25/18 Clomipramine HCl 200 mg PO QPM #0 07/07/18 07/25/18 Levothyroxine Sodium 75 mcg PO QDAC #0 07/07/18 07/25/18 Lorazepam [Ativan] 1 mg PO BID PRN #15 tablet 07/07/18 07/25/18 Polyethylene Glycol 3350 [Miralax] 17 gm PO Q3D #0 07/07/18 07/25/18 Quetiapine Fumarate [Seroquel] 400 mg PO DAILY PM #0 07/07/18 07/25/18 buPROPion HCl [Bupropion HCl Sr] 200 mg PO 0600,1500 #0 07/07/18 07/25/18 oxyCODONE [Roxicodone] 10 mg PO Q4HR PRN #30 tablet 07/07/18 07/25/18 Aspirin Chewable [[place] 162 mg PO DAILY #60 tablet 07/27/18 Aspirin] Cholecalciferol (Vitamin D3) 2,000 unit PO DAILY #30 capsule 07/27/18 [Vitamin D] - PHYSICAL EXAM AT DISCHARGE General Appearance: positive: No acute distress, Alert Eyes Bilateral: positive: PERRL ENT: positive: Pharynx nml, No signs of dehydration Neck: positive: Thyroid nml, No JVD, Trachea midline Respiratory: positive: Chest non-tender, No respiratory distress, Breath sounds nml, Other (diminished) Cardiovascular: positive: Regular rate & rhythm, No gallop, Systolic murmur Peripheral Pulses: positive: 2+ Abdomen: positive: Non-tender, Nml bowel sounds Back: positive: Nml inspection Skin: positive: No rash, Warm, Dry, Pallor Extremities: positive: Pedal edema, Joint swelling (left knee with expected post-op swelling) Neurologic/Psychiatric: positive: Oriented x3, CN's nml (2-12), Motor nml, Weakness, Depressed mood/affect Reflexes: Bicep (R): 2+, Bicep (L): 2+ - LABS Result Diagrams: 07/27/18 07:16 07/27/18 07:16 - DIAGNOSTIC IMAGING Diagnostic Imaging Results: Final report reviewed Diagnostic Imaging Results Comments: EXAM: LEFT KNEE RADIOGRAPHY EXAM DATE: 07/23/2018 09:34 AM. IMPRESSION: Interval change in configuration of the patella fracture status post tension band construct, possible failure. EXAM: INTRAOPERATIVE LEFT KNEE RADIOGRAPHY EXAM DATE: 07/25/2018 01:10 PM. 4 intraoperative radiographs of the left knee focused on a fractured patella now undergoing tension band construct reconstruction are submitted for review. Images demonstrate wire placement and tension band construction with a final configuration that is without evidence of failure. IMPRESSION: Intraoperative imaging as described. EXAM: CHEST RADIOGRAPHY EXAM DATE: 07/26/2018 06:41 PM. IMPRESSION: No acute cardiopulmonary abnormality - SEPSIS Current Stage of Sepsis: Ruled out - FOLLOW UP Follow Up: Admit to (Facility): [facility] Under the care of (Name): Dr. Santos Discharge Diagnosis: Complication of surgical and medical care, unspecified, sequela (T88.9XXS) new on this admission and likely caused by falls at her previous SNF, stable, ongoing post op care and NO weight bearing as per orthosurgery. Closed fracture of left patella (S82.002A) stable, no evidence of infection. Frequent falls (R29.6) chronic, stable, fall precautions. Right wrist fracture (S62.101A) stable, red cast in place. NO weight bearing. Psychiatric disorder (F99) chronic, continued on all home meds. Atrial fibrillation (I48.91) chronic, no evidence of arrhythmia at this time. Osteoporosis (M81.0) chronic, continue on D3 daily. - TIME SPENT Time Spent in Discharge (Minutes): 60
[2018-07-27 15:53] VITALS: BP 93/54
[2018-07-27] MEDS: LORazepam 1 MG TABLET PO PRN (16:13)
== END 2018-07-27 16:50 ==
LOC: SDS 09:58 → MS2 14:38 → SDS 07-26 08:42 → MS2 07-26 08:43
PROVIDERS: ADMIT Nurse Practitioner; ATTEND Nurse Practitioner
PROC: 0QPF04Z Removal of Internal Fixation Device from Left Patella, Open Approach (ICD-10-PCS; 2018-07-25)
PROC: 0QSF04Z Reposition Left Patella with Internal Fixation Device, Open Approach (ICD-10-PCS; principal; 2018-07-25 11:00)
DX: S82.042A Displaced comminuted fracture of left patella, initial encounter for closed fracture (principal); T84.218A Breakdown (mechanical) of internal fixation device of other bones, initial encounter; Z91.81 History of falling; R29.6 Repeated falls; S52.571D Other intraarticular fracture of lower end of right radius, subsequent encounter for closed fracture with routine healing; F99 Mental disorder, not otherwise specified; I48.91 Unspecified atrial fibrillation; M81.0 Age-related osteoporosis without current pathological fracture; G40.909 Epilepsy, unspecified, not intractable, without status epilepticus; F03.90 Unspecified dementia, unspecified severity, without behavioral disturbance, psychotic disturbance, mood disturbance, and anxiety; F43.10 Post-traumatic stress disorder, unspecified; F31.9 Bipolar disorder, unspecified; F41.0 Panic disorder [episodic paroxysmal anxiety]; R55 Syncope and collapse; F42.9 Obsessive-compulsive disorder, unspecified; Z79.899 Other long term (current) drug therapy
CPT/HCPCS: 20680; 27524; 36415; 51701; 71045; 73562; 80048; 80053; 81001; 83605; 83735; 84100; 85025; 87040; 97162; A9270; C1713; G0378; J0690; J7120; J8499; 87086

== ENCOUNTER 2018-09-18 15:02 | Outpatient (CLI) | payer MEDICARE, OTHER ==
[2018-09-18 15:35] LABS: CALCIUM 8.9 mg/dL (8.5-10.3)
[2018-09-18 15:59] LABS: BASOPHILS % (AUTO) 0.6 %; EOSINOPHILS # (AUTO) 0.1 10^3/uL (0.0-0.7); HGB - HEMOGLOBIN 13.8 g/dL (12.0-16.0); LYMPHOCYTES % (AUTO) 35.3 %; MEAN CORPUSCULAR HEMOGLOBIN 31.4 pg (27.0-31.0); MEAN CORPUSCULAR HGB CONC 32.8 g/dL (32.0-36.0); MEAN CORPUSCULAR VOLUME 95.8 fL (81.0-99.0); MEAN PLATELET VOLUME 7.9 fL (7.9-10.8); MONOCYTES # (AUTO) 0.6 10^3/uL (0.0-1.0); MONOCYTES % (AUTO) 10.8 %; NEUTROPHILS # (AUTO) 2.9 10^3/uL (1.5-6.6); NEUTROPHILS % (AUTO) 51.3 %; PLT - PLATELET COUNT 157 10^3/uL (130-450); RED BLOOD COUNT 4.38 10^6/uL (4.20-5.40); RED CELL DISTRIBUTION WIDTH 14.4 % (12.0-15.0); WHITE BLOOD COUNT 5.6 x10^3/uL (4.8-10.8)
== END 2018-09-18 15:03 | disposition home or self-care (01) ==
LOC: LAB 15:02
PROVIDERS: ATTEND Orthopaedic Surgery Sports Medicine
DX: Z01.818 Encounter for other preprocedural examination (principal); S82.002A Unspecified fracture of left patella, initial encounter for closed fracture; Z79.899 Other long term (current) drug therapy
CPT/HCPCS: 36415; 80048; 85025; 93005

== ENCOUNTER 2018-09-19 08:15 | Day surgery (SDC) | payer MEDICARE, OTHER ==
[~2018-09-19 08:15] MED LIST changes: +ceFAZolin 2 GM/50 ML 2 GM/50 ML BAG IV ONE
--- NOTE | 2018-09-19 08:40 | ANESTHESIA ---
Pre-Anesthesia VS, & Labs - Diagnosis left knee patella fracture - Procedure open reduction internal fixation patella, revision Vital Signs: 117/93,hr 79, 100% pulse ox, 16 rr Height 5 ft 9 in Body Mass Index 19.2 - NPO >8 hours - Is Patient ?: No, Not Applicable - Lab Results Lab results reviewed: Yes Home Medications and Allergies Home Medications: Ambulatory Orders Calcium Carbonate [Calcium] 1,200 mg PO BID 09/12/18 Levothyroxine Sodium [Synthroid] 175 mcg PO QDAC 09/12/18 Nutrafol 4 cap PO QDDINNER 09/12/18 Polyethylene Glycol 3350 [Miralax] 17 gm PO Q3D PRN 09/12/18 Tolterodine Tartrate [Detrol LA] 4 mg PO DAILY 09/12/18 Calcium Carbonate [Calcium] 1,200 mg PO BID 09/12/18 Levothyroxine Sodium [Synthroid] 175 mcg PO QDAC 09/12/18 Nutrafol 4 cap PO QDDINNER 09/12/18 Polyethylene Glycol 3350 [Miralax] 17 gm PO Q3D PRN 09/12/18 Tolterodine Tartrate [Detrol LA] 4 mg PO DAILY 09/12/18 Allergies/Adverse Reactions: Allergies Allergy/AdvReac Type Severity Reaction Status Date / Time tetracycline Allergy Unknown Verified 06/29/17 15:38 Anes History & Medical History - Anesthetic History Anesthesia Complications: reports: No previous complications - Medical History Cardiovascular: reports: High cholesterol, Atrial fibrillation Pulmonary: reports: Asthma, Pneumonia Gastrointestinal: reports: GI bleed, Chronic diarrhea, Chronic constipation, Hemorrhoids Urinary: reports: Incontinence, Nocturia, Frequency Neuro: reports: Dementia, Headaches, Seizure disorder (petite mal, memory loss), Other Musculoskeletal: reports: Osteoarthritis, Osteoporosis, Fatigue Endocrine/Autoimmune: reports: HyPOthyroidism Blood Disorders: reports: None Skin: reports: None Smoking Status: Never smoker - Surgical History General: 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, Other Gynecologic: Hysterectomy, Oophrectomy, Other Orthopedic: Knee replacement Exam General: Alert Dental: WNL Mouth Opening: Greater than 4 Fingerbreadths Mallampati classification: II, III Respiratory: Lungs clear Cardiovascular: Regular rate, Normal S1, Normal S2 Plan Anesthesia Type: Spinal, Femoral Block Consent for Procedure(s) Verified and Reviewed: Yes Code Status: Attempt Resuscitation ASA classification: 2-Mild systemic disease Is this case an emergency?: No
[2018-09-19] MEDS ORDERED: LACTATED RINGERS 1,000 ML IV ONE (08:48)
[2018-09-19 08:49] VITALS: BP 117/93
[2018-09-19] MEDS ORDERED: MIDAZOLAM 2 MG/2 ML VIAL ONE (08:55)
[2018-09-19] MEDS ORDERED: DEXAMETHASONE 4 MG/ML VIAL ONE (08:55)
[2018-09-19] MEDS ORDERED: MIDAZOLAM 2 MG/2 ML VIAL IVP SCH (12:03)
== END 2018-09-19 08:16 | disposition home or self-care (01) ==
LOC: SDS 08:15
PROVIDERS: ATTEND Orthopaedic Surgery Sports Medicine
DX: S82.042K Displaced comminuted fracture of left patella, subsequent encounter for closed fracture with nonunion (principal); Z53.9 Procedure and treatment not carried out, unspecified reason
CPT/HCPCS: J0690; J7120

== ENCOUNTER 2018-12-14 15:09 | Outpatient (CLI) | payer MEDICARE, OTHER ==
--- NOTE | 2018-12-15 14:53 | XRAY Report ---
Reason: PAIN IN LT FOOT RT KNEE Procedure Date: 12/14/2018 Accession Number: [id number] / [id number] Procedure: XR - Foot 3 View LT CPT Code: FULL RESULT: EXAM: LEFT FOOT RADIOGRAPHY EXAM DATE: 12/14/2018 03:15 PM. CLINICAL HISTORY: PAIN IN LT FOOT CHRONICALLY. COMPARISON: FOOT 3 VIEW RT 04/20/2016 4:19 PM. TECHNIQUE: 3 views. FINDINGS: Bones: No fractures or bone lesions. Joints: No significant degenerative process. No subluxations. Soft Tissues: No soft tissue calcification or soft tissue swelling. IMPRESSION: Negative left foot radiography. RADIA
--- NOTE | 2018-12-15 15:17 | XRAY Report ---
Reason: PAIN IN LT FOOT RT KNEE Procedure Date: 12/14/2018 Accession Number: [id number] / [id number] Procedure: XR - Knee 3 View RT CPT Code: FULL RESULT: EXAM: RIGHT KNEE RADIOGRAPHY EXAM DATE: 12/14/2018 03:15 PM. CLINICAL HISTORY: Chronic kidney pain. COMPARISON: None. TECHNIQUE: 3 views. FINDINGS: Bones: No fractures or bone lesions. Joints: No significant degenerative process. No effusion. No subluxations. Soft Tissues: No soft tissue swelling; no intra-or periarticular soft tissue calcification. IMPRESSION: Negative right knee radiography. RAD[facility]
== END 2018-12-14 15:10 | disposition home or self-care (01) ==
LOC: DI 15:09
PROVIDERS: ATTEND Specialist
DX: M25.561 Pain in right knee (principal); M79.672 Pain in left foot

== ENCOUNTER 2019-01-09 15:28 | Outpatient (CLI) | payer MEDICARE, OTHER ==
--- NOTE | 2019-01-10 09:54 | XRAY Report ---
Reason: RT FOOT PAIN Procedure Date: 01/09/2019 Accession Number: [id number] / [id number] Procedure: XR - Foot 3 View RT CPT Code: FULL RESULT: EXAM: RIGHT FOOT RADIOGRAPHY EXAM DATE: 01/09/2019 03:40 PM. CLINICAL HISTORY: Right foot pain for 10 days, no known trauma. COMPARISON: FOOT 3 VIEW LT 12/14/2018 3:15 PM. TECHNIQUE: 3 views. FINDINGS: Bones: The bones are qualitatively osteopenic; this limits evaluation for underlying fractures or masses. No fracture or aggressive osseous lesion is detected within these limitations. Joints: Normal. No subluxations. Soft Tissues: Normal. No soft tissue swelling. IMPRESSION: Qualitatively osteopenic. Otherwise negative study. RAD[facility]
== END 2019-01-09 15:29 | disposition home or self-care (01) ==
LOC: DI 15:28
PROVIDERS: ATTEND Specialist
DX: M79.671 Pain in right foot (principal); M85.871 Other specified disorders of bone density and structure, right ankle and foot

== ENCOUNTER 2019-06-10 18:23 | Emergency (ER) | payer MEDICARE, OTHER ==
[2019-06-10] MEDS ORDERED: SODIUM CHLORIDE 0.9% 1,000 ML IV ONE (20:28)
[2019-06-10] MEDS ORDERED: KETOROLAC 30 MG/ML VIAL IVP STA (20:28)
--- NOTE | 2019-06-10 20:32 | ED Physician Documentation ---
PD HPI Fall - Stated complaint Stated Complaint: SPONTANEOUS FALLS - Chief complaint Chief Complaint: Trauma Hd/Nk - History obtained from History obtained from: Patient - History of Present Illness Mechanism of injury: Syncope Fall distance: Standing position Where injury occurred: Home Timing - onset: Today Injury(ies) location: Head, Neck, Back, Left Uppper Extremity Quality of pain: Pain Associated symptoms: LOC, Neck pain. No: AMS, Amnesia, Seizures, Ear drainage, Nasal drainage, Weakness, Paresthesias, Dyspnea, Nausea / vomiting, Hematemesis, Abdominal distension Symptoms improve with: Rest Worsens with: Movement, Palpation Contributing factors: No: Anticoagulated, Intoxicated Similar symptoms before: No diagnosis Recently seen: Not recently seen - Additional information Additional information: 68-year-old female with a prior history of falls has had a fall today while she was taking her garbage can out down the ramp. She does not remember exactly how the fall happened she did fall onto her left side. She went to go to the walk- in clinic and [place] at about 5:50 and they were unable to see her and she at the time had pain in her neck and arm. She was behind the clinic when she had a syncopal episode and collapsed again injuring her buttocks and her head and neck. She complains of pain to her lower back her neck and her head and she has had a syncopal episode today. She has a prior history of falls with evaluation done in [place] and apparently the fall that she had been with the bleed was not an actual bleed. She was also told times she did not have atrial fibrillation. She does have falls frequently she is had a fall in May fracturing her right fifth digit and she is anticipating appointment in the coming month with a neurologist in regards to her falls. I specifically asked patient if she always falls backwards and she specifically denied this. States she has fallen flat onto her face previously as well. She does have a history of overactive bladder and she is on medication for that she drinks less fluids than she needs to avoid going to the bathroom as often. Review of Systems Constitutional: denies: Fever Eyes: denies: Decreased vision Ears: denies: Ear pain Nose: denies: Congestion Throat: denies: Sore throat Cardiac: denies: Chest pain / pressure, Palpitations Respiratory: denies: Dyspnea, Cough GI: denies: Abdominal Pain, Nausea, Vomiting : denies: Dysuria, Frequency Musculoskeletal: reports: Neck pain, Back pain, Extremity pain Neurologic: reports: Syncope. 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: Ectopic , Ovarian cysts : Incontinence, Nocturia, Frequency HEENT: Chronic vision loss, Chronic sinusitis Psych: Depression, Anxiety, Bipolar disorder, Panic attacks, Post traumatic stress disorder, Obsessive compulsive disorder, Eating disorder Musculoskeletal: Osteoarthritis, Osteoporosis, Fatigue Derm: None - Past Surgical History Past Surgical History: Yes General: 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, Other Ortho: Knee replacement /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 FIBERS: Hysterectomy, Oophrectomy, Other - Present Medications Home Medications: Ambulatory Orders Medication Instructions Recorded Confirmed Buspirone HCl 30 mg PO QPM #0 07/07/18 09/12/18 Clomipramine HCl 200 mg PO QPM #0 07/07/18 09/12/18 Lorazepam [Ativan] 1 mg PO BID PRN #15 tablet 07/07/18 09/12/18 Quetiapine Fumarate [Seroquel] 400 mg PO DAILY PM #0 07/07/18 09/12/18 buPROPion HCl [Bupropion HCl Sr] 200 mg PO 0600,1500 #0 07/07/18 09/12/18 oxyCODONE [Roxicodone] 10 mg PO Q4HR PRN #30 tablet 07/07/18 09/12/18 Aspirin Chewable [[place] 162 mg PO DAILY #60 tablet 07/27/18 09/12/18 Aspirin] Calcium Carbonate [Calcium] 1,200 mg PO BID 09/12/18 09/12/18 Levothyroxine Sodium [Synthroid] 175 mcg PO QDAC 09/12/18 09/12/18 Nutrafol 4 cap PO QDDINNER 09/12/18 09/12/18 Polyethylene Glycol 3350 [Miralax] 17 gm PO Q3D PRN 09/12/18 09/12/18 Tolterodine Tartrate [Detrol LA] 4 mg PO DAILY 09/12/18 09/12/18 - Allergies Allergies/Adverse Reactions: Allergies Allergy/AdvReac Type Severity Reaction Status Date / Time tetracycline Allergy Unknown Verified 06/10/19 18:26 - Social History Does the pt smoke?: No Smoking Status: Never smoker Does the pt drink ETOH?: No Does the pt have substance abuse?: No - Immunizations Immunizations are current?: No - POLST Patient has POLST: No POLST Status: Full Code PD ED PE NORMAL - Vitals Vital signs reviewed: Yes (hypertensive ) - General General: Alert and oriented X 3, No acute distress, Well developed/nourished - HEENT HEENT: Atraumatic, PERRL, EOMI - Neck Neck: Supple, no meningeal sign, Other (There is midline bony tenderness to the mid cervical spine ) - Cardiac Cardiac: RRR, No murmur - Respiratory Respiratory: No respiratory distress, Clear bilaterally - Abdomen Abdomen: Soft, Non tender - Back Back: No CVA TTP, Other (There is paraspinous muscle tenderness to the lower lumbar spine bilaterally. 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, No motor deficit, No sensory deficit, Normal speech Eye Opening: Spontaneous Motor: Obeys Commands Verbal: Oriented GCS Score: 15 - Psych Psych: Normal mood, Normal affect Results - Vitals Vitals: Vital Signs - 24 hr 06/10/19 06/10/19 06/10/19 18:26 20:29 22:24 Temperature 37 C 36.2 C L Heart Rate 85 84 80 Respiratory 16 16 16 Rate Blood Pressure 135/93 H 130/89 H 135/81 H O2 Saturation 100 100 97 Oxygen O2 Source Room air - Labs Labs: Laboratory Tests 06/10/19 06/10/19 06/10/19 20:07 20:34 20:34 WBC 7.4 RBC 4.24 Hgb 13.6 Hct 41.7 MCV 98.3 MCH 32.1 H MCHC 32.6 RDW 13.2 Plt Count 117 L MPV 10.2 Neut # (Auto) 4.3 Lymph # (Auto) 2.3 [place] # (Auto) 0.7 Eos # (Auto) 0.1 Baso # (Auto) 0.0 Absolute Nucleated RBC 0.00 Nucleated RBC % 0.0 Sodium 139 Potassium 4.2 Chloride 101 Carbon Dioxide 26 Anion Gap 12.0 BUN 30 H Creatinine 1.3 H Estimated GFR (MDRD) 41 L Glucose 92 Calcium 9.6 Total Bilirubin 0.8 AST 71 H ALT 112 H Alkaline Phosphatase 72 Total Protein 7.0 Albumin 4.4 Globulin 2.6 Albumin/Globulin Ratio 1.7 Lipase 61 H Urine Color YELLOW Urine Clarity CLEAR Urine pH 7.5 Ur Specific [place] 1.010 Urine Protein NEGATIVE Urine Glucose (UA) NEGATIVE Urine Ketones NEGATIVE Urine Occult Blood NEGATIVE Urine Nitrite NEGATIVE Urine Bilirubin NEGATIVE Urine Urobilinogen 0.2 (NORMAL) Ur Leukocyte Esterase SMALL H Urine RBC None Seen Urine WBC 4-5 Ur Squamous Epith Cells RARE Squamous Urine Bacteria Few Ur Microscopic Review INDICATED Urine Culture Comments INDICATED Ethyl Alcohol 06/10/19 20:34 WBC RBC Hgb Hct MCV MCH MCHC RDW Plt Count MPV Neut # (Auto) Lymph # (Auto) [place] # (Auto) Eos # (Auto) Baso # (Auto) Absolute Nucleated RBC Nucleated RBC % Sodium Potassium Chloride Carbon Dioxide Anion Gap BUN Creatinine Estimated GFR (MDRD) Glucose Calcium Total Bilirubin AST ALT Alkaline Phosphatase Total Protein Albumin Globulin Albumin/Globulin Ratio Lipase Urine Color Urine Clarity Urine pH Ur Specific [place] Urine Protein Urine Glucose (UA) Urine Ketones Urine Occult Blood Urine Nitrite Urine Bilirubin Urine Urobilinogen Ur Leukocyte Esterase Urine RBC Urine WBC Ur Squamous Epith Cells Urine Bacteria Ur Microscopic Review Urine Culture Comments Ethyl Alcohol < 5.0 - Rads (name of study) CT head w/o Radiology: Prelim report reviewed (Impression: 1. No acute intracranial findings. Stable faint cortical hyperdense focus in the left frontal lobe (series #2 image #18) possibly representing small focus of laminar necrosis.), EMP read indepedently, See rad report lumbar spine Radiology: Prelim report reviewed (Impression: 1. Age-indeterminate wedge-shaped compression fracture of the T11 vertebral body with less than 25% anterior vertebral body height loss. 2. No traumatic malalignment.), EMP read indepedently, See rad report CT cervical spine Radiology: Prelim report reviewed (Impression: 1. No acute fracture or traumatic malalignment.), EMP read indepedently, See rad report Procedures - IVC sono (time) 2019 Bedside IVC sono: IVC measures (cm) (1.06), IVC collapsed c insp (cm) (complete), Dehydration (est 1-2 liter deficit) PD MEDICAL DECISION MAKING - ED course Complexity details: reviewed old records, reviewed results, re-evaluated patient, considered differential, d/w patient ED course: 68-year-old female with 2 falls today that appear syncopal related and she is found to be significantly dehydrated on interrogation the inferior vena cava. Her dehydration is presumed to be on the basis of poor oral intake secondary to not wanting to get up to go to the bathroom with her overactive bladder. She is hydrated and CT of the head neck and x-rays of the lumbar spine were obtained. There are no significant injuries related to the fall. Her T 11 fracture is old. The patient was found to be dehydrated on interrogation the inferior vena cava and she was administered intravenous fluids. She does have some issue with not drinking as much fluid because of her frequent urination and she has previously been seen by a urologist regarding that. It appears a follow-up would be reasonable. She also has follow-up for her frequent falls with a neurologist. I did not find any early signs of Parkinson's with the patient and I am concerned about the possibility of neurodegenerative disease. She did have a elevation in her LFTs and she has no specific and explanation for this. She does not drink she does state that previously this was followed by her prior physician. Departure - Departure Disposition: 01 Home, Self Care Clinical Impression: Falls frequently, Dehydration, Transaminitis Condition: Stable Instructions: Aspartate Transaminase, ED Dehydration, ED Prevention Fall Follow-Up: JANET VALDEZ [Primary Care Provider] - Jose Armando Worthington MD [Provider Admit Priv/Credential] - Discharge Date/Time: 06/10/19 23:47
[2019-06-10 20:40] LABS: BASOPHILS % (AUTO) 0.3 %; EOSINOPHILS # (AUTO) 0.1 10^3/uL (0.0-0.7); EOSINOPHILS % (AUTO) 1.5 %; HGB - HEMOGLOBIN 13.6 g/dL (12.0-16.0); LYMPHOCYTES # (AUTO) 2.3 10^3/uL (1.5-3.5); LYMPHOCYTES % (AUTO) 30.6 %; MEAN CORPUSCULAR HEMOGLOBIN 32.1 pg (27.0-31.0); MEAN CORPUSCULAR HGB CONC 32.6 g/dL (32.0-36.0); MEAN CORPUSCULAR VOLUME 98.3 fL (81.0-99.0); MEAN PLATELET VOLUME 10.2 fL (7.9-10.8); MONOCYTES # (AUTO) 0.7 10^3/uL (0.0-1.0); MONOCYTES % (AUTO) 9.3 %; NEUTROPHILS # (AUTO) 4.3 10^3/uL (1.5-6.6); NEUTROPHILS % (AUTO) 57.6 %; PLT - PLATELET COUNT 117 10^3/uL (130-450); RED BLOOD COUNT 4.24 10^6/uL (4.20-5.40); RED CELL DISTRIBUTION WIDTH 13.2 % (12.0-15.0); WHITE BLOOD COUNT 7.4 x10^3/uL (4.8-10.8)
[2019-06-10 20:49] LABS: BILIRUBIN,URINE NEGATIVE (NEGATIVE); GLUCOSE, URINE (UA) NEGATIVE (NEGATIVE); KETONES,URINE (UA) NEGATIVE (NEGATIVE); LEUKOCYTE ESTERASE, URINE SMALL (NEGATIVE); NITRITE,URINE NEGATIVE (NEGATIVE); OCCULT BLOOD,URINE NEGATIVE (NEGATIVE); PH,URINE 7.5 PH (5.0-7.5); PROTEIN,URINE NEGATIVE (NEGATIVE); UROBILINOGEN,URINE 0.2 (NORMAL) E.U./dL (NORMAL)
[2019-06-10 20:50] LABS: CLARITY,URINE CLEAR (CLEAR)
[2019-06-10 20:51] LABS: ALBUMIN 4.4 g/dL (3.2-5.5); ALBUMIN/GLOBULIN RATIO 1.7 (1.0-2.2); BILIRUBIN,TOTAL 0.8 mg/dL (0.2-1.0); CALCIUM 9.6 mg/dL (8.5-10.3); CREATININE 1.3 mg/dL (0.4-1.0)
[2019-06-10 20:54] LABS: BACTERIA,URINE Few /HPF (None Seen); RBC,URINE None Seen /HPF (0-5); SQUAMOUS EPITHELIAL CELL,UR RARE Squamous (<= Few)
--- NOTE | 2019-06-10 21:30 | CT Report ---
Reason: fall neck pain Procedure Date: 06/10/2019 Accession Number: [id number] / [id number] Procedure: CT - CERVICAL SPINE WO CPT Code: FULL RESULT: EXAM: CT CERVICAL SPINE WITHOUT CONTRAST DATE: 06/10/2019 08:56 PM. HISTORY: Trauma. COMPARISONS: CERVICAL SPINE W/O 07/01/2018 3:39 PM. TECHNIQUE: Thin-section axial images were acquired of the cervical spine without contrast. Post-processing: Coronal and sagittal reformats. Other: None. In accordance with CT protocol optimization, one or more of the following dose reduction techniques were utilized for this exam: automated exposure control, adjustment of mA and/or KV based on patient size, or use of iterative reconstructive technique. FINDINGS: ALIGNMENT: Unchanged grade 1 anterolisthesis C4 on C5. BONES: No acute fracture. The vertebral bodies are normal in height. No suspicious osseous lesions. PARASPINAL SOFT TISSUES: Unremarkable. UPPER CHEST: Unremarkable. DISKS/JOINTS: Mild multilevel disk height loss throughout the cervical spine is essentially unchanged from prior study. Redemonstration of multilevel facet joint arthropathy. No significant central canal stenosis. IMPRESSION: 1. No acute fracture or traumatic malalignment. [facility]
--- NOTE | 2019-06-10 21:33 | XRAY Report ---
Reason: fall low back pain Procedure Date: 06/10/2019 Accession Number: [id number] / [id number] Procedure: XR - Lumbar Spine 2 View CPT Code: FULL RESULT: EXAM: LUMBOSACRAL SPINE RADIOGRAPHY EXAM DATE: 06/10/2019 09:08 PM. CLINICAL HISTORY: Fall low back pain. COMPARISONS: None. TECHNIQUE: 3 supine views. FINDINGS: NUMBERING: The last well-formed disk space will be numbered L5-S1. ALIGNMENT: A normal lumbar lordosis is present. BONES: The bones are osteopenic. Age indeterminate wedge-shaped compression fracture of the T11 vertebral body with less than 25% anterior vertebral body height loss. The vertebral bodies are normal in height. No suspicious osseous lesions. DISKS: No significant disk height loss. FACETS: Multilevel facet joint arthropathy most pronounced at L4-L5 and L5-S1. SACROILIAC JOINTS: Unremarkable. SOFT TISSUES: Aortic atherosclerosis. IMPRESSION: 1. Age indeterminate wedge-shaped compression fracture of the T11 vertebral body with less than 25% anterior vertebral body height loss. 2. No traumatic malalignment. [facility]
--- NOTE | 2019-06-10 21:36 | CT Report ---
Reason: LOC fall headache Procedure Date: 06/10/2019 Accession Number: [id number] / [id number] Procedure: CT - HEAD WO CPT Code: FULL RESULT: EXAM: CT HEAD EXAM DATE: 06/10/2019 08:56 PM. CLINICAL HISTORY: LOC fall headache. COMPARISON: CERVICAL SPINE W/O 07/01/2018 3:39 PM HEAD W/O 07/01/2018 3:39 PM. TECHNIQUE: Multiaxial CT images were obtained from the foramen magnum to the vertex. Reformats: Sagittal and coronal. IV contrast: None. In accordance with CT protocol optimization, one or more of the following dose reduction techniques were utilized for this exam: automated exposure control, adjustment of mA and/or KV based on patient size, or use of iterative reconstructive technique. FINDINGS: Parenchyma: Stable faint cortical hyperdense focus in the left frontal lobe (series #2 image #18) possibly representing a small focus of laminar necrosis. Stable faint basal ganglia calcifications bilaterally. No acute intracranial hemorrhage. Schultz-white matter differentiation preserved. Extraaxial Spaces: No subdural or epidural collections identified. Ventricles: No hydrocephalus. Sinuses and Orbits: Imaged paranasal sinuses, orbits, and mastoids show no significant abnormality. Bones: No evidence of fracture or calvarial defect. Other: None. IMPRESSION: 1. No acute intracranial findings. 2. Stable faint cortical hyperdense focus in the left frontal lobe (series #2 image #18) possibly representing a small focus of laminar necrosis RAD[facility]
[2019-06-10 22:25] VITALS: BP 135/81
== END 2019-06-10 23:47 | disposition home or self-care (01) ==
LOC: ED 18:23
DX: E86.0 Dehydration (principal); R74.0 Nonspecific elevation of levels of transaminase and lactic acid dehydrogenase [LDH]; Z91.81 History of falling
CPT/HCPCS: 36415; 70450; 72100; 72125; 80053; 80320; 81001; 81003; 83690; 85025; 87086; 96361; 96374; 99284

== ENCOUNTER 2019-07-04 03:06 | Outpatient (CLI) | payer MEDICARE, OTHER | END 2019-07-04 03:07 | disposition critical access hospital (66) | LOC: EMS 03:06 | PROVIDERS: ATTEND Surgery | DX: M25.552 Pain in left hip (principal); Z91.81 History of falling | CPT/HCPCS: A0425; A0429 ==

== ENCOUNTER 2019-07-04 03:16 | Emergency (ER) | payer MEDICARE, OTHER ==
--- NOTE | 2019-07-04 03:16 | ED Physician Documentation ---
PD HPI Fall - Stated complaint Stated Complaint: HIP PAIN - History obtained from History obtained from: Patient, EMS - History of Present Illness Mechanism of injury: Syncope Fall distance: Standing position Where injury occurred: Street Timing - onset: How many weeks ago (3 (06/10/19)) Injury(ies) location: Back Quality of pain: Pain Symptoms improve with: Rest Worsens with: Movement, Palpation Contributing factors: No: Anticoagulated, Intoxicated Recently seen: Emergency Dept - Additional information Additional information: patient has h/o falls of unknown cause, is scheduled to see a neurologist regarding these falls. Earlier this month, patient had another episode involving a fall without trip or slip. She had multiple areas of pain c/o at that time and went to a walk-in clinic in [place] but was unable to be seen. She then had another fall which was s/o syncope, brought to this ED and T+R after testing revealed no acute pathology (old thoracic vertebral fracture noted). Radiologic testing at that time included CT head and neck and plain-films of lumbar spine. Patient says she was discharged and as soon as she stood up from the stretcher after being discharged, she had low back and "tailbone" pain (per patient). She says she has had this pain every day since then, worst in right hip (but she describes the pain as from left hip, across low back, to right hip). The pain is worse with movement. She was seen by PMD in f/u and prescribed tramadol but has not had relief with this. She also was seen by a dentist since ED visit. She says she has been taking ibuprofen and tylenol, as well. Review of Systems Constitutional: reports: Reviewed and negative Cardiac: reports: Reviewed and negative Respiratory: reports: Reviewed and negative GI: reports: Reviewed and negative : denies: Dysuria, Frequency, Unable to Void, Incontinent Musculoskeletal: reports: Back pain. denies: Neck pain, Extremity pain Neurologic: reports: Syncope (has not had any episodes since she was T+R from this ED 06/10). denies: Generalized weakness, Focal weakness, Numbness, Headache PD PAST MEDICAL HISTORY - Past Medical History Past Medical History: Yes Endocrine/Autoimmune: HyPOthyroidism - Past Surgical History Past Surgical History: Yes Ortho: Other (repair of patellar fracture) - Present Medications Home Medications: Ambulatory Orders Medication Instructions Recorded Confirmed Quetiapine Fumarate [Seroquel] 400 mg PO DAILY PM #0 07/07/18 09/12/18 buPROPion HCl [Bupropion HCl Sr] 200 mg PO 0600,1500 #0 07/07/18 09/12/18 Polyethylene Glycol 3350 [Miralax] 17 gm PO Q3D PRN 09/12/18 09/12/18 Clomipramine HCl 200 mg PO QPM 07/04/19 07/04/19 Levothyroxine [Synthroid] 75 mcg PO DAILY 07/04/19 07/04/19 QUEtiapine [SEROquel] 12.5 mg PO PRN PRN 07/04/19 07/04/19 traMADol [Ultram] 50 mg PO Q4-6H PRN 07/04/19 07/04/19 - Allergies Allergies/Adverse Reactions: Allergies Allergy/AdvReac Type Severity Reaction Status Date / Time tetracycline Allergy Unknown Verified 07/04/19 03:28 - Living Situation Living Situation: reports: Alone Living Arrangement: reports: At home PD ED PE NORMAL - Vitals Vital signs reviewed: Yes - General General: Alert and oriented X 3, No acute distress (NAD at rest, appears to be in pain at times with movement involving lower back or either hip), Well developed/nourished - HEENT HEENT: Atraumatic, PERRL, EOMI - Neck Neck: No bony TTP - Cardiac Cardiac: RRR, No murmur - Respiratory Respiratory: No respiratory distress, Clear bilaterally - Back Back: No CVA TTP, No spinal TTP - Extremities Extremities: No edema PD ED PE EXPANDED - Extremities Extremities: Tenderness, Limited ROM, Right hip, Left hip Results - Vitals Vitals: Vital Signs - 24 hr 07/04/19 07/04/19 07/04/19 03:16 04:32 05:43 Temperature 36.9 C Heart Rate 86 88 91 Respiratory 24 16 16 Rate Blood Pressure 145/97 H 127/83 H 115/81 H O2 Saturation 100 98 98 Oxygen O2 Source Room air - Rads (name of study) bilateral hip xrays w/ pelvis Radiology: Prelim report reviewed, See rad report PD MEDICAL DECISION MAKING - ED course Complexity details: reviewed old records, reviewed results, re-evaluated patient, considered differential, d/w patient ED course: patient reported good pain relief with 2mg IV morphine that was administered along with 5mg PO oxycodone. Results of xrays discussed. Suspicion for missed fracture was low before the xrays were obtained, as patient fell over three weeks ago and has been ambulating (including appointments with both her dentist and PMD). I discussed discharge with her, and she expresses concern about falling again. She says she lives alone and does not drive. Per patient and previous [facility] ED records, her falls are not a new phenomenon and I do not see an indication for hospital admission at this time. I offered to have a social work job titles talk to her in the AM, and patient would very much like to exercise this option.
[2019-07-04] MEDS ORDERED: oxyCODONE 5 MG TABLET PO STA (03:54)
[2019-07-04] MEDS ORDERED: MORPHINE 2 MG/ML CARPUJECT IVP STA ×2 (03:55→10:15)
--- NOTE | 2019-07-04 04:42 | XRAY Report ---
Reason: fall 06/10, ongoing pain Procedure Date: 07/04/2019 Accession Number: [id number] / [id number] Procedure: XR - Hips 2V BILAT CPT Code: FULL RESULT: EXAM: BILATERAL HIP RADIOGRAPHY EXAM DATE: 07/04/2019 04:17 AM CLINICAL HISTORY: Fall 06/10, ongoing pelvic/hip pain. COMPARISON: HIP 1 VIEW LT 06/29/2017 4:19 PM. TECHNIQUE: 2 views each. FINDINGS: Bones: Normal. No fractures or bone lesion. Right Hip: Normal. No dislocation. The hip joint space is preserved. Left Hip: Normal. No dislocation. The hip joint space is preserved. Soft Tissues: Normal. No soft tissue swelling. IMPRESSION: Normal bilateral hip radiography. [facility]
[2019-07-04 11:19] VITALS: BP 121/84
== END 2019-07-04 11:53 | disposition home or self-care (01) ==
LOC: EDUNIT# → ED 03:16
DX: S33.5XXA Sprain of ligaments of lumbar spine, initial encounter (principal); W18.30XA Fall on same level, unspecified, initial encounter; Y92.410 Unspecified street and highway as the place of occurrence of the external cause; M25.551 Pain in right hip; M25.552 Pain in left hip; Z91.81 History of falling
CPT/HCPCS: 73521; 96374; 96376; 99283; 99284; A9270

== ENCOUNTER 2019-07-05 10:48 | Outpatient (CLI) | payer MEDICARE, OTHER | END 2019-07-05 10:49 | disposition EMS.NT | LOC: EMS 10:48 | PROVIDERS: ATTEND Surgery | DX: M25.551 Pain in right hip (principal) ==

== ENCOUNTER 2019-10-11 08:00 | Outpatient (CLI) | payer MEDICARE, OTHER ==
[2019-10-11 19:21] LABS: CHOL/HDL RATIO 2.6 (<4.4); CHOLESTEROL 235 mg/dL; HDL CHOLESTEROL 90 mg/dL
== END 2019-10-11 23:59 | disposition home or self-care (01) ==
LOC: LAB.WCP 08:00
PROVIDERS: ATTEND Family Medicine
DX: E78.5 Hyperlipidemia, unspecified (principal)
CPT/HCPCS: 36415; 80061; 83721

== ENCOUNTER 2019-10-18 14:06 | Outpatient (CLI) | payer MEDICARE, OTHER ==
--- NOTE | 2019-10-22 12:04 | DEXA Report ---
Reason: BONE DISORDER Procedure Date: 10/18/2019 Accession Number: [id number] / [id number] Procedure: DEX - Dexa Spine and/or Hip CPT Code: Final Report FULL RESULT: EXAM: Dexa Spine and/or Hip DATE: 10/18/2019 2:55 PM CLINICAL HISTORY: BONE DISORDER TECHNIQUE: Dual energy x-ray absorptiometry (DXA) was performed on a [employer] HQ System. Regions measured are the AP Spine, femoral neck, and if needed forearm. COMPARISON: None. In accordance with the International Society for Clinical Densitometry (ISCD) guidelines, data from previous exams may be reanalyzed using current recommendations and techniques. This is done to allow a more accurate basis for comparison with the current study. FINDINGS: The data for the lumbar spine is as follows: BMD (g/cm/cm) T-SCORE Z-SCORE REGION L1 0.703 -3.6 -1.5 L2 0.780 -3.5 -1.4 L3 0.828 -3.1 -1.0 L4 0.760 -3.7 -1.6 TOTAL 0.767 -3.4 -1.4 NOTE: All evaluable vertebrae are used for classification The data for the hip is as follows: BMD (g/cm/cm) T-SCORE Z-SCORE REGION Neck 0.708 -2.4 -0.5 TOTAL 0.609 -3.2 -1.5 NOTE: The femoral neck or total proximal femur, whichever is lowest, is used for classification. IMPRESSION: THE WHO CLASSIFICATION BASED ON THE INTERNATIONAL REFERENCE STANDARD IS OSTEOPOROSIS. THE FRACTURE RISK IS HIGH. RECOMMENDATION: Patients with diagnosis of osteoporosis or osteopenia should have regular bone mineral density assessment. For those eligible for Medicare, routine testing is allowed once every 2 years. Testing frequency can be increased for patients who have rapidly progressing disease or for those who are receiving medical therapy to restore bone mass. COMMENT: World Health Organization (WHO) definitions for osteoporosis and osteopenia: NORMAL BMD: T-score at -1.0 or higher, fracture risk is low OSTEOPENIA BMD: T-score between -1.0 and -2.5, fracture risk is increased. OSTEOPOROSIS BMD: T-score at -2.5 or lower, fracture risk is high. National Osteoporosis Foundation recommends: 1. Obtain adequate dietary calcium (at least 1200 mg per day) and vitamin D (400-800 international units per day). 2. Participate, as appropriate, in regular weightbearing and muscle-strengthening exercise. 3. Avoid tobacco use and reduce alcohol and caffeine intake. 4. For more detailed information see the website at www.NOF.org.
== END 2019-10-18 14:07 | disposition home or self-care (01) ==
LOC: DI 14:06
PROVIDERS: ATTEND Family Medicine
DX: M81.0 Age-related osteoporosis without current pathological fracture (principal)
CPT/HCPCS: 77080

== ENCOUNTER 2019-12-02 08:00 | Outpatient (CLI) | payer MEDICARE, OTHER ==
[2019-12-02 12:39] LABS: ALBUMIN 4.2 g/dL (3.2-5.5); ALBUMIN/GLOBULIN RATIO 1.8 (1.0-2.2); BILIRUBIN,TOTAL 0.7 mg/dL (0.2-1.0); CREATININE 0.9 mg/dL (0.4-1.0); TOTAL PROTEIN 6.5 g/dL (6.7-8.2)
[2019-12-02 13:18] LABS: CREATININE,URINE 56.9 mg/dL; MICROALBUMIN,URINE 0.4 mg/dL (0-300.0)
== END 2019-12-02 23:59 | disposition home or self-care (01) ==
LOC: LAB.WCP 08:00
PROVIDERS: ATTEND Family Medicine
DX: R35.8 Other polyuria (principal)
CPT/HCPCS: 36415; 80053; 81599; 82043; 82570; 84133; 84300; 84540

== ENCOUNTER 2020-03-09 15:45 | Outpatient (CLI) | payer MEDICARE, OTHER ==
[2020-03-10 20:22] LABS: CANDIDA GROUP DNA NEGATIVE (NEGATIVE); CANDIDA KRUSEI DNA NEGATIVE (NEGATIVE); TRICHOMONAS VAGINALIS DNA NEGATIVE (NEGATIVE)
== END 2020-03-09 23:59 | disposition home or self-care (01) ==
LOC: LAB.R 15:45
PROVIDERS: ATTEND Obstetrics & Gynecology
DX: N89.8 Other specified noninflammatory disorders of vagina (principal)
CPT/HCPCS: 87661; 87801

== ENCOUNTER 2020-09-22 08:00 | Outpatient (CLI) | payer MEDICARE, OTHER ==
[2020-09-22 19:12] LABS: BASOPHILS % (AUTO) 0.3 %; EOSINOPHILS # (AUTO) 0.1 10^3/uL (0.0-0.7); HGB - HEMOGLOBIN 13.6 g/dL (12.0-16.0); LYMPHOCYTES # (AUTO) 2.2 10^3/uL (1.5-3.5); MEAN CORPUSCULAR HEMOGLOBIN 31.3 pg (27.0-31.0); MEAN CORPUSCULAR HGB CONC 32.9 g/dL (32.0-36.0); MEAN CORPUSCULAR VOLUME 95.2 fL (81.0-99.0); MEAN PLATELET VOLUME 10.3 fL (7.9-10.8); MONOCYTES # (AUTO) 0.5 10^3/uL (0.0-1.0); MONOCYTES % (AUTO) 8.7 %; NEUTROPHILS % (AUTO) 51.8 %; PLT - PLATELET COUNT 149 10^3/uL (130-450); RED BLOOD COUNT 4.34 10^6/uL (4.20-5.40); RED CELL DISTRIBUTION WIDTH 13.4 % (12.0-15.0); WHITE BLOOD COUNT 5.9 x10^3/uL (4.8-10.8)
[2020-09-22 19:27] LABS: ALBUMIN 4.3 g/dL (3.2-5.5); ALKALINE PHOSPHATASE 67 IU/L (42-121); ALT ALANINE AMINOTRANSFERASE 24 IU/L (10-60); AST ASPARTATE AMINOTRANSFERASE 22 IU/L (10-42); BILIRUBIN,TOTAL 0.7 mg/dL (0.2-1.0); BUN - BLOOD UREA NITROGEN 41 mg/dL (6-20); CALCIUM 9.5 mg/dL (8.5-10.3); CARBON DIOXIDE - CO2 28 mmol/L (21-32); CHLORIDE 103 mmol/L (101-111); CHOL/HDL RATIO 2.7 (<4.4); CHOLESTEROL 235 mg/dL; CREATININE 0.7 mg/dL (0.4-1.0); GLUCOSE 96 mg/dL (70-100); HDL CHOLESTEROL 88 mg/dL; LDL CHOLESTEROL,CALCULATED 131 mg/dL; LDL/HDL RATIO 1.5 (<4.4); TOTAL PROTEIN 6.4 g/dL (6.7-8.2); VLDL CHOLESTEROL 16 mg/dL
== END 2020-09-22 23:59 ==
LOC: LAB.WCP 08:00
PROVIDERS: ATTEND Family Medicine
DX: F31.9 Bipolar disorder, unspecified (principal); E78.5 Hyperlipidemia, unspecified; E03.9 Hypothyroidism, unspecified; M81.0 Age-related osteoporosis without current pathological fracture
CPT/HCPCS: 36415; 80053; 80061; 82306; 83721; 84443; 85025

== ENCOUNTER 2020-10-04 17:00 | Emergency (ER) | payer MEDICARE, OTHER ==
[2020-10-04] MEDS ORDERED: HYDROmorphone 1 MG/ML CARPUJECT IVP STA (17:24)
[2020-10-04] MEDS ORDERED: SODIUM CHLORIDE 0.9% 1,000 ML IV STA (17:27)
--- NOTE | 2020-10-04 17:27 | ED Physician Documentation ---
History of Present Illness - Stated complaint Stated Complaint: NECK PX,LIGHTHEADED,VOMITING - Chief complaint Chief Complaint: General - Additonal information Additional information: 70-year-old female presents the emergency department for feeling lightheaded weak and vomiting. She reported that the symptoms began yesterday in the a.m. when she woke up. She denies any abdominal pain or diarrhea. However she reports that her neck has begun hurting and is stiff. She reports she had similar neck pain after a fall in 2019. No fevers. No diplopia arm or leg weakness slurred speech. [place] chest pain or shortness of breath. She does however report that her right ear was bleeding this morning when she woke up. Endorses Q-tip usage after showers. Review of Systems Constitutional: reports: Reviewed and negative Eyes: denies: Loss of vision, Decreased vision, Photophobia Ears: reports: Drainage/discharge (bleeding right ear). denies: Loss of hearing Nose: reports: Rhinorrhea / runny nose, Congestion Throat: reports: Reviewed and negative Cardiac: denies: Chest pain / pressure, Palpitations, Pedal edema, Calf pain Respiratory: denies: Dyspnea, Cough GI: reports: Vomiting. 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 PICKER: Ectopic , Ovarian cysts : Incontinence, Nocturia, Frequency HEENT: Chronic vision loss, Chronic sinusitis Psych: Depression, Anxiety, Bipolar disorder, Panic attacks, Post traumatic stress disorder, Obsessive compulsive disorder, Eating disorder Musculoskeletal: Osteoarthritis, Osteoporosis, Fatigue Derm: None - Past Surgical History Past Surgical History: Yes General: 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, Other Ortho: Other /LAST PICKER: Hysterectomy, Oophrectomy, Other - Present Medications Home Medications: Ambulatory Orders Medication Instructions Recorded Confirmed Quetiapine Fumarate [Seroquel] 400 mg PO DAILY PM #0 07/07/18 09/12/18 buPROPion HCl [Bupropion HCl Sr] 200 mg PO 0600,1500 #0 07/07/18 09/12/18 polyethylene glycoL 3350 [Miralax] 17 gm PO Q3D PRN 09/12/18 09/12/18 Clomipramine HCl 200 mg PO QPM 07/04/19 07/04/19 Levothyroxine [Synthroid] 75 mcg PO DAILY 07/04/19 07/04/19 Oxycodone HCl/Acetaminophen 1 - 2 each PO Q6H PRN #14 tablet 07/04/19 [Percocet 5-325 mg Tablet] QUEtiapine [SEROquel] 12.5 mg PO PRN PRN 07/04/19 07/04/19 traMADol [Ultram] 50 mg PO Q4-6H PRN 07/04/19 07/04/19 Amox/Clav 875/125 [Augmentin] 1 each PO Q12H #14 tablet 10/04/20 Ondansetron Odt [Zofran] 4 mg TL Q6H PRN #10 tablet 10/04/20 methocarbamoL [Methocarbamol] 750 mg PO BID PRN #15 tablet 10/04/20 - Allergies Allergies/Adverse Reactions: Allergies Allergy/AdvReac Type Severity Reaction Status Date / Time tetracycline Allergy Unknown Verified 10/04/20 17:02 - Social History Does the pt smoke?: No Smoking Status: Never smoker Does the pt drink ETOH?: No Does the pt have substance abuse?: No - Immunizations Immunizations are current?: No - POLST Patient has POLST: No POLST Status: Full Code PD ED PE EXPANDED - General General: Alert, No acute distress - HEENT HEENT: R TM loss of landmarks (Right TM is perforated with small amount of bloody purulent drainage in canal) - Neck Neck: Soft tissue TTP (bilateral cervical spinaouparious uscle tenderness without swellign/erythema), Limited ROM. No: Brudzinki's, Kernig's, Bony TTP - Cardiac Cardiac: Regular Rate, Regular Rhythm, Radial strong equal, Pedal strong equal, Cap refill < 2 sec. No: Murmur Present - Respiratory Respiratory: Clear to ausultation jonah. No: Distress, Labored - Abdomen Abdomen: Normal Bowel sounds. No: Tender to palpation - Derm Derm: Normal color. No: Rash - Extremities Extremities: Normal. No: Deformity, Tenderness - Neuro Neuro: Alert and Oriented X 3, CNII-XII intact, Cerebellar nl, Normal gait, Normal finger nose, Normal speech - GCS Eye Opening: Spontaneous Motor: Obeys Commands Verbal: Oriented Total: 15 Results - Vitals Vitals: Vital Signs - 24 hr 10/04/20 10/04/20 17:03 17:08 Temperature 37.4 C 37.4 C Heart Rate 95 95 Respiratory 20 20 Rate Blood Pressure 141/118 H 141/100 H O2 Saturation 100 100 Oxygen O2 Source Room air - EKG (time done) 1726 Rate: Rate (enter#) (84) Rhythm: NSR Oneco: Other (LAFB) Intervals: Normal NV QRS: LVH, Poor R wave progression Ischemia: Normal ST segments Compare to prior EKG: Unchanged from prior EKG Computer interpretation: Agree with computer - Labs Labs: Laboratory Tests 10/04/20 10/04/20 10/04/20 17:10 17:43 17:43 WBC 12.3 H RBC 4.60 Hgb 14.3 Hct 42.5 MCV 92.4 MCH 31.1 H MCHC 33.6 RDW 13.6 Plt Count 113 L MPV 9.4 Neut # (Auto) 10.2 H Lymph # (Auto) 0.7 L [place] # (Auto) 1.1 H Eos # (Auto) 0.2 Baso # (Auto) 0.0 Absolute Nucleated RBC 0.00 Nucleated RBC % 0.0 Manual Slide Review Indicated Platelet Estimate DECREASED (<130,000) Platelet Morphology NORMAL APPEARANCE RBC Morph Micro Appear NORMAL APPEARANCE Sodium 134 L Potassium 3.3 L Chloride 100 L Carbon Dioxide 21 Anion Gap 13.0 BUN 26 H Creatinine 0.8 Estimated GFR (MDRD) 71 L Glucose 123 H Calcium 9.1 Total Bilirubin 1.1 H AST 19 ALT 20 Alkaline Phosphatase 66 Troponin I High Sens Total Protein 7.4 Albumin 4.4 Globulin 3.0 Albumin/Globulin Ratio 1.5 Lipase 25 Urine Color YELLOW Urine Clarity HAZY Urine pH 6.5 Ur Specific [place] 1.015 Urine Protein TRACE Urine Glucose (UA) NEGATIVE Urine Ketones 40 H Urine Occult Blood SMALL H Urine Nitrite NEGATIVE Urine Bilirubin NEGATIVE Urine Urobilinogen 0.2 (NORMAL) Ur Leukocyte Esterase NEGATIVE Urine RBC 6-10 H Urine WBC 0-3 Ur Squamous Epith Cells RARE Squamous Urine Bacteria Rare Ur Microscopic Review INDICATED Urine Culture Comments NOT INDICATED 10/04/20 17:43 WBC RBC Hgb Hct MCV MCH MCHC RDW Plt Count MPV Neut # (Auto) Lymph # (Auto) [place] # (Auto) Eos # (Auto) Baso # (Auto) Absolute Nucleated RBC Nucleated RBC % Manual Slide Review Platelet Estimate Platelet Morphology RBC Morph Micro Appear Sodium Potassium Chloride Carbon Dioxide Anion Gap BUN Creatinine Estimated GFR (MDRD) Glucose Calcium Total Bilirubin AST ALT Alkaline Phosphatase Troponin I High Sens 8.3 Total Protein Albumin Globulin Albumin/Globulin Ratio Lipase Urine Color Urine Clarity Urine pH Ur Specific [place] Urine Protein Urine Glucose (UA) Urine Ketones Urine Occult Blood Urine Nitrite Urine Bilirubin Urine Urobilinogen Ur Leukocyte Esterase Urine RBC Urine WBC Ur Squamous Epith Cells Urine Bacteria Ur Microscopic Review Urine Culture Comments - Rads (name of study) CXR Radiology: Final report received (No acute cardiopulmonary process) PD MEDICAL DECISION MAKING - ED course Complexity details: reviewed results, re-evaluated patient, considered differential, d/w patient ED course: 70-year-old female presents emergency department for evaluation of feeling lightheaded weak and vomiting. Symptoms began about 24 hours ago. She also reports drainage from her right ear. She does have past medical history includes hyperlipidemia and hypothyroidism as well as a medical disability from the [place]. Here in the emergency department her EKG was initially sinus tach and nonischemic. High-sensitivity troponin was negative. Chest x-ray without any acute focal abnormalities. Screening labs reveal white blood cell count of 12.3 thousand. Electrolytes without any focal worrisome abnormalities. She was given Zofran 1 L of IV fluids here in the emergency department with marked improvement in her lightheadedness. Urine showed no signs of infection. On physical exam I did note that her right tympanic membrane is ruptured. She will be started on Augmentin for this. A prescription for methocarbamol will also be given given her neck spasms on exam. Has had this similarly in the past. Emergent return precautions discussed for worsening symptoms, fevers shortness of breath or chest pain. Departure - Departure Clinical Impression: Light headed, Neck pain Traumatic rupture of right ear drum Qualifiers: Encounter type: initial encounter Qualified Code(s): S09.21XA - Traumatic rupture of right ear drum, initial encounter Instructions: Eardrum Rupture Prescriptions: Amox/Clav 875/125 [Augmentin] 1 each PO Q12H #14 tablet methocarbamoL [Methocarbamol] 750 mg PO BID PRN #15 tablet PRN Reason: Spasms Ondansetron Odt [Zofran] 4 mg TL Q6H PRN #10 tablet PRN Reason: Nausea / Vomiting Comments: Glad that you are feeling better. Your lightheadedness is likely due to a little dehydration after vomiting. We gave you IV fluids here in the emergency department and that improved your symptoms. I have prescribed a little Zofran to help with the nausea at home. Your right eardrum is however ruptured. This is likely because of the Q-tips that you were using at home. Please avoid using Q-tips for the next few weeks and avoid getting water in your ear. I have prescribed antibiotics for this eardrum rupture. Please schedule an appointment with your primary care provider for follow-up of this ED visit. Return to the emergency department if you develop fevers, or short of breath develop chest pain or have any fainting episodes.
[2020-10-04 17:51] LABS: BASOPHILS % (AUTO) 0.2 %; EOSINOPHILS # (AUTO) 0.2 10^3/uL (0.0-0.7); EOSINOPHILS % (AUTO) 1.7 %; HGB - HEMOGLOBIN 14.3 g/dL (12.0-16.0); LYMPHOCYTES # (AUTO) 0.7 10^3/uL (1.5-3.5); LYMPHOCYTES % (AUTO) 5.8 %; MEAN CORPUSCULAR HEMOGLOBIN 31.1 pg (27.0-31.0); MEAN CORPUSCULAR HGB CONC 33.6 g/dL (32.0-36.0); MEAN CORPUSCULAR VOLUME 92.4 fL (81.0-99.0); MEAN PLATELET VOLUME 9.4 fL (7.9-10.8); MONOCYTES # (AUTO) 1.1 10^3/uL (0.0-1.0); MONOCYTES % (AUTO) 9.2 %; NEUTROPHILS # (AUTO) 10.2 10^3/uL (1.5-6.6); NEUTROPHILS % (AUTO) 82.7 %; PLT - PLATELET COUNT 113 10^3/uL (130-450); RED CELL DISTRIBUTION WIDTH 13.6 % (12.0-15.0); WHITE BLOOD COUNT 12.3 x10^3/uL (4.8-10.8)
[2020-10-04 18:07] LABS: ALBUMIN 4.4 g/dL (3.2-5.5); ALBUMIN/GLOBULIN RATIO 1.5 (1.0-2.2); BILIRUBIN,TOTAL 1.1 mg/dL (0.2-1.0); CALCIUM 9.1 mg/dL (8.5-10.3); CREATININE 0.8 mg/dL (0.4-1.0); TOTAL PROTEIN 7.4 g/dL (6.7-8.2)
[2020-10-04 18:09] LABS: BILIRUBIN,URINE NEGATIVE (NEGATIVE); GLUCOSE, URINE (UA) NEGATIVE (NEGATIVE); KETONES,URINE (UA) 40 mg/dL (NEGATIVE); LEUKOCYTE ESTERASE, URINE NEGATIVE (NEGATIVE); NITRITE,URINE NEGATIVE (NEGATIVE); OCCULT BLOOD,URINE SMALL (NEGATIVE); PH,URINE 6.5 PH (5.0-7.5); PROTEIN,URINE TRACE mg/dL (NEGATIVE); UROBILINOGEN,URINE 0.2 (NORMAL) E.U./dL (NORMAL)
[2020-10-04 18:14] LABS: CLARITY,URINE HAZY (CLEAR)
[2020-10-04 18:27] LABS: PLATELET ESTIMATE, MANUAL DECREASED (<130,000) (NORMAL); PLATELET MORPHOLOGY NORMAL APPEARANCE (NORMAL); RBC MORPHOLOGY (MULTIPLE) NORMAL APPEARANCE (NORMAL)
[2020-10-04 18:30] LABS: BACTERIA,URINE Rare /HPF (None Seen); SQUAMOUS EPITHELIAL CELL,UR RARE Squamous (<= Few)
--- NOTE | 2020-10-04 18:43 | XRAY Report ---
PROCEDURE: Chest 1 View X-Ray INDICATIONS: Chest Pain TECHNIQUE: One view of the chest was acquired. COMPARISON: 07/26/2018 FINDINGS: Surgical changes and devices: None. Lungs and pleura: No pleural effusions or pneumothorax. Lungs are clear. Mediastinum: Mediastinal contours appear normal. Heart size is normal. Bones and chest wall: No suspicious bony lesions. Overlying soft tissues appear unremarkable. IMPRESSION: No acute process. Reviewed by: Jeannie Walter MD on 10/04/2020 6:42 PM PST Approved by: Jeannie Walter MD on 10/04/2020 6:42 PM [facility] Station ID: [id number]
[2020-10-04] MEDS ORDERED: ONDANSETRON 4 MG/2 ML VIAL IVP STA (18:46)
[2020-10-04 19:11] VITALS: BP 148/83
== END 2020-10-04 19:16 | disposition home or self-care (01) ==
LOC: ED 17:00
DX: R42 Dizziness and giddiness (principal); R11.2 Nausea with vomiting, unspecified; M54.2 Cervicalgia; S09.21XA Traumatic rupture of right ear drum, initial encounter; X58.XXXA Exposure to other specified factors, initial encounter; I44.4 Left anterior fascicular block; E78.5 Hyperlipidemia, unspecified; E03.9 Hypothyroidism, unspecified
CPT/HCPCS: 36415; 71045; 80053; 81001; 83690; 84484; 85025; 93005; 96374; 96375; 99284; J1170; 81003; 87086

== ENCOUNTER 2020-10-06 18:18 | Emergency (ER) | payer MEDICARE, OTHER ==
[2020-10-06] MEDS ORDERED: SODIUM CHLORIDE 0.9% 1,000 ML IV STA ×2 (19:14→19:51)
[2020-10-06] MEDS ORDERED: KETOROLAC 30 MG/ML VIAL IVP STA (19:14)
[2020-10-06] MEDS ORDERED: ONDANSETRON 4 MG/2 ML VIAL IVP STA (19:14)
[2020-10-06 19:38] LABS: BASOPHILS % (AUTO) 0.2 %; EOSINOPHILS % (AUTO) 0.4 %; HGB - HEMOGLOBIN 13.4 g/dL (12.0-16.0); LYMPHOCYTES # (AUTO) 1.5 10^3/uL (1.5-3.5); LYMPHOCYTES % (AUTO) 16.6 %; MEAN CORPUSCULAR HEMOGLOBIN 30.5 pg (27.0-31.0); MEAN CORPUSCULAR HGB CONC 33.1 g/dL (32.0-36.0); MEAN CORPUSCULAR VOLUME 92.3 fL (81.0-99.0); MEAN PLATELET VOLUME 9.5 fL (7.9-10.8); MONOCYTES # (AUTO) 0.9 10^3/uL (0.0-1.0); MONOCYTES % (AUTO) 10.3 %; NEUTROPHILS # (AUTO) 6.5 10^3/uL (1.5-6.6); NEUTROPHILS % (AUTO) 72.2 %; PLT - PLATELET COUNT 145 10^3/uL (130-450); RED BLOOD COUNT 4.39 10^6/uL (4.20-5.40); RED CELL DISTRIBUTION WIDTH 13.3 % (12.0-15.0); WHITE BLOOD COUNT 9.1 x10^3/uL (4.8-10.8)
[2020-10-06 19:49] LABS: ALBUMIN 3.6 g/dL (3.2-5.5); BILIRUBIN,TOTAL 0.7 mg/dL (0.2-1.0); CALCIUM 9.2 mg/dL (8.5-10.3); CREATININE 0.8 mg/dL (0.4-1.0); TOTAL PROTEIN 7.1 g/dL (6.7-8.2)
[2020-10-06] MEDS ORDERED: diazePAM INJ 5 MG/ML SYRINGE IVP STA (19:51)
[2020-10-06 20:21] LABS: BILIRUBIN,URINE NEGATIVE (NEGATIVE); GLUCOSE, URINE (UA) NEGATIVE (NEGATIVE); KETONES,URINE (UA) 15 mg/dL (NEGATIVE); LEUKOCYTE ESTERASE, URINE NEGATIVE (NEGATIVE); NITRITE,URINE NEGATIVE (NEGATIVE); OCCULT BLOOD,URINE SMALL (NEGATIVE); PROTEIN,URINE TRACE mg/dL (NEGATIVE); UROBILINOGEN,URINE 0.2 (NORMAL) E.U./dL (NORMAL)
[2020-10-06 20:23] VITALS: BP 136/85
[2020-10-06 20:24] LABS: CLARITY,URINE CLEAR (CLEAR)
--- NOTE | 2020-10-06 20:25 | ED Physician Documentation ---
History of Present Illness - Stated complaint Stated Complaint: WEAKNESS,NECK PX - Chief complaint Chief Complaint: General - History obtained from History obtained from: Patient - History of Present Illness Timing: How many days ago (3-4) Pain level max: 9 Pain level now: 6 - Additonal information Additional information: Patient is a 70-year-old female who presents to the emergency department today stating that she has felt generally unwell for the past several days. She states that she was having increasing neck pain. She states the Robaxin that she received is not helping. She was seen here a few days ago, diagnosed with cervical muscle spasm and a ruptured right eardrum. She has been nauseated as well. Not currently vomiting. No chest pain. No shortness of breath. Worse with movement, better with rest. Has occasional intermittent headaches as well, these are not severe. The neck pain was gradual in onset. She does not recall any injury. No fevers. No chills. No cough. No congestion Review of Systems Ten Systems: 10 systems reviewed and negative Constitutional: denies: Fever, Chills Throat: denies: Sore throat Cardiac: denies: Chest pain / pressure Respiratory: denies: Cough : denies: Dysuria Skin: denies: Rash Musculoskeletal: denies: Back pain Neurologic: denies: Generalized weakness, Focal weakness, Numbness, Confused, Altered mental status PD PAST MEDICAL HISTORY - Past Medical History Past Medical History: Yes Cardiovascular: High cholesterol, Atrial fibrillation Respiratory: Asthma, Pneumonia Neuro: Dementia, Headaches, Seizure disorder, Other Endocrine/Autoimmune: HyPOthyroidism GI: GI bleed, Chronic diarrhea, Chronic constipation, Hemorrhoids 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 , Ovarian cysts : Incontinence, Nocturia, Frequency HEENT: Chronic vision loss, Chronic sinusitis Psych: Depression, Anxiety, Bipolar disorder, Panic attacks, Post traumatic stress disorder, Obsessive compulsive disorder, Eating disorder Musculoskeletal: Osteoarthritis, Osteoporosis, Fatigue Derm: None - Past Surgical History Past Surgical History: Yes General: 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, Other Ortho: Other /GRAPHIC ENGINEER: Hysterectomy, Oophrectomy, Other - Present Medications Home Medications: Ambulatory Orders Medication Instructions Recorded Confirmed Quetiapine Fumarate [Seroquel] 400 mg PO DAILY PM #0 07/07/18 09/12/18 buPROPion HCl [Bupropion HCl Sr] 200 mg PO 0600,1500 #0 07/07/18 09/12/18 polyethylene glycoL 3350 [Miralax] 17 gm PO Q3D PRN 09/12/18 09/12/18 Clomipramine HCl 200 mg PO QPM 07/04/19 07/04/19 Levothyroxine [Synthroid] 75 mcg PO DAILY 07/04/19 07/04/19 Oxycodone HCl/Acetaminophen 1 - 2 each PO Q6H PRN #14 tablet 07/04/19 [Percocet 5-325 mg Tablet] QUEtiapine [SEROquel] 12.5 mg PO PRN PRN 07/04/19 07/04/19 traMADol [Ultram] 50 mg PO Q4-6H PRN 07/04/19 07/04/19 Amox/Clav 875/125 [Augmentin] 1 each PO Q12H #14 tablet 10/04/20 Ondansetron Odt [Zofran] 4 mg TL Q6H PRN #10 tablet 10/04/20 methocarbamoL [Methocarbamol] 750 mg PO BID PRN #15 tablet 10/04/20 HYDROcod/ACETAM 5/325 [[place] 5/325] 1 - 2 ea PO Q6H PRN #14 tablet 10/06/20 Meloxicam [Mobic] 7.5 mg PO BID PRN #20 tablet 10/06/20 diazePAM [Valium] 5 mg PO TID PRN #10 tablet 10/06/20 - Allergies Allergies/Adverse Reactions: Allergies Allergy/AdvReac Type Severity Reaction Status Date / Time tetracycline Allergy Unknown Verified 10/06/20 18:29 - Social History Does the pt smoke?: No Smoking Status: Never smoker Does the pt drink ETOH?: No Does the pt have substance abuse?: No - Immunizations Immunizations are current?: No - POLST Patient has POLST: No POLST Status: Full Code PD ED PE NORMAL - Vitals Vital signs reviewed: Yes - General General: Alert and oriented X 3, No acute distress, Well developed/nourished - HEENT HEENT: Atraumatic, PERRL, EOMI, Ears normal (Right tympanic membrane is ruptured. No bleeding. No purulence), Moist mucous membranes, Pharynx benign - Neck Neck: No JVD, No bruit, Other (No midline tenderness to palpation. Paraspinal spasm present bilateral upper cervical area. Limited range of motion secondary to pain.) - Cardiac Cardiac: RRR, Strong equal pulses - Respiratory Respiratory: No respiratory distress, Clear bilaterally - Abdomen Abdomen: Soft, Non tender, Non distended - Back Back: No spinal TTP - Derm Derm: Warm and dry - Extremities Extremities: No edema, No calf tenderness / cord - Neuro Neuro: Alert and oriented X 3, car mechanic helper 2-12 intact, No motor deficit, No sensory deficit, Normal speech Eye Opening: Spontaneous Motor: Obeys Commands Verbal: Oriented GCS Score: 15 - Psych Psych: Normal mood, Normal affect Results - Vitals Vitals: Vital Signs - 24 hr 10/06/20 10/06/20 18:30 20:22 Temperature 98.8 C H Heart Rate 97 83 Respiratory 18 18 Rate Blood Pressure 132/80 H 136/85 H O2 Saturation 99 100 Oxygen O2 Source Room air - Labs Labs: Laboratory Tests 10/06/20 10/06/20 10/06/20 19:29 19:29 19:47 WBC 9.1 RBC 4.39 Hgb 13.4 Hct 40.5 MCV 92.3 MCH 30.5 MCHC 33.1 RDW 13.3 Plt Count 145 MPV 9.5 Neut # (Auto) 6.5 Lymph # (Auto) 1.5 [place] # (Auto) 0.9 Eos # (Auto) 0.0 Baso # (Auto) 0.0 Absolute Nucleated RBC 0.00 Nucleated RBC % 0.0 Sodium 139 Potassium 3.0 L Chloride 101 Carbon Dioxide 23 Anion Gap 15.0 H BUN 29 H Creatinine 0.8 Estimated GFR (MDRD) 71 L Glucose 107 H Calcium 9.2 Total Bilirubin 0.7 AST 37 ALT 32 Alkaline Phosphatase 63 Total Protein 7.1 Albumin 3.6 Globulin 3.5 Albumin/Globulin Ratio 1.0 Urine Color YELLOW Urine Clarity CLEAR Urine pH 6.0 Ur Specific [place] 1.010 Urine Protein TRACE Urine Glucose (UA) NEGATIVE Urine Ketones 15 H Urine Occult Blood SMALL H Urine Nitrite NEGATIVE Urine Bilirubin NEGATIVE Urine Urobilinogen 0.2 (NORMAL) Ur Leukocyte Esterase NEGATIVE Urine RBC 6-10 H Urine WBC 0-3 Ur Squamous Epith Cells RARE Squamous Urine Bacteria Rare Ur Microscopic Review INDICATED Urine Culture Comments NOT INDICATED PD MEDICAL DECISION MAKING - ED course Complexity details: reviewed results, re-evaluated patient, considered differential, d/w patient ED course: Patient is well-appearing, nontoxic. Afebrile. No significant findings on laboratory testing other than dehydration. Feels better after IV fluids, Toradol, Valium. She is moving her neck better. Limited range of motion secondary to pain. No meningeal signs. No evidence of subarachnoid hemorrhage. No sudden onset headache. We will prescribe medication for home and have her follow-up with her doctor for further care. She also does have a ruptured right tympanic membrane, will continue her current medications for this. Patient counseled regarding signs and symptoms for which I believe and urgent re- evaluation would be necessary. Patient with good understanding of and agreement to plan and is comfortable going home at this time This document was made in part using voice recognition software. While efforts are made to proofread this document, sound alike and grammatical errors may occur. Departure - Departure Disposition: 01 Home, Self Care Clinical Impression: Neck muscle spasm, Dehydration Condition: Good Instructions: ED Dehydration, ED Spasm Neck No Injury Follow-Up: Jeremie Hull DO [Primary Care Provider] - Within 1 week Prescriptions: Meloxicam [Mobic] 7.5 mg PO BID PRN #20 tablet PRN Reason: Pain HYDROcod/ACETAM 5/325 [[place] 5/325] 1 - 2 ea PO Q6H PRN #14 tablet PRN Reason: Pain diazePAM [Valium] 5 mg PO TID PRN #10 tablet PRN Reason: Spasms Comments: Return if you worsen. Follow-up with your doctor for further care. Make sure you continue to gently move your neck as this will help with the spasm. Heating pads may help as well. Do not take the methocarbamol with the Valium. Do not drink alcohol or drive while on narcotic pain medicine. Note that many narcotic pain relievers also contain tylenol/acetaminophen. Please ensure that your total dose of acetaminophen from all sources does not exceed 3 grams (3000mg) per day. You may constipated on this medication, take a stool softener such as "Colace" twice a day while you are on it. Also recommend a [id number] laxative such as senna or MiraLAX any day that you do not have a bowel movement. If you received narcotic pain medication in the emergency department, do not drive or operate machinery for the next 24 hours.
[2020-10-06 20:31] LABS: BACTERIA,URINE Rare /HPF (None Seen); SQUAMOUS EPITHELIAL CELL,UR RARE Squamous (<= Few)
== END 2020-10-06 20:51 | disposition home or self-care (01) ==
LOC: ED 18:18
DX: M62.838 Other muscle spasm (principal); H72.91 Unspecified perforation of tympanic membrane, right ear; E86.0 Dehydration; I48.91 Unspecified atrial fibrillation
CPT/HCPCS: 36415; 80053; 81001; 81003; 85025; 87086; 96361; 96374; 96375; 99285

== ENCOUNTER 2020-10-16 14:11 | Outpatient (CLI) | payer MEDICARE, OTHER ==
--- NOTE | 2020-10-16 15:17 | DEXA Report ---
PROCEDURE: Dexa Spine and/or Hip INDICATIONS: OSTEOPOROSIS TECHNIQUE: Dual energy x-ray absorptiometry (DXA) was performed on a eeGeo System. Regions measur ed are the AP Spine, femoral neck, and if needed forearm. COMPARISON: 10/18/2019. FINDINGS: Lumbar Spine: Bone Mineral Density 0.817 g/cm/cm,T score -3.0, osteoporosis, and this represents a statistically significant improvement of approximately 6.5% with reference to the study from 1 year ago. Left Hip: Bone Mineral Density 0.649 g/cm/cm,T score -2.8, osteoporosis, and this represents a statistically s ignificant improvement in bone mineral density of 6.6% from the study from 1 year ago. Left Femoral Neck: Bone Mineral Density 0.752 g/cm/cm, T score -2.1, osteopenia (T score greater or equal to -1.0: NORMAL) (T score from -1.1 to -2.4: OSTEOPENIA) (T score less than or equal to -2.5 to: OSTEOPOROSIS) Impression: Osteoporosis remains present at both the lumbosacral spine and left hip overall when comp ared to the prior study, but there has been a statistically significant improvement in overall bone m ineral density in each of these areas by approximately 6.6%. The bone mineral density of the femoral neck on the left is osteopenic. Continued treatment and follow-up in 1 year likely is warranted. Patients with diagnosis of osteoporosis or osteopenia should have regular bone mineral density assess ment. For those eligible for Medicare, routine testing is allowed once every 2 years. Testing frequ ency can be increased for patients who have rapidly progressing disease or for those who are receivin g medical therapy to restore bone mass. Reviewed by: Theodore Burris MD on 10/16/2020 3:15 PM PST Approved by: Theodore Burris MD on 10/16/2020 3:15 PM PST Station ID: [id number]
== END 2020-10-16 14:12 | disposition home or self-care (01) ==
LOC: DI 14:11
PROVIDERS: ATTEND Family Medicine
DX: M81.0 Age-related osteoporosis without current pathological fracture (principal)

== ENCOUNTER 2021-11-05 17:04 | Outpatient (CLI) | payer MEDICARE, OTHER ==
--- NOTE | 2021-11-05 21:16 | XRAY Report ---
PROCEDURE: Shoulder 2 View LT INDICATIONS: SHOULDER PAIN, LEFT TECHNIQUE: 2 views of the shoulder were acquired. COMPARISON: None. FINDINGS: Bones: No fractures or dislocations. No suspicious bony lesions. Visualized ribs appear intact. M ild periarticular osteophyte formation at the acromioclavicular joint. Soft tissues: No suspicious soft tissue calcifications. IMPRESSION: Acromioclavicular joint osteoarthritis. No acute fracture. No osseous lesion. If symptom s and/or clinical suspicion for pathology continue, further assessment with repeat plain films, or ad vanced imaging (e.g., CT, MRI, or bone scan) is recommended for further assessment. Reviewed by: Jeannie Gomez MD on 11/05/2021 9:15 PM PST Approved by: Jeannie Gomez MD on 11/05/2021 9:15 PM [facility] Station ID: [id number]
== END 2021-11-05 17:05 | disposition home or self-care (01) ==
LOC: DI.N 17:04
PROVIDERS: ATTEND Family Medicine
DX: M19.012 Primary osteoarthritis, left shoulder (principal)

== ENCOUNTER 2021-11-05 17:10 | Outpatient (CLI) | payer MEDICARE, OTHER ==
[2021-11-05 21:15] LABS: BASOPHILS % (AUTO) 0.5 %; EOSINOPHILS # (AUTO) 0.3 10^3/uL (0.0-0.7); EOSINOPHILS % (AUTO) 3.3 %; HCT - HEMATOCRIT 42.3 % (37.0-47.0); HGB - HEMOGLOBIN 13.7 g/dL (12.0-16.0); LYMPHOCYTES # (AUTO) 2.1 10^3/uL (1.5-3.5); LYMPHOCYTES % (AUTO) 27.2 %; MEAN CORPUSCULAR HEMOGLOBIN 32.1 pg (27.0-31.0); MEAN CORPUSCULAR HGB CONC 32.4 g/dL (32.0-36.0); MEAN CORPUSCULAR VOLUME 99.1 fL (81.0-99.0); MEAN PLATELET VOLUME 10.3 fL (7.9-10.8); MONOCYTES # (AUTO) 0.6 10^3/uL (0.0-1.0); MONOCYTES % (AUTO) 8.3 %; NEUTROPHILS # (AUTO) 4.6 10^3/uL (1.5-6.6); NEUTROPHILS % (AUTO) 60.4 %; PLT - PLATELET COUNT 152 10^3/uL (130-450); RED BLOOD COUNT 4.27 10^6/uL (4.20-5.40); RED CELL DISTRIBUTION WIDTH 13.9 % (12.0-15.0); WHITE BLOOD COUNT 7.6 x10^3/uL (4.8-10.8)
[2021-11-05 21:28] LABS: ALBUMIN 4.4 g/dL (3.2-5.5); ALBUMIN/GLOBULIN RATIO 1.9 (1.0-2.2); BILIRUBIN,TOTAL 0.6 mg/dL (0.2-1.0); CALCIUM 9.2 mg/dL (8.5-10.3); CREATININE 0.8 mg/dL (0.4-1.0); TOTAL PROTEIN 6.7 g/dL (6.7-8.2)
[2021-11-05 21:44] LABS: THYROID STIMULATING HORMONE 2.25 uIU/mL (0.34-5.60)
== END 2021-11-05 17:11 | disposition home or self-care (01) ==
LOC: LAB.N 17:10
PROVIDERS: ATTEND Family Medicine
DX: E03.9 Hypothyroidism, unspecified (principal); R63.4 Abnormal weight loss; M19.012 Primary osteoarthritis, left shoulder
CPT/HCPCS: 36415; 80053; 84443; 85025

== ENCOUNTER 2021-11-15 16:31 | Outpatient (CLI) | payer MEDICARE, OTHER ==
[2021-11-15] MEDS ORDERED: IOVERSOL 320 50 ML VIAL ONE (16:56)
[2021-11-15] MEDS ORDERED: IOVERSOL 320 100 ML VIAL IVP ONE ×2 (16:56→18:51)
--- NOTE | 2021-11-16 13:09 | CT Report ---
PROCEDURE: Abdomen/Pelvis W INDICATIONS: CHRONIC CONSTIPATION CONTRAST: IV CONTRAST: Optiray 320 ml: 100 PO CONTRAST: Optiray 320 ml50 TECHNIQUE: After the administration of IV and oral contrast, 5 mm thick sections acquired from the diaphragms to the symphysis. 5 mm thick coronal and sagittal reformats were acquired. For radiation dose reducti on, the following was used: automated exposure control, adjustment of mA and/or kV according to sabrina ent size. COMPARISON: None. FINDINGS: Image quality: Excellent. ABDOMEN: Lung bases: Scattered thin-walled subcentimeter cysts in both lower lungs. Lung bases are otherwise clear. Very small hiatal hernia. Heart size is normal. Mitral annular calcification present. Solid organs: Subcentimeter ovoid hypodensities occasionally in the liver too small to characterize, likely cysts. Liver and spleen are otherwise normal in size and enhancement. Gallbladder is partial ly decompressed and appears normal. Biliary system is non dilated. Pancreas enhances normally. No adrenal nodules. Kidneys are symmetric in enhancement. Small upper pole cortical medullary cyst on t he right. Upper pole cortical medullary or parapelvic cyst on the left measuring about 3.3 cm. There is mild left hydronephrosis. Subcentimeter cortical cyst in the lower pole on the left is present. No visible left hydroureter. Peritoneum and bowel: Moderate to large quantity of solid stool throughout the colon. No transition p oint. No suspicious colon wall thickening. There is air in the distal rectum. Small bowel loops are n ormal. Stomach is filled with ingested contrast. No free fluid or free air. Nodes and vessels: No retroperitoneal or mesenteric adenopathy by size criteria. Aorta and inferior vena cava are normal in size. Miscellaneous: No ventral hernias. PELVIS: Genitourinary: Bladder wall thickness is normal. There is a pessary in place. Miscellaneous: No inguinal hernias or adenopathy. No pelvic floor prolapse. Bones: No suspicious bony lesions. Minor superior endplate depression of T11. No other vertebral bod y fractures. IMPRESSION: 1. Moderate to large quantity of solid stool throughout the colon without transition point. This is c onsistent with history of chronic constipation. 2. Mild left hydronephrosis without hydroureter or visible calcifications. Reviewed by: Janie Martínez MD on 11/16/2021 1:08 PM PDT Approved by: Janie Martínez MD on 11/16/2021 1:08 PM PDT Station ID: [id number]
--- NOTE | 2021-11-16 18:18 | XRAY Report ---
PROCEDURE: Knee 4 View LT INDICATIONS: LEFT KNEE PAIN TECHNIQUE: 4 views of the left knee(s) were acquired. COMPARISON: 07/01/2018 FINDINGS: Bones: Extensive patellar fusion hardware. There is a nonunited chronic distracted comminuted patell ar fracture. No acute fractures or dislocations. Mild medial and lateral compartment degenerative nahed nge. Soft tissues: No joint effusion. No suspicious soft tissue calcifications. IMPRESSION: Extensive patellar fusion hardware in place. 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 Reviewed by: Leroy Mcdonald MD on 11/16/2021 6:17 PM PDT Approved by: Leroy Mcdonald MD on 11/16/2021 6:17 PM PDT Station ID: [id number]
== END 2021-11-15 16:32 | disposition home or self-care (01) ==
LOC: DI 16:31
PROVIDERS: ATTEND Family Medicine
DX: K59.09 Other constipation (principal); S82.042K Displaced comminuted fracture of left patella, subsequent encounter for closed fracture with nonunion; N13.30 Unspecified hydronephrosis
CPT/HCPCS: 73564; 74177; Q9967

== ENCOUNTER 2021-11-18 17:41 | Outpatient (CLI) | payer MEDICARE, OTHER ==
[2021-11-18 21:01] LABS: BASOPHILS % (AUTO) 0.5 %; EOSINOPHILS # (AUTO) 0.3 10^3/uL (0.0-0.7); EOSINOPHILS % (AUTO) 3.1 %; HCT - HEMATOCRIT 41.6 % (37.0-47.0); HGB - HEMOGLOBIN 13.6 g/dL (12.0-16.0); LYMPHOCYTES # (AUTO) 2.4 10^3/uL (1.5-3.5); LYMPHOCYTES % (AUTO) 27.7 %; MEAN CORPUSCULAR HEMOGLOBIN 31.9 pg (27.0-31.0); MEAN CORPUSCULAR HGB CONC 32.7 g/dL (32.0-36.0); MEAN CORPUSCULAR VOLUME 97.4 fL (81.0-99.0); MEAN PLATELET VOLUME 10.1 fL (7.9-10.8); MONOCYTES # (AUTO) 0.6 10^3/uL (0.0-1.0); MONOCYTES % (AUTO) 7.5 %; NEUTROPHILS # (AUTO) 5.2 10^3/uL (1.5-6.6); NEUTROPHILS % (AUTO) 60.8 %; PLT - PLATELET COUNT 156 10^3/uL (130-450); RED BLOOD COUNT 4.27 10^6/uL (4.20-5.40); WHITE BLOOD COUNT 8.5 x10^3/uL (4.8-10.8)
[2021-11-18 21:18] LABS: ALBUMIN 4.5 g/dL (3.2-5.5); ALKALINE PHOSPHATASE 61 IU/L (42-121); ALT ALANINE AMINOTRANSFERASE 19 IU/L (10-60); AST ASPARTATE AMINOTRANSFERASE 17 IU/L (10-42); BILIRUBIN,TOTAL 0.5 mg/dL (0.2-1.0); BUN - BLOOD UREA NITROGEN 51 mg/dL (6-20); CALCIUM 9.4 mg/dL (8.5-10.3); CARBON DIOXIDE - CO2 28 mmol/L (21-32); CHLORIDE 102 mmol/L (101-111); CREATININE 0.8 mg/dL (0.4-1.0); CRP - C-REACTIVE PROTEIN < 1.0 mg/dL (0-1.0); GFR - MDRD 71 (>89); GLUCOSE 86 mg/dL (70-100); POTASSIUM 3.3 mmol/L (3.5-5.0); SODIUM 140 mmol/L (135-145); TOTAL PROTEIN 6.8 g/dL (6.7-8.2)
== END 2021-11-18 17:42 | disposition home or self-care (01) ==
LOC: LAB.N 17:41
PROVIDERS: ATTEND Family Medicine
DX: L27.0 Generalized skin eruption due to drugs and medicaments taken internally (principal); T50.905S Adverse effect of unspecified drugs, medicaments and biological substances, sequela; R31.9 Hematuria, unspecified
CPT/HCPCS: 36415; 80053; 80061; 81002; 83721; 85025; 85651; 86140

== ENCOUNTER 2022-02-11 14:34 | Outpatient (CLI) | payer MEDICARE, OTHER ==
--- NOTE | 2022-02-11 16:09 | DEXA Report ---
PROCEDURE: Dexa Spine and/or Hip INDICATIONS: OSTEOPOROSIS TECHNIQUE: Dual energy x-ray absorptiometry (DXA) was performed on a [employer] System. Regions measur ed are the AP Spine, femoral neck, and if needed forearm. COMPARISON: DEXA, 10/16/2020. FINDINGS: Lumbar Spine: Bone Mineral Density 0.794 g/cm/cm,T score -3.2, 2 process. Left Hip: Bone Mineral Density 0.642 g/cm/cm,T score -2.9, osteoporosis. Left Femoral Neck: Bone Mineral Density 0.735 g/cm/cm, T score -2.2, osteopenia. (T score greater or equal to -1.0: NORMAL) (T score from -1.1 to -2.4: OSTEOPENIA) (T score less than or equal to -2.5 to: OSTEOPOROSIS) Impression: 1. Based on WHO criteria, the patient is osteoporotic. Compared with the last bone density study, the patient's bone mineral density is not significantly changed since 10/16/2020. Patients with diagnosis of osteoporosis or osteopenia should have regular bone mineral density assess ment. For those eligible for Medicare, routine testing is allowed once every 2 years. Testing frequ ency can be increased for patients who have rapidly progressing disease or for those who are receivin g medical therapy to restore bone mass. Reviewed by: Meli Ortiz MD on 02/11/2022 4:07 PM PDT Approved by: Meli Ortiz MD on 02/11/2022 4:07 PM PDT Station ID: [id number]
== END 2022-02-11 14:35 | disposition home or self-care (01) ==
LOC: DI 14:34
PROVIDERS: ATTEND Internal Medicine
DX: M81.0 Age-related osteoporosis without current pathological fracture (principal)

== ENCOUNTER 2022-02-23 07:33 | Outpatient (CLI) | payer MEDICARE, OTHER | END 2022-02-23 07:34 | disposition home or self-care (01) | LOC: LAB 07:33 | PROVIDERS: ATTEND Internal Medicine | DX: M81.0 Age-related osteoporosis without current pathological fracture (principal) | CPT/HCPCS: 81599; 82340; 82570 ==

== ENCOUNTER 2022-03-09 18:03 | Outpatient (CLI) | payer MEDICARE, OTHER | END 2022-03-09 18:04 | disposition critical access hospital (66) | LOC: EMS 18:03 | DX: R53.1 Weakness (principal); R63.0 Anorexia; R29.6 Repeated falls | CPT/HCPCS: A0425; A0429 ==

== ENCOUNTER 2022-04-07 15:34 | Outpatient (CLI) | payer MEDICARE, OTHER | END 2022-04-07 15:35 | disposition home or self-care (01) | LOC: MAC.MOP 15:34 | PROVIDERS: ATTEND Nurse Practitioner Family | DX: R00.1 Bradycardia, unspecified (principal) | CPT/HCPCS: 93242 ==

== ENCOUNTER 2022-12-27 13:58 | Outpatient (CLI) | payer MEDICARE, OTHER | END 2022-12-27 13:59 | disposition home or self-care (01) | LOC: LAB 13:58 | PROVIDERS: ATTEND Internal Medicine | DX: L60.3 Nail dystrophy (principal); M81.0 Age-related osteoporosis without current pathological fracture | CPT/HCPCS: 84630 ==

== ENCOUNTER 2023-03-06 09:55 | Outpatient (CLI) | payer MEDICARE, OTHER ==
[2023-03-07 07:09] LABS: ESTRADIOL 29.9 pg/mL (.); PROGESTERONE 0.3 ng/mL (.)
== END 2023-03-06 09:56 | disposition home or self-care (01) ==
LOC: LAB 09:55
PROVIDERS: ATTEND Obstetrics & Gynecology
DX: N95.9 Unspecified menopausal and perimenopausal disorder (principal)
CPT/HCPCS: 36415; 82670; 84144; 84403

== ENCOUNTER 2023-04-03 09:32 | Outpatient (CLI) | payer OTHER ==
--- NOTE | 2023-04-03 12:47 | DEXA Report ---
PROCEDURE: Dexa Spine and/or Hip INDICATIONS: OSTEOPOROSIS TECHNIQUE: Dual energy x-ray absorptiometry (DXA) was performed on a [employer] System. Regions measur ed are the AP Spine, femoral neck, and if needed forearm. COMPARISON: 02/11/2022 FINDINGS: Lumbar Spine: Bone Mineral Density 0.980 g/cm/cm,T score -1.7. Since the most recent prior study, there has been a statistically significant increase in bone mineral density by 23.4 percent. It is unclear if there h as been true interval improvement versus an increase in degenerative changes. Left Femoral Neck: Bone Mineral Density 0.773 g/cm/cm, T score -1.9. Previous T score -2.2. Left Hip: Bone Mineral Density 0.705 g/cm/cm,T score -2.4. Since the most recent prior study, there has been a statistically significant increase in bone mineral density by 9.8 percent. It is unclear if there has been true interval improvement versus an increase in degenerative changes. (T score greater or equal to -1.0: NORMAL) (T score from -1.1 to -2.4: OSTEOPENIA) (T score less than or equal to -2.5 to: OSTEOPOROSIS) Impression: By WHO criteria, this patient has low bone density (osteopenia). Interval statistical increase in bone mineral density of the lumbar spine. Interval statistical incre ase in bone mineral density of the hip. Patients with diagnosis of osteoporosis or osteopenia should have regular bone mineral density assess ment. For those eligible for Medicare, routine testing is allowed once every 2 years. Testing frequ ency can be increased for patients who have rapidly progressing disease or for those who are receivin g medical therapy to restore bone mass. Reviewed by: Steven Rousseau MD on 04/03/2023 12:45 PM PDT Approved by: Steven Rousseau MD on 04/03/2023 12:45 PM PDT Station ID: [id number]
== END 2023-04-03 09:33 | disposition home or self-care (01) ==
LOC: DI 09:32
PROVIDERS: ATTEND Internal Medicine
DX: M84.40XA Pathological fracture, unspecified site, initial encounter for fracture (principal); M85.80 Other specified disorders of bone density and structure, unspecified site

== ENCOUNTER 2024-04-03 12:45 | Outpatient (CLI) | payer MEDICARE, OTHER | END 2024-04-03 23:59 | disposition EMS.NT | LOC: EMS 12:45 | DX: Z03.89 Encounter for observation for other suspected diseases and conditions ruled out (principal) ==

== ENCOUNTER 2024-04-03 15:28 | Outpatient (CLI) | payer MEDICARE, OTHER | END 2024-04-03 23:59 | disposition critical access hospital (66) | LOC: EMS 15:28 | PROVIDERS: ATTEND Emergency Medicine | DX: M54.50 Low back pain, unspecified (principal); R53.1 Weakness | CPT/HCPCS: A0425; A0429 ==

== ENCOUNTER 2024-04-03 15:42 | Emergency (ER) | payer MEDICARE, OTHER ==
--- NOTE | 2024-04-03 16:17 | ED Physician Documentation ---
"PD HPI ALTERED MENTAL STATUS - Stated complaint Stated Complaint: BACK PX - Chief complaint Chief Complaint: Back Pain - History obtained from History obtained from: Patient, EMS - History of Present Illness Timing - onset: How many days ago (2-3) Timing - duration: Days (2-3) Timing - details: Abrupt onset, Still present (The patient has noted onset of generalized weakness for the last 3 days. It came on fairly abruptly. She has noticed weakness of her trunk and extremities, essentially general weakness with poor ambulation and falling. No chest pain. Has had flushed feelings at times. No syncope.) Quality / character: Other (She states she slumped backward and struck her flank and low back on furniture. Did not strike her head. Has some low back pain subsequent to falling but did not have it prior to the onset of weakness. No headache or focal weaknesses.) Contributing factors: No: Anticoagulated, Diabetic, Recent illness (She has not had fever per se. She has felt flushed and warm at times. Muscle aches in general. Slight cough. 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 , Ovarian cysts : Incontinence, Nocturia, Frequency HEENT: Chronic vision loss, Chronic sinusitis Psych: Depression, Anxiety, Bipolar disorder, Panic attacks, Post traumatic stress disorder, Obsessive compulsive disorder, Eating disorder Musculoskeletal: Osteoarthritis, Osteoporosis, Fatigue Derm: None - Past Surgical History Past Surgical History: Yes General: 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, Other Ortho: 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, 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, Other - Present Medications Home Medications: Ambulatory Orders Medication Instructions Recorded Confirmed polyethylene glycoL 3350 [Miralax] 17 gm PO Q3D PRN 09/12/18 07/03/23 Levothyroxine [Synthroid] 75 mcg PO DAILY 07/04/19 07/03/23 QUEtiapine [SEROquel] 25 mg PO BID PRN 07/04/19 07/03/23 Acetylcysteine [Nac] 600 mg PO BID 03/09/22 07/03/23 Ascorbic Acid [Vitamin C] 250 mg PO DAILY 03/09/22 07/03/23 Bimatoprost 1 drops EACHEYE HS 03/09/22 07/03/23 Calcipotriene [Dovonex] 1 applic TOP 03/09/22 07/03/23 Calcium Citrate/Vitamin D3 4 tab PO DAILY 03/09/22 07/03/23 [Calcium Cit 200 mg-D3 3 Mcg Tb] Fluoride (Sodium) [Sodium Fluoride] 1 applic TOP 03/09/22 07/03/23 Guanfacine HCl [Intuniv] 2 mg PO HS 03/09/22 07/03/23 Minoxidil/Finasteride [Finapod 1 applic TOP 03/09/22 07/03/23 0.1%-7% Solution] Mirtazapine 15 mg PO HS 03/09/22 07/03/23 Phytonadione (Vit K1) [Vitamin K] 245 mcg PO DAILY 03/09/22 07/03/23 estradioL [Estring] 1 unit .ROUTE PRN 03/09/22 07/03/23 Quetiapine Fumarate [Seroquel] 200 mg PO DAILY PM #0 03/13/22 07/03/23 - Allergies Allergies/Adverse Reactions: Allergies Allergy/AdvReac Type Severity Reaction Status Date / Time lamotrigine Allergy Unknown Verified 04/03/24 15:58 tetracycline Allergy Unknown Verified 04/03/24 15:58 lithium AdvReac Unknown Verified 04/03/24 15:58 - Social History Does the pt smoke?: No Smoking Status: Never smoker Does the pt drink ETOH?: No Does the pt have substance abuse?: No - Immunizations Immunizations are current?: No - POLST Patient has POLST: No POLST Status: Full Code PD ED PE NORMAL - Vitals Vital signs reviewed: Yes - General General: Alert and oriented X 3 (She is awake alert conversant. Somewhat flat affect. She is pleasant.). No: Well developed/nourished (Frail-appearing with low BMI of 21) - HEENT HEENT: Pharynx benign - Neck Neck: Supple, no meningeal sign, No adenopathy - Cardiac Cardiac: RRR, No murmur - Respiratory Respiratory: No respiratory distress, Clear bilaterally - Abdomen Abdomen: Soft, Non tender, Other (left lower lumbar area with tednerness. No noted bruising. ) - Back Back: No CVA TTP, No spinal TTP - Derm Derm: Warm and dry. No: Normal color (pale) - Extremities Extremities: Normal ROM s pain, No edema, No calf tenderness / cord - Neuro Neuro: Alert and oriented X 3, No motor deficit, Normal speech Results - Vitals Vitals: Vital Signs - 24 hr 04/03/24 15:45 Temperature 36.6 C Heart Rate 97 Respiratory 19 Rate Blood Pressure 125/79 O2 Saturation 97 Oxygen O2 Source Room air - EKG (time done) presentation EKG releavant findings:: EKG personally interpreted by author of this note. Relevant findings are: Rhythm: NSR Intervals: Normal TX, Other (IVCD similar to prior ECG) QRS: Normal Ischemia: No: ST elevation c/w ischemia, ST depression Compare to prior EKG: Unchanged from prior EKG - Labs Labs: Microbiology 04/03/24 16:00 Eye Culture - Preliminary Eye - Left Laboratory Tests 04/03/24 04/03/24 04/03/24 16:07 16:27 16:27 WBC 13.3 H RBC 4.42 Hgb 14.3 Hct 42.2 MCV 95.5 MCH 32.4 H MCHC 33.9 RDW 13.1 Plt Count 149 MPV 10.4 Neut # (Auto) 11.0 H Lymph # (Auto) 0.9 L Harper # (Auto) 1.4 H Eos # (Auto) 0.0 Baso # (Auto) 0.0 Absolute Nucleated RBC 0.00 Nucleated RBC % 0.0 Sodium 141 Potassium 3.8 Chloride 105 Carbon Dioxide 25 Anion Gap 11.0 BUN 62 H Creatinine 1.1 Estimated GFR (MDRD) 49 L Glucose 101 Calcium 10.4 H Magnesium 2.7 H Total Bilirubin 0.7 AST 178 H ALT 100 H Alkaline Phosphatase 45 Troponin I High Sens B-Natriuretic Peptide Total Protein 6.7 Albumin 4.1 Globulin 2.6 Albumin/Globulin Ratio 1.6 Lipase 34 TSH 1.92 Nasal Adenovirus (PCR) NOT DETECTED Nasal B. parapertussis DNA (PCR) NOT DETECTED Nasal Coronavir 229E PCR NOT DETECTED Nasal Coronavir HKU1 PCR NOT DETECTED Nasal Coronavir NL63 PCR NOT DETECTED Nasal Coronavir OC43 PCR NOT DETECTED Nasal Enterovir/Rhinovir PCR NOT DETECTED Nasal Influenza B PCR NOT DETECTED Nasal Influenza A PCR NOT DETECTED Nasal Parainfluen 1 PCR NOT DETECTED Nasal Parainfluen 2 PCR NOT DETECTED Nasal Parainfluen 3 PCR NOT DETECTED Nasal Parainfluen 4 PCR NOT DETECTED Nasal RSV (PCR) NOT DETECTED Nasal B.pertussis DNA PCR NOT DETECTED Nasal C.pneumoniae (PCR) NOT DETECTED Umair Human Metapneumo PCR NOT DETECTED Nasal M.pneumoniae (PCR) NOT DETECTED Nasal SARS-CoV-2 (PCR) NOT DETECTED 04/03/24 04/03/24 16:27 16:27 WBC RBC Hgb Hct MCV MCH MCHC RDW Plt Count MPV Neut # (Auto) Lymph # (Auto) Harper # (Auto) Eos # (Auto) Baso # (Auto) Absolute Nucleated RBC Nucleated RBC % Sodium Potassium Chloride Carbon Dioxide Anion Gap BUN Creatinine Estimated GFR (MDRD) Glucose Calcium Magnesium Total Bilirubin AST ALT Alkaline Phosphatase Troponin I High Sens 287.6 H* B-Natriuretic Peptide 84 Total Protein Albumin Globulin Albumin/Globulin Ratio Lipase TSH Nasal Adenovirus (PCR) Nasal B. parapertussis DNA (PCR) Nasal Coronavir 229E PCR Nasal Coronavir HKU1 PCR Nasal Coronavir NL63 PCR Nasal Coronavir OC43 PCR Nasal Enterovir/Rhinovir PCR Nasal Influenza B PCR Nasal Influenza A PCR Nasal Parainfluen 1 PCR Nasal Parainfluen 2 PCR Nasal Parainfluen 3 PCR Nasal Parainfluen 4 PCR Nasal RSV (PCR) Nasal B.pertussis DNA PCR Nasal C.pneumoniae (PCR) Umair Human Metapneumo PCR Nasal M.pneumoniae (PCR) Nasal SARS-CoV-2 (PCR) - Rads (name of study) abd/pel CT Relevant Findings:: Prelim report reviewed (no acute process seen. |Large stool burden.), EMP independent interpretation of test chest xray Relevant Findings:: Prelim report reviewed (no acute abnormality seen.), EMP independent interpretation of test PD Medical Decision Making - ED course Complexity details: reviewed results (chest xray without acute process. ECG unchanged from prior with IVCD but no ST elevations. CT abd/pel due to injury from fall, without acute process. Trop elevated. Viral panel neg. ), considered differential, d/w patient ED course: The patient states she does generally have intermittent balance problems and occasional falls but the last 3 days or so has noticed a generalized weakness consistently with several falls over the last 2 days. Some injury to the left low back but that was after already feeling bad. She has had some mild congestion and general weakness and aches. No noted fevers. No nausea or vomiting but has had less appetite and intake. She is feeling flushed or warm at times but has not taken her temperature. She states she fell couple of times today with difficulty getting back up. She called EMS to help her up earlier today. Fell again today with inability to get up and called EMS and did request coming to the hospital for evaluation. Denies injury to the head. She is not on blood thinners. Denies any dysuria, dyspnea, chest pain, bloody stools or melena and denies any focal weakness. The patient's initial labs are returning. Initially with the eye discharge which I did culture along with general weakness and feeling of myalgias, I was thinking likely should have adenovirus. However her viral PCR was negative for all viruses on the panel. She has been feeling weak for 3 days so I would think would be positive by now. We can treat with eyedrops separately for a pinkeye. I do not think that is the main factor. Chest x-ray was clear without any signs of congestive failure. BNP is normal. White count shows some mild elevation. She is minimally anemic. Electrolytes otherwise are normal. Her troponin is elevated in the mid 200s. She had not had chest pain per se but was having a feeling of general weakness and without other abnormalities showing and no heart murmur etc., I would be concern for an acute NJ as the cause of her weakness. I ordered a repeat troponin to see if there is a significant escalation occurring right now but given her duration of symptoms, more likely to think the event was 2 to 3 days ago. I did give aspirin and Lovenox. She does take a statin at home already. She is not having chest pain at that time. Her blood pressure is controlled. We will start calling for cardiology for presumed further workup for apparent non-ST elevation NJ. Departure - Departure Disposition: 02 Transfer Acute Care Hosp Clinical Impression: General weakness, Elevated troponin, Conjunctivitis, left eye, Non-STEMI (non- ST elevated myocardial infarction) Condition: Stable Record reviewed to determine appropriate education?: Yes"
[2024-04-03] MEDS: SODIUM CHLORIDE 0.9% 1,000 ML IV STA (16:21)
[2024-04-03 16:37] LABS: BASOPHILS % (AUTO) 0.2 %; HCT - HEMATOCRIT 42.2 % (37.0-47.0); HGB - HEMOGLOBIN 14.3 g/dL (12.0-16.0); LYMPHOCYTES # (AUTO) 0.9 10^3/uL (1.5-3.5); LYMPHOCYTES % (AUTO) 6.5 %; MEAN CORPUSCULAR HEMOGLOBIN 32.4 pg (27.0-31.0); MEAN CORPUSCULAR HGB CONC 33.9 g/dL (32.0-36.0); MEAN CORPUSCULAR VOLUME 95.5 fL (81.0-99.0); MEAN PLATELET VOLUME 10.4 fL (7.9-10.8); MONOCYTES # (AUTO) 1.4 10^3/uL (0.0-1.0); MONOCYTES % (AUTO) 10.1 %; NEUTROPHILS % (AUTO) 82.8 %; PLT - PLATELET COUNT 149 10^3/uL (130-450); RED BLOOD COUNT 4.42 10^6/uL (4.20-5.40); RED CELL DISTRIBUTION WIDTH 13.1 % (12.0-15.0); WHITE BLOOD COUNT 13.3 x10^3/uL (4.8-10.8)
--- NOTE | 2024-04-03 16:38 | XRAY Report ---
PROCEDURE: Chest 1V INDICATIONS: weakness TECHNIQUE: One view of the chest was acquired. COMPARISON: 10/04/2020. FINDINGS: Surgical changes and devices: None. Lungs and pleura: No pleural effusions or pneumothorax. Lungs are clear. Mediastinum: Mediastinal contours appear normal. Heart size is normal. Bones and chest wall: No suspicious bony lesions. Overlying soft tissues appear unremarkable. IMPRESSION: No acute cardiopulmonary process. Reviewed by: Qamar King MD on 04/03/2024 4:36 PM PDT Approved by: Qamar King MD on 04/03/2024 4:36 PM PDT Station ID: [id number]
[2024-04-03 16:46] LABS: MAGNESIUM 2.7 mg/dL (1.7-2.3)
[2024-04-03 16:52] LABS: ALBUMIN 4.1 g/dL (3.2-5.5); ALBUMIN/GLOBULIN RATIO 1.6 (1.0-2.2); BILIRUBIN,TOTAL 0.7 mg/dL (0.2-1.0); CALCIUM 10.4 mg/dL (8.5-10.3); CREATININE 1.1 mg/dL (0.6-1.3); POTASSIUM 3.8 mmol/L (3.5-4.5); TOTAL PROTEIN 6.7 g/dL (6.4-8.9)
[2024-04-03] MEDS ORDERED: iohexoL-300 100 ML VIAL ONE (16:53)
[2024-04-03 17:04] LABS: THYROID STIMULATING HORMONE 1.92 uIU/mL (0.34-5.60)
[2024-04-03] MEDS: iohexoL-300 100 ML VIAL IVP ONE (17:11)
[2024-04-03 17:12] LABS: CORONAVIRUS 229E-RESP PCR NOT DETECTED; CORONAVIRUS HKU1-RESP PCR NOT DETECTED; CORONAVIRUS NL63-RESP PCR NOT DETECTED; CORONAVIRUS OC43-RESP PCR NOT DETECTED; SARS-CoV-2 -RESP PCR PANEL NOT DETECTED
[2024-04-03 17:13] LABS: B. PARAPERTUSSIS- RESP PCR PAN NOT DETECTED; B. PERTUSSIS- RESP PCR PANEL NOT DETECTED; C. PNEUMONIAE- RESP PCR PANEL NOT DETECTED; HUMAN METAPNEUMOVIRUS NOT DETECTED; INFLUENZA A- RESP PCR PANEL NOT DETECTED; INFLUENZA B - RESP PCR PANEL NOT DETECTED; M. PNEUMONIAE- RESP PCR PANEL NOT DETECTED; PARAINFLUENZA VIRUS 1 NOT DETECTED; PARAINFLUENZA VIRUS 2 NOT DETECTED; PARAINFLUENZA VIRUS 3 NOT DETECTED; PARAINFLUENZA VIRUS 4 NOT DETECTED; RHINOVIRUS/ENTEROVIRUS NOT DETECTED; RSV- RESP PCR PANEL NOT DETECTED
[2024-04-03] MEDS: ASPIRIN CHEW 81 MG TABLET PO STA (17:19)
--- NOTE | 2024-04-03 17:22 | CT Report ---
PROCEDURE: Abdomen/Pelvis W INDICATIONS: fall with left lower abd/lumbar pain CONTRAST: Omni 300 100ml TECHNIQUE: After the administration of intravenous contrast, a CT scan of the abdomen and pelvis was performed. Images were recorded and evaluated at appropriate window settings. Reformats: coronal and sagittal. F or radiation dose reduction, the following was used: automated exposure control, adjustment of mA and /or kV according to patient size. COMPARISON: CT abdomen pelvis 11/15/2021 FINDINGS: Image quality: Diagnostic. Lower chest: Unremarkable. Liver: Low-attenuation right hepatic dome foci are present, unchanged likely small cysts. Gallbladder: Unremarkable. Biliary tree: No intrahepatic or extrahepatic dilation, accounting for age. Spleen: No splenomegaly. Pancreas: No pancreatic ductal dilation. Adrenals: No adrenal nodule. Kidneys and ureters: No hydronephrosis. No renal cystic lesion which requires follow up. No solid mas s. Simple bilateral renal cysts. Stomach, bowel and peritoneum: No gastric or small bowel dilation. No abnormal wall thickening. No pa thologic free fluid. Prominent colonic stool without obstruction. Lymph nodes: No central or retroperitoneal adenopathy. Vessels: No infrarenal aortic aneurysm. Patent portal vein. PELVIS Reproductive organs: Unremarkable. Bladder: No abnormal wall thickening, accounting for underdistention. Pelvic lymph nodes: No pelvic adenopathy by size criteria. Bones: No aggressive osseous abnormality. Other: No significant ventral or inguinal hernia. IMPRESSION: Significant colonic stool without obstruction. Reviewed by: Susie Doyle MD on 04/03/2024 5:21 PM PDT Approved by: Susie Doyle MD on 04/03/2024 5:21 PM PDT Station ID: [id number]
[2024-04-03 18:23] LABS: BILIRUBIN,URINE NEGATIVE (NEGATIVE); GLUCOSE, URINE (UA) NEGATIVE (NEGATIVE); KETONES,URINE (UA) 15 mg/dL (NEGATIVE); LEUKOCYTE ESTERASE, URINE NEGATIVE (NEGATIVE); NITRITE,URINE POSITIVE (NEGATIVE); OCCULT BLOOD,URINE LARGE (NEGATIVE); PH,URINE 6.5 PH (5.0-7.5); PROTEIN,URINE NEGATIVE (NEGATIVE); UROBILINOGEN,URINE 0.2 (NORMAL) E.U./dL (NORMAL)
[2024-04-03] MEDS: SULFACETAMIDE 10% OPHTH DROPS LEFTEYE STA (18:26)
[2024-04-03] MEDS: ENOXAPARIN 60 MG/0.6 ML SYRINGE SUBQ STA (18:26)
[2024-04-03 18:29] LABS: CLARITY,URINE HAZY (CLEAR)
[2024-04-03 18:38] LABS: RBC,URINE 0-5 /HPF (0-5)
[2024-04-03 18:39] LABS: BACTERIA,URINE Moderate /HPF (None Seen); SQUAMOUS EPITHELIAL CELL,UR RARE Squamous (<= Few)
[2024-04-03] MEDS: cefTRIAXone 1 GM VIAL IVP STA (20:37)
[2024-04-04] MEDS: cephALEXin 250 MG CAPSULE PO SCH (08:59)
[2024-04-04 14:29] VITALS: BP 143/61; O2SAT 100
[2024-04-04] MEDS ORDERED: ENOXAPARIN 60 MG/0.6 ML SYRINGE SUBQ SCH (18:00)
--- NOTE | 2024-04-06 15:09 | ED Physician Documentation ---
ED Addendum - Addendum Addendum: 04/06/24 15:09 Culture review, she went to [facility] and I have asked the nurse to call and fax results to them
== END 2024-04-04 14:15 | disposition short-term general hospital (02) ==
LOC: EDUNIT# → EDSEX → ED 15:42
DX: I21.4 Non-ST elevation (NSTEMI) myocardial infarction (principal); R79.89 Other specified abnormal findings of blood chemistry; R53.1 Weakness; H10.9 Unspecified conjunctivitis; E78.00 Pure hypercholesterolemia, unspecified; E03.9 Hypothyroidism, unspecified; Z79.899 Other long term (current) drug therapy
CPT/HCPCS: 36415; 71045; 74177; 80053; 81001; 83690; 83735; 83880; 84443; 84484; 85025; 87070; 87077; 87086; 87181; 87633; 93005; 96372; 96374; 99285; A9270; J1650; Q9967; 81003